=== PATIENT | female | born 1945 | race Caucasian/White ===

== ENCOUNTER 2017-12-27 15:08 | Outpatient (CLI) | payer MEDICARE, OTHER | END 2017-12-27 15:09 | disposition home or self-care (01) | LOC: BICRAD 15:08 | PROVIDERS: ATTEND Family Medicine | DX: M54.9 Dorsalgia, unspecified (principal) | CPT/HCPCS: 72072; 72100 ==

== ENCOUNTER 2018-03-01 09:09 | Outpatient (CLI) | payer MEDICARE ==
--- NOTE | 2018-03-01 10:46 | RAD ---
CHEST TWO VIEWS: HISTORY: Dyspnea. COMPARISON: Chest radiograph from 11/03/2016. FINDINGS: There is an asymmetric density of the left upper lobe, which appears relatively new from the comparis on examination. There are chronic peripheral interstitial markings. There are multiple wedge compression deformities of the lower thoracic spine, progressed from the cesar or examination. There are also mid thoracic spine compression deformities. IMPRESSION: 1. New nodular density in the left upper lobe, peripherally. Follow-up CT chest may be beneficial. 2. Progressive spondylosis with worsening and new compression fractures of the thoracic spine and th oracolumbar junction. POS: [facility]
== END 2018-03-01 09:10 | disposition home or self-care (01) ==
LOC: RAD 09:09
PROVIDERS: ATTEND Internal Medicine
DX: R91.8 Other nonspecific abnormal finding of lung field (principal); M47.895 Other spondylosis, thoracolumbar region; M48.55XA Collapsed vertebra, not elsewhere classified, thoracolumbar region, initial encounter for fracture
CPT/HCPCS: 71046

== ENCOUNTER 2018-03-07 08:16 | Outpatient (CLI) | payer MEDICARE | END 2018-03-07 08:17 | disposition home or self-care (01) | LOC: BICCT 08:16 | PROVIDERS: ATTEND Internal Medicine | DX: R91.1 Solitary pulmonary nodule (principal); S22.089A Unspecified fracture of T11-T12 vertebra, initial encounter for closed fracture | CPT/HCPCS: 71250 ==

== ENCOUNTER 2018-07-03 13:12 | Emergency (ER) | payer MEDICARE ==
[2018-07-03 14:56] LABS: #Eosinphils 0.1 thou/uL (0.0-0.7); #Lymphocytes 1.6 thou/uL (1.20-3.40); #Monocytes 0.8 thou/uL (0.11-0.59); #Neutrophils 5.9 thou/uL (1.40-6.50); %Basophils 0.5 % (0.0-1.0); %Eosinophils 0.9 % (0.0-10.0); %Lymphocytes 18.6 % (21.0-51.0); %Monocytes 9.1 % (0.0-10.0); %Neutrophils 70.9 % (42.0-75.0); Hemoglobin 10.9 g/dL (12.0-16.0); Mean Corpuscular HGB CONC 32.2 g/dL (32.0-36.0); Mean Corpuscular Hemoglobin 19.9 pg (27.0-31.0); Mean Corpuscular Volume 61.8 fL (78.0-98.0); Mean Platelet Volume 9.9 fL (7.4-10.4); Platelet Count 179 thou/uL (130-400); RBC Distribution Width 15.4 % (11.5-14.5); Red Blood Cell (RBC) Count 5.49 mill/uL (4.20-5.40); White Blood Cell (WBC) Count 8.3 thou/uL (4.8-10.8)
[2018-07-03 15:11] LABS: Anion Gap 14 mmol/L (10-20); BUN (Urea Nitrogen) 36 mg/dL (9.8-20.1); Calc. Creatinine Clearance 0 mL/min (70-130); Calcium 9.5 mg/dL (7.8-10.44); Carbon Dioxide 21 mmol/L (23-31); Chloride 107 mmol/L (98-107); Estimated GFR-MDRD 29; Glucose 123 mg/dL (83-110); Potassium 3.9 mmol/L (3.5-5.1); Sodium 138 mmol/L (136-145)
--- NOTE | 2018-07-03 15:31 | CT ---
PELVIC CT WITHOUT CONTRAST: Date: 07/03/18 INDICATION: Pelvic CT without contrast. INDICATION: Post-traumatic pelvic pain. FINDINGS: Reference is made to recent radiographs, same date. There is a comminuted, mildly displaced fracture at the left iliac ala, as was depicted on preceding radiographs. Mild surrounding soft tissue hematoma is present, indicating acuity, along with the frac ture appearance. There is a mild degree of high density fluid occupying the left retroperitoneum and asymmetric enlargement of the left iliacus muscle indicative of intramuscular hematoma. As was depict ed on preceding radiographs, there is a chronic fracture deformity of the inferior left pubic ramus. Subtle cortical irregularity also involves the lateral aspect of the left superior pubic ramus, also indicative of a chronic post-traumatic deformity. There is diffuse osseous demineralization. Incidental note of vascular disease and cholelithiasis. There is patient motion that degrades image q uality. IMPRESSION: Comminuted, mildly displaced fracture of the left iliac ala with adjacent hematoma, including intramu scular hematoma, as well as extension of mild hemorrhagic ascites into the left retroperitoneum. Foll ow-up imaging may be obtained as clinically necessary. POS: [facility]
== END 2018-07-03 16:15 | disposition home or self-care (01) ==
LOC: ERS 13:12
DX: S32.302A Unspecified fracture of left ilium, initial encounter for closed fracture (principal); M81.0 Age-related osteoporosis without current pathological fracture; E03.9 Hypothyroidism, unspecified; I10 Essential (primary) hypertension; J44.9 Chronic obstructive pulmonary disease, unspecified; F41.9 Anxiety disorder, unspecified; Z87.891 Personal history of nicotine dependence; Z79.899 Other long term (current) drug therapy; Z79.82 Long term (current) use of aspirin; W19.XXXA Unspecified fall, initial encounter
CPT/HCPCS: 36415; 72192; 80048; 85025

== ENCOUNTER 2018-08-30 14:03 | Outpatient (CLI) | payer MEDICARE ==
--- NOTE | 2018-08-30 16:48 | RAD ---
TWO VIEWS OF THE CHEST: 08/30/18 COMPARISON: 10/09/16 HISTORY: Walking pneumonia. FINDINGS: Two views of the chest shows a normal sized cardiomediastinal silhouette with atherosclerotic calcifi cations in the aorta. Increased interstitial markings are present. There is no evidence of consolidat ion, mass or pleural effusion. Degenerative changes are seen in the spine. There are multiple tierra jaden fractures in the lower thoracic spine. IMPRESSION: No evidence of acute cardiopulmonary disease. POS: [facility]
== END 2018-08-30 14:04 | disposition home or self-care (01) ==
LOC: RAD 14:03
PROVIDERS: ATTEND Family Medicine
DX: J18.9 Pneumonia, unspecified organism (principal)
CPT/HCPCS: 36415; 71046; 80053; 85025; 85060

== ENCOUNTER 2018-08-31 12:14 | Inpatient (IN) | payer MEDICARE ==
--- NOTE | 2018-08-31 12:51 | RAD ---
CHEST TWO VIEWS: History: Chest pain Comparison: Prior day. FINDINGS: Mild increased peripheral opacity in the right lung base. Chronic interstitial markings in both lung bases. No pneumothorax, no large effusion. IMPRESSION: Findings concerning for developing pneumonia, peripheral right lower lobe. POS: [facility]
[2018-08-31] MEDS ORDERED: Azithromycin 500 MG VIAL ONE (13:12)
[2018-08-31 13:24] LABS: ALT (SGPT) 8 U/L (8-55); AST (SGOT) 14 U/L (5-34); Alkaline Phosphatase 107 U/L (40-150); Anion Gap 18 mmol/L (10-20); BUN (Urea Nitrogen) 17 mg/dL (9.8-20.1); Bilirubin, Total 2.2 mg/dL (0.2-1.2); Calc. Creatinine Clearance 0 mL/min (70-130); Calcium 9.3 mg/dL (7.8-10.44); Carbon Dioxide 21 mmol/L (23-31); Chloride 105 mmol/L (98-107); Estimated GFR-MDRD 43; Globulin 3.8 g/dL (2.4-3.5); Glucose 136 mg/dL (83-110); Potassium 3.9 mmol/L (3.5-5.1); Protein, Total 7.8 g/dL (6.0-8.3); Sodium 140 mmol/L (136-145)
[2018-08-31 13:27] LABS: #Lymphocytes 0.4 thou/uL (1.20-3.40); #Monocytes 0.7 thou/uL (0.11-0.59); #Neutrophils 8.9 thou/uL (1.40-6.50); %Basophils 0.5 % (0.0-1.0); %Lymphocytes 4.3 % (21.0-51.0); %Monocytes 7.1 % (0.0-10.0); %Neutrophils 88.1 % (42.0-75.0); Anisocytosis SLIGHT = 6-15 cells (100X) (0-5/hpf); Elliptocytes SLIGHT = 2-5 cells (100X) (0-1/hpf); Hemoglobin 8.2 g/dL (12.0-16.0); Hypochromia SLIGHT = 6-15 cells (100X) (0-5/hpf); MDiff Complete? YES; Mean Corpuscular HGB CONC 30.2 g/dL (32.0-36.0); Mean Corpuscular Hemoglobin 18.7 pg (27.0-31.0); Mean Platelet Volume 7.6 fL (7.4-10.4); Microcytosis SLIGHT = 6-15 cells (100X) (0-5/hpf); PLT Morphology Comment Appears Adequate; Platelet Count 123 thou/uL (130-400); RBC Distribution Width 15.6 % (11.5-14.5); Target Cells SLIGHT = 2-5 cells (100X) (0-1/hpf); Tear Drops SLIGHT = 2-5 cells (100X) (0-1/hpf); White Blood Cell (WBC) Count 10.1 thou/uL (4.8-10.8)
[2018-08-31] MEDS ORDERED: Sodium Chloride 0.9% 100 ML ONE (14:23)
[2018-08-31] MEDS ORDERED: cefTRIAXone\\ROCEPHIN 2 GM VIAL ONE (14:23)
[2018-08-31 15:39] VITALS: BMI 25.0
[2018-08-31] MEDS ORDERED: Sodium Chloride 0.9% 1,000 ML IV SCH ×2 (15:50→17:23)
[2018-08-31 18:17] LABS: #Lymphocytes 0.7 thou/uL (1.20-3.40); #Monocytes 0.7 thou/uL (0.11-0.59); #Neutrophils 7.7 thou/uL (1.40-6.50); %Basophils 0.2 % (0.0-1.0); %Eosinophils 0.1 % (0.0-10.0); %Lymphocytes 8.1 % (21.0-51.0); %Monocytes 7.8 % (0.0-10.0); %Neutrophils 83.8 % (42.0-75.0); Hemoglobin 8.1 g/dL (12.0-16.0); Mean Corpuscular HGB CONC 30.9 g/dL (32.0-36.0); Mean Corpuscular Hemoglobin 19.3 pg (27.0-31.0); Mean Corpuscular Volume 62.4 fL (78.0-98.0); Mean Platelet Volume 10.4 fL (7.4-10.4); Platelet Count 179 thou/uL (130-400); RBC Distribution Width 17.6 % (11.5-14.5); Red Blood Cell (RBC) Count 4.21 mill/uL (4.20-5.40); White Blood Cell (WBC) Count 9.2 thou/uL (4.8-10.8)
[2018-08-31 18:46] LABS: Anisocytosis SLIGHT = 6-15 cells (100X) (0-5/hpf); Hypochromia SLIGHT = 6-15 cells (100X) (0-5/hpf); MDiff Complete? YES; Microcytosis SLIGHT = 6-15 cells (100X) (0-5/hpf); Ovalocytes SLIGHT = 2-5 cells (100X) (0-1/hpf); PLT Morphology Comment Appears Adequate; Poikilocytosis SLIGHT = 6-15 cells (100X) (0-5/hpf); Polychromasia SLIGHT = 2-3 cells (100X) (0-2/hpf); Schistocytes SLIGHT = 2-5 cells (100X) (0-1/hpf); Target Cells SLIGHT = 2-5 cells (100X) (0-1/hpf); Tear Drops SLIGHT = 2-5 cells (100X) (0-1/hpf)
--- NOTE | 2018-09-01 00:19 | HP ---
HISTORY OF PRESENT ILLNESS: This is a 73-year-old white female with history of COPD, hypothyroidism, and hypertension, who presents with cough and fever. The patient was seen in the office the day prior and was diagnosed with walking pneumonia and was given a prescription of Levaquin. However, the patient continued to have increasing cough, congestion, and shortness of breath. She had a fever of 100.6 at home. She presented to the emergency room, where her O2 saturations were noted to be in the upper 80s and was admitted for further treatment. Over the years, the patient has had several bouts of bronchitis/pneumonia with COPD exacerbations. She has been followed by Dr. Peña in the office. PAST MEDICAL HISTORY: COPD, hypothyroidism, hypertension, tobacco abuse; osteoporosis, severe. PAST SURGICAL HISTORY: Include PE tubes, colonoscopy in 2009. FAMILY HISTORY: Father , unknown reason. Mother with heart disease. Maternal aunt with diabetes. The patient does have one son and two daughters, who are healthy. SOCIAL HISTORY: She is a former smoker, she quit in 04/15/2015 and began smoking in her mid 20s. Therefore, she has about a 50-year tobacco history. She is single. She does have three children. MEDICATIONS: Include; 1. Aspirin 81 daily. 2. Folic acid 400 daily. 3. DuoNeb treatments p.r.n. 4. Nexium daily. 5. Trelegy Ellipta 1 puff daily. 6. Simvastatin 20 daily. 7. Zoloft 50 daily. 8. Losartan 25 daily. 9. Levothyroxine 75 daily. ALLERGIES: NONE. REVIEW OF SYSTEMS: As above. PHYSICAL EXAMINATION: VITAL SIGNS: Temperature 98.0, pulse 78, respirations 22, pulse ox 98% on 2 L O2, and blood pressure 126/59. GENERAL: The patient looks good at this time. She is on 2 L O2. HEENT: Clear. NECK: Supple. HEART: Regular rate and rhythm. LUNGS: With no wheezing present. Bilateral diffuse rales. ABDOMEN: Soft. No hepatosplenomegaly noted. EXTREMITIES: With no edema. LABORATORY DATA: White count 10.1, hemoglobin and hematocrit 8.2 and 27.3, anemia. Electrolytes normal. Creatinine 1.22, BUN 17, glucose 136. TIBC 160, iron was 30 recently with a ferritin level of 732, but prior ferritin was 2500 in September of 2016; in March of 2017, it was 932. 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 Urine showed 7 to 10 rbc's. Chest x-ray with right lower lobe pneumonia. ASSESSMENT: 1. Right lower lobe pneumonia with sepsis. Blood pressure noted to be low in the ER. 2. Dehydration. 3. Hyperbilirubinemia, mild. 4. Beta thalassemia minor. 5. History of recent pelvic fracture from a fall. PLAN: 1. Hydrate slowly. 2. Rocephin and Zithromax IV daily. 3. Steroid, Solu-Medrol 20 IV q.8. 4. DuoNeb q.6. 5. Abdominal ultrasound. 6. Check blood cultures. Job ID: [id number]
[2018-09-01 06:15] LABS: ALT (SGPT) 9 U/L (8-55); AST (SGOT) 14 U/L (5-34); Albumin 3.1 g/dL (3.4-4.8); Alkaline Phosphatase 94 U/L (40-150); Anion Gap 12 mmol/L (10-20); BUN (Urea Nitrogen) 14 mg/dL (9.8-20.1); Bilirubin, Total 0.7 mg/dL (0.2-1.2); Calc. Creatinine Clearance 46 mL/min (70-130); Calcium 7.9 mg/dL (7.8-10.44); Carbon Dioxide 20 mmol/L (23-31); Chloride 111 mmol/L (98-107); Estimated GFR-MDRD 57; Glucose 142 mg/dL (83-110); Iron 8 ug/dL (50-170); Potassium 3.7 mmol/L (3.5-5.1); Protein, Total 6.1 g/dL (6.0-8.3); Sodium 139 mmol/L (136-145)
--- NOTE | 2018-09-01 08:02 | ULT ---
SONOGRAM RIGHT UPPER QUADRANT: HISTORY: Right upper quadrant pain. Abnormal liver function tests. FINDINGS: Echogenic sludge and shadowing stones are present in the dependent portion of the gallbladder lumen. No gallbladder wall thickening or pericholecystic fluid. The common duct is 0.6 cm. Liver unremark able without focal mass or intrahepatic biliary dilatation. No free fluid. IMPRESSION: Cholelithiasis. No evidence of acute biliary obstruction. POS: [facility]
[2018-09-01] MEDS: Enoxaparin Sodium 40 MG/0.4 ML SYRINGE SC SCH (10:41)
--- NOTE | 2018-09-01 12:55 | PRG ---
DATE OF SERVICE: 09/01/2018 SUBJECTIVE: The patient is feeling better this morning. However, she still has a significant productive cough. She is on 2 L of O2. OBJECTIVE: VITAL SIGNS: Temperature is 98.2, heart rate 79, respirations 16, and pulse ox 97% on O2 of 2 L. HEART: Regular rate and rhythm. LUNGS: Occasional expiratory wheeze other than the diffuse rales. ABDOMEN: Soft. EXTREMITIES: No edema. LABORATORY DATA: White count 9.2, H and H of 8.1 and 26.3. Electrolytes normal. Creatinine 0.96 and BUN 14. Iron level 8. Ferritin 2145. Abdominal ultrasound done this morning. ASSESSMENT: 1. Right lower lobe pneumonia. 2. Dehydration. 3. Hypotension, resolved. 4. Mild hyperbilirubinemia. 5. Beta thalassemia minor. 6. History of recent pelvic fracture from a fall. PLAN: 1. Continue to slowly hydrate. 2. Continue Rocephin and Zithromax. 3. Continue steroids. 4. Continue DuoNeb. 5. Check abdominal ultrasound. 6. Low iron level and elevated ferritin consistent with acute phase reactant. May still require iron supplementation. We will discuss with Hem-Onc. Job ID: [id number]
[2018-09-01] MEDS ORDERED: Azithromycin 500 MG in Sodium Chloride 0.9% 250 ML 250 ML IVPB SCH (13:00)
[2018-09-01] MEDS ORDERED: cefTRIAXone\\ROCEPHIN 1 GM in Sodium Chloride 0.9% 100 ML IVPB SCH (14:00)
[2018-09-02 07:35] VITALS: BP 163/79; TEMP 97.4
[2018-09-02] MEDS: Enoxaparin Sodium 40 MG/0.4 ML SYRINGE SC SCH (08:29)
--- NOTE | 2018-09-03 01:23 | DIS ---
DATE OF ADMISSION: 08/31/2018 DATE OF DISCHARGE: 09/02/2018 DISCHARGE DIAGNOSES: 1. Right lower lobe pneumonia. 2. Dehydration. 3. Hypertension, resolved. 4. Mild hyperbilirubinemia. 5. Cholelithiasis. 6. Beta thalassemia minor. 7. History of recent pelvic fracture from a fall. FOLLOWUP: With Dr. Khoi Garvey in 3 days. DISCHARGE MEDICATIONS: 1. Cefdinir 300 p.o. b.i.d., #20. 2. Medrol Dosepak. 3. DuoNeb treatments at home q.6h p.r.n. 4. Folic acid daily. 5. Aspirin 81 daily. 6. Nexium 20 daily. 7. Levothyroxine 75 daily. 8. Loratadine 10 daily. 9. Losartan 25 daily. 10. Sertraline 50 daily. 11. Simvastatin 20 daily. BRIEF HISTORY: This is a 73-year-old female with a history of COPD, hypothyroidism and hypertension, presents with cough and fever. She was seen in the office 1 day prior and was diagnosed with pneumonia and given a prescription of Levaquin, however, she continued to have increasing cough and congestion with shortness of breath. She had a fever of 100.6 at home. She presented to the emergency room, where her O2 saturations were less than 90. HOSPITAL COURSE: This patient was admitted, started on Rocephin and Zithromax IV daily. Over two days, she improved dramatically. She is doing well this morning. She is desiring to go home. She will be sent home on cefdinir and a Medrol Dosepak. She is doing well this morning. A chest x-ray did reveal right lower lobe pneumonia. Job ID: [id number]
--- NOTE | 2018-09-05 13:25 | PQF ---
LEXI TALAMANTES DAVID R JR MD [id number] CLINICAL DOCUMENTATION CLARIFICATION FORM: POST DISCHARGE Addendum to original discharge summary date: ____ Late entry note date: __ DATE: 09/05/2018 ATTN: KOKO SARKAR Please exercise your independent, professional judgment in responding to the clarification form. Clinical indicators are provided on the bottom of this form for your review Please check appropriate box(s) to clarify if the following diagnosis has been ruled in or ruled out: SEPSIS [ ] Ruled in diagnosis [ ] Continue to treat [ ] Resolved [ ] Ruled out diagnosis [ ] Cannot rule out diagnosis [ ] Other diagnosis [ ] Unable to determine In addition, please specify: Present on Admission (POA): [ ] Yes [ ] No [ ] Unable to determine For continuity of documentation, please document condition throughout progress notes and discharge summary. Thank You. CLINICAL INDICATORS - SIGNS / SYMPTOMS / LABS: 08/31 H&P - Vitals: Temp: 98.0, Pulse: 78, Respirations: 22 Right lower lobe pneumonia with sepsis - Blood pressure low in the ER. 09/01 PN - Hypotension, resolved No further documentation of Sepsis documented. DS - Right lower lobe pneumonia RISK FACTORS: Right lower lobe pneumonia Dehydration Beta thalassemia minor TREATMENTS: 08/31 H&P - IV Antibiotics - Rocephin, Zithromax (This form is maintained as a part of the permanent medical record) 2014 [employer], [employer]. All Rights Reserved Jayne Batista, [facility], [facility] [email or web address] [phone] MTDD
== END 2018-09-02 10:09 | disposition home or self-care (01) | DRG 194 ==
LOC: SCSER 12:14 → T4-B 15:26
PROVIDERS: ADMIT Family Medicine; ATTEND Family Medicine
DX: J18.1 Lobar pneumonia, unspecified organism (principal); J44.0 Chronic obstructive pulmonary disease with (acute) lower respiratory infection; E86.0 Dehydration; D56.3 Thalassemia minor; E03.9 Hypothyroidism, unspecified; I10 Essential (primary) hypertension; M81.0 Age-related osteoporosis without current pathological fracture; Z87.891 Personal history of nicotine dependence; S32.9XXD Fracture of unspecified parts of lumbosacral spine and pelvis, subsequent encounter for fracture with routine healing; W19.XXXD Unspecified fall, subsequent encounter; K80.20 Calculus of gallbladder without cholecystitis without obstruction
CPT/HCPCS: 36415; 71046; 76705; 80053; 82728; 83540; 83605; 85025; 87040; 94640; 96365; 96367; G8978-GP-CK; G8979-GP-CK; G8980-GP-CK; J0456; J0696; J1650; J2920; J7050; J7620

== ENCOUNTER 2018-09-27 15:14 | Inpatient (IN) | payer MEDICARE ==
[2018-09-27 16:21] LABS: ALT (SGPT) 12 U/L (8-55); AST (SGOT) 14 U/L (5-34); Albumin 3.4 g/dL (3.4-4.8); Alkaline Phosphatase 113 U/L (40-150); Anion Gap 12 mmol/L (10-20); BUN (Urea Nitrogen) 19 mg/dL (9.8-20.1); Bilirubin, Total 1.4 mg/dL (0.2-1.2); Calc. Creatinine Clearance 0 mL/min (70-130); Calcium 8.3 mg/dL (7.8-10.44); Carbon Dioxide 20 mmol/L (23-31); Chloride 110 mmol/L (98-107); Estimated GFR-MDRD 38; Globulin 2.6 g/dL (2.4-3.5); Glucose 131 mg/dL (83-110); Potassium 3.8 mmol/L (3.5-5.1); Sodium 138 mmol/L (136-145)
[2018-09-27 16:35] LABS: #Eosinphils 0.1 thou/uL (0.0-0.7); #Lymphocytes 0.7 thou/uL (1.20-3.40); #Monocytes 0.6 thou/uL (0.11-0.59); #Neutrophils 9.6 thou/uL (1.40-6.50); %Eosinophils 0.5 % (0.0-10.0); %Lymphocytes 6.4 % (21.0-51.0); %Monocytes 5.5 % (0.0-10.0); %Neutrophils 87.6 % (42.0-75.0); Hemoglobin 8.8 g/dL (12.0-16.0); Mean Corpuscular HGB CONC 31.7 g/dL (32.0-36.0); Mean Corpuscular Hemoglobin 19.8 pg (27.0-31.0); Mean Corpuscular Volume 62.4 fL (78.0-98.0); Mean Platelet Volume 7.9 fL (7.4-10.4); Platelet Count 170 thou/uL (130-400); RBC Distribution Width 19.3 % (11.5-14.5); Red Blood Cell (RBC) Count 4.44 mill/uL (4.20-5.40)
[2018-09-27 17:11] LABS: Bilirubin Moderate (Negative); Blood, Urine Negative (Negative); Clarity CLOUDY (Clear); Glucose, Urine (Dipstick) Negative (Negative); Leukocyte Small (Negative); Nitrite Negative (Negative); Protein, Urine (Dipstick) 100 mg/dL (Neg-Trace); Specific Gravity, Urine 1.021 (1.002-1.036)
[2018-09-27 17:13] LABS: WBC/HPF 0-3 HPF (0-3)
[2018-09-27 17:15] LABS: Pathc Cast-AUWi Flag 11.48 (0-2.49)
--- NOTE | 2018-09-27 17:17 | RAD ---
SINGLE VIEW OF THE CHEST: COMPARISON: 10/08/2016. HISTORY: Fall this morning. Femur fracture. Preoperative radiograph. FINDINGS: A single view of the chest shows a normal-size cardiomediastinal silhouette with atherosclerotic calc ifications in the aorta. There is no evidence of consolidation, mass, or pleural effusion. IMPRESSION: No evidence of acute cardiopulmonary disease. POS: [facility]
--- NOTE | 2018-09-27 17:21 | HP ---
ATTENDING SURGEON: Dr. Jalloh. CONSULTATIONS: Orthopedics, Dr. Bryan. HISTORY OF PRESENT ILLNESS: The patient is a 73-year-old woman who was reportedly walking on her porch today when she slipped and fell, landing in a flower bed. She reports that she laid there for 30 to 60 minutes before being able to be helped back in her house. The patient denied loss of consciousness, striking her head or any syncopal symptoms before or after her fall. [facility] where she underwent evaluation and examination and was noted to have a proximal left femur fracture, at which time she was transferred to our facility for admission and orthopedic evaluation. ALLERGIES: NONE. CURRENT MEDICATIONS: Synthroid, aspirin, Zoloft, losartan, simvastatin, Breo Ellipta. PAST MEDICAL HISTORY: COPD, hypothyroidism, hypertension, osteoporosis, chronic anemia thought to be thalassemia, anxiety. PAST SURGICAL HISTORY: Hysterectomy. SOCIAL HISTORY: The patient lives independently at home. She is a former tobacco user. She quit smoking approximately 10 years ago. Denies drug or alcohol use. REVIEW OF SYSTEMS: A 10-point review of systems is negative as otherwise stated. PHYSICAL EXAMINATION: VITAL SIGNS: Blood pressure 112/63, heart rate 71, respirations 16, oxygen saturation is 93% on room air, and temperature is 97.9. GENERAL: The patient is resting comfortably in bed. She is awake, alert, and oriented x3. Isadora Coma Scale is 15. HEENT: Head is normocephalic and atraumatic. Eyes, extraocular motion intact. PERRLA bilaterally. Ears are atraumatic without discharge. Nose are atraumatic without discharge. Oropharynx is clear. NECK: Nontender. Trachea is midline. No JVD. CHEST: Clear to auscultation with good inspiratory and expiratory effort. HEART: Regular rate and rhythm. ABDOMEN: Soft, flat, nontender with active bowel sounds. PELVIS: Stable with tenderness to the left hip consistent with her proximal femur fracture. The patient is neurovascularly intact x4. BACK: By report is atraumatic and nontender. LABORATORY FINDINGS: White blood cell count 11.0, hemoglobin 8.8, hematocrit 27.7, platelets 170. Sodium 138, potassium 3.8, chloride 110, CO2 of 20, BUN 19, creatinine 1.35, glucose 131. LFTs are unremarkable. RADIOGRAPHS: Subtrochanteric left proximal femur fracture. AP chest x-ray is unremarkable for acute findings. ASSESSMENT AND PLAN: 1. Status post mechanical fall. 2. Left proximal femur fracture. 3. History of chronic obstructive pulmonary disease. 4. History of chronic anemia. 5. Acute kidney injury. PLAN: Plan will be to hydrate the patient. Pain control, pulmonary toilet, gastritis, mechanical VTE prophylaxis. The patient will be n.p.o. after midnight. The patient was evaluated in the emergency department by Dr. Jalloh and Dr. Bryan. Job ID: [id number]
[2018-09-27 17:34] LABS: Hyaline Casts/LPF 4-6 HYALINE CAST LPF (0-3 Hyaline); Manual Microscopic Reviewed? No Path Casts Seen
[2018-09-27 17:35] LABS: Bacteria/HPF 1+ HPF (None Seen); Renal Epithelial None Seen HPF (0-3); Transitional Epithelial NONE SEEN HPF (0-3)
[2018-09-27] MEDS ORDERED: Ondansetron ODT 4 MG TAB PO PRN (21:01)
[2018-09-27] MEDS ORDERED: traMADol HCl 50 MG TAB PO PRN ×2 (21:01)
[2018-09-27] MEDS ORDERED: Dextrose 5% in Water 1,000 ML IV PRN (21:01)
[2018-09-27] MEDS ORDERED: Ondansetron PF 4 MG/2 ML Vial IVP PRN (21:01)
[2018-09-27] MEDS ORDERED: Morphine 4 MG/ML VIAL SLOW IVP PRN ×2 (21:01)
[2018-09-27] MEDS ORDERED: hydrALAZINE 20 MG/ML VIAL SLOW IVP PRN (21:01)
[2018-09-27] MEDS ORDERED: Dextrose 50% Abboject 50 ML SYRINGE SLOW IVP PRN (21:01)
[2018-09-27] MEDS: Sodium Chloride 0.9% 1,000 ML IV SCH (22:02)
[2018-09-27] MEDS: Acetaminophen 1,000 MG in Premix Bag 1 BAG IVPB SCH (22:02)
[2018-09-27 22:24] VITALS: BMI 22.9
[2018-09-28] MEDS: Acetaminophen 1,000 MG in Premix Bag 1 BAG IVPB SCH ×4 (03:40→22:38)
[2018-09-28] MEDS ORDERED: Sodium Chloride 0.9% 500 ML IVPB SCH (06:15)
--- NOTE | 2018-09-28 07:30 | CON ---
DATE OF CONSULTATION: REQUESTING PHYSICIAN: Dr. Mazin Jalloh. BRIEF HISTORY OF PRESENT ILLNESS: The patient is a pleasant 73-year-old lady, who was examined in the emergency room at [facility] with her son and granddaughter at bedside. She reports that earlier on the day of admission, she was walking on her porch when she slipped, fell, and landed in a flower bed. She estimates that she was in the flower bed for somewhere less than 1 hour, although she does not know the exact time. She denies loss of consciousness. She was brought to the urgent care facility in [facility], where evaluation included x-ray of the left femur, which demonstrated a subtrochanteric femur fracture with displacement. As such, the patient subsequently transferred to [facility] for definitive care and orthopedic evaluation. MEDICATIONS: Include Zoloft, losartan, simvastatin, aspirin, and Synthroid as well as an inhaler. ALLERGIES: NONE KNOWN. PAST MEDICAL HISTORY: Includes COPD, hypertension, history of chronic anemia and currently has an appointment for further workup with Hematology, and hypothyroidism. PAST SURGICAL HISTORY: Hysterectomy. SOCIAL HISTORY: She lives by herself in an independent home. She is a community ambulator. She does have a past history of cigarette smoking, which she stopped 10 years ago. Denies drug or alcohol use. REVIEW OF SYSTEMS: Denies recent fevers, chills, or sweats. Denies chest pain or shortness of breath. Denies numbness or tingling in lower extremities. PHYSICAL EXAMINATION: VITAL SIGNS: On initial evaluation in the emergency room, she was found to have a temperature of 97.9, heart rate of 71, respiratory rate of 16, and blood pressure of 112/63. HEENT: Atraumatic, normocephalic. HEART: Shows a regular rate and rhythm without murmur. LUNGS: Clear to auscultation bilaterally with good breath sounds. Chest wall nontender. ABDOMEN: Benign. Pelvis is stable to compression. She does not have any posterior pelvic pain. EXTREMITIES: Remarkable for bilateral upper extremities that are atraumatic. Right lower extremity also atraumatic. Left lower extremity that is held with slight shortening and external rotation at the hip. She has pain to palpation of the proximal femur. The knee, ankle, and foot appear atraumatic. There are no external signs of trauma. She is wiggling her toes normally and reports normal sensation distally. LABORATORY DATA: White count of 11, hematocrit of 27.7, and 170,000 platelets. X-rays, two view x-ray of left femur remarkable for a high subtrochanteric femur fracture with displacement. ASSESSMENT: A 73-year-old lady status post ground level fall sustaining a high subtrochanteric femur fracture with displacement. PLAN: At this time, the patient will be admitted to the Trauma Service. She will be n.p.o. after midnight with plans to proceed to the operating room tomorrow for a trochanteric femoral nail. Today, I have discussed with the patient, risks and benefits of the surgery. Risks include, but are not limited to bleeding, infection, nerve injury, DVT, PE, malunion, nonunion, loss of limb or life. The patient appears to understand as does her son. Informed consent will be obtained prior to surgery. Job ID: [id number]
[2018-09-28 08:15] LABS: #Eosinphils 0.2 thou/uL (0.0-0.7); #Lymphocytes 1.4 thou/uL (1.20-3.40); #Monocytes 0.6 thou/uL (0.11-0.59); #Neutrophils 3.4 thou/uL (1.40-6.50); %Basophils 0.2 % (0.0-1.0); %Eosinophils 2.9 % (0.0-10.0); %Lymphocytes 24.8 % (21.0-51.0); %Monocytes 10.1 % (0.0-10.0); Hemoglobin 6.5 g/dL (12.0-16.0); Mean Corpuscular HGB CONC 31.4 g/dL (32.0-36.0); Mean Corpuscular Hemoglobin 19.7 pg (27.0-31.0); Mean Corpuscular Volume 62.7 fL (78.0-98.0); Mean Platelet Volume 7.2 fL (7.4-10.4); Platelet Count 141 thou/uL (130-400); RBC Distribution Width 19.5 % (11.5-14.5); Red Blood Cell (RBC) Count 3.32 mill/uL (4.20-5.40); White Blood Cell (WBC) Count 5.5 thou/uL (4.8-10.8)
[2018-09-28 08:21] LABS: Anion Gap 13 mmol/L (10-20); BUN (Urea Nitrogen) 25 mg/dL (9.8-20.1); Calc. Creatinine Clearance 29 mL/min (70-130); Calcium 7.6 mg/dL (7.8-10.44); Carbon Dioxide 19 mmol/L (23-31); Chloride 112 mmol/L (98-107); Estimated GFR-MDRD 36; Glucose 80 mg/dL (83-110); Potassium 3.8 mmol/L (3.5-5.1); Sodium 140 mmol/L (136-145)
[2018-09-28] MEDS: Famotidine 20 MG TAB PO SCH (08:45)
[2018-09-28 08:51] LABS: Hypochromia SLIGHT = 6-15 cells (100X) (0-5/hpf); MDiff Complete? YES; Microcytosis MODERATE=15-30 cells (100X) (0-5/hpf); Platelet Morphology Comment Appears Adequate; Polychromasia SLIGHT = 2-3 cells (100X) (0-2/hpf); Tear Drops MODERATE= 6-15 cells (100X) (0-1/hpf)
[2018-09-28] MEDS ORDERED: CEFAZOLIN/Water 2 GM/20 ML SYRINGE SLOW IVP SCH ×2 (09:15→16:13)
[2018-09-28] MEDS ORDERED: CEFAZOLIN 2 GM/50 ML-DEXTROSE 2 GM in Premix Bag 1 BAG IVPB SCH (10:15)
[2018-09-28] MEDS: Sodium Chloride 0.9% 1,000 ML IV SCH ×3 (10:26→22:43)
[2018-09-28] MEDS ORDERED: Fentanyl 100 MCG/2 ML VIAL ONE (13:30)
[2018-09-28] MEDS ORDERED: CEFAZOLIN 2 GM/50 ML BAG ONE (13:31)
[2018-09-28] MEDS ORDERED: Ondansetron HCl/PF 4 MG/2 ML Vial IVP PRN (15:15)
[2018-09-28] MEDS ORDERED: Promethazine HCl 25 MG/ML VIAL SLOW IVP PRN (15:15)
[2018-09-28] MEDS ORDERED: Promethazine HCl 25 MG/ML VIAL IM PRN (15:15)
[2018-09-28] MEDS ORDERED: Ondansetron PF 4 MG/2 ML Vial ONE (15:20)
[2018-09-28] MEDS ORDERED: Lidocaine 1% PF 5 ML VIAL ONE (15:20)
[2018-09-28] MEDS ORDERED: PROPOFOL 200 MG/20 ML VIAL ONE (15:20)
[2018-09-28] MEDS ORDERED: Rocuronium Bromide 10 MG/ML (10ML VIAL) ONE (15:20)
[2018-09-28] MEDS ORDERED: Glycopyrrolate 0.2 MG/ML 5 ML SYRINGE ONE (15:20)
[2018-09-28] MEDS ORDERED: PHENYLEPHRINE-NS 100 MCG/ML 10 ML SYRINGE ONE (15:20)
--- NOTE | 2018-09-28 15:33 | PRG ---
DATE OF SERVICE: 09/28/2018 SUBJECTIVE: The patient is currently on the surgical floor. She has been n.p.o. since midnight awaiting orthopedic surgery for her fracture. Overnight, she did well. Her pain was controlled, and she has no complaints this morning. PHYSICAL EXAMINATION: VITAL SIGNS: Temperature 98.1, heart rate 73, blood pressure 128/76, respirations 18, oxygen saturation 92% on room air. GENERAL: The patient is resting comfortably in bed. She is awake, alert, and oriented x3. HEENT: Unremarkable. LUNGS: Clear to auscultation with good inspiratory and expiratory effort. HEART: Regular rate and rhythm. ABDOMEN: Soft, flat, nontender with active bowel sounds. EXTREMITIES: Neurovascularly intact x4. LABORATORY FINDINGS: White blood cell count 5.5, hemoglobin 6.5, hematocrit 20.8, platelets 141. Sodium 140, potassium 3.8, chloride 112, CO2 of 19, BUN 25, creatinine 1.42, glucose 80. RADIOGRAPHIC DATA: There are no radiographs reviewed this morning. ASSESSMENT AND PLAN: 1. Status post fall. 2. Left proximal femur fracture, awaiting Orthopedic intervention. 3. History of chronic obstructive pulmonary disease. 4. History of chronic anemia. 5. Acute kidney injury. PLAN: Will be to continue hydrating the patient. The patient will be transfused 2 units of packed red blood cells, will be started here, and if needed continued while in the operating room. The patient will also have 2 units ready postoperatively. We will check her labs postoperative and when appropriate, we will start Physical and Occupational therapy mobilization and discuss discharge planning with the patient. The patient was evaluated this morning with Dr. Jalloh during rounds. Job ID: [id number]
--- NOTE | 2018-09-28 16:14 | RAD ---
TWO VIEWS LEFT HIP/FEMUR: Comparison: 09-27-18 History: Left femur fracture status post ORIF. FINDINGS/IMPRESSION: Multiple limited intraoperative fluoroscopic views of the left hip/femur were submitted for interpret ation. Patient is status post intramedullary dimitri fixation of the proximal left femur fracture. The fr acture is better aligned compared to the pre-operative radiograph. POS: [facility]
[2018-09-28 20:34] LABS: Platelet Count 151 thou/uL (130-400)
[2018-09-28] MEDS: Atorvastatin Calcium 10 MG TAB PO SCH (20:38)
[2018-09-28] MEDS: CEFAZOLIN 2 GM/50 ML-DEXTROSE 2 GM in Premix Bag 1 BAG IVPB SCH (22:38)
[2018-09-29] MEDS: Sodium Chloride 0.9% 1,000 ML IV SCH ×3 (03:26→23:40)
[2018-09-29] MEDS: Levothyroxine Sodium 75 MCG TAB PO SCH (06:01)
[2018-09-29] MEDS: CEFAZOLIN 2 GM/50 ML-DEXTROSE 2 GM in Premix Bag 1 BAG IVPB SCH ×2 (06:17→14:13)
[2018-09-29 06:55] LABS: Anion Gap 9 mmol/L (10-20); BUN (Urea Nitrogen) 15 mg/dL (9.8-20.1); Calc. Creatinine Clearance 37 mL/min (70-130); Calcium 7.1 mg/dL (7.8-10.44); Carbon Dioxide 23 mmol/L (23-31); Chloride 113 mmol/L (98-107); Estimated GFR-MDRD 47; Glucose 97 mg/dL (83-110); Magnesium 1.4 mg/dL (1.6-2.6); Phosphorus 3.3 mg/dL (2.3-4.7); Potassium 4.3 mmol/L (3.5-5.1); Sodium 141 mmol/L (136-145)
[2018-09-29] MEDS ORDERED: Magnesium Sulfate 4 GM in Sodium Chloride 0.9% 250 ML 250 ML IVPB SCH (08:00)
[2018-09-29 08:10] LABS: #Eosinphils 0.4 thou/uL (0.0-0.7); #Lymphocytes 0.9 thou/uL (1.20-3.40); #Monocytes 0.6 thou/uL (0.11-0.59); #Neutrophils 3.6 thou/uL (1.40-6.50); %Basophils 0.2 % (0.0-1.0); %Lymphocytes 16.7 % (21.0-51.0); %Monocytes 11.3 % (0.0-10.0); %Neutrophils 64.9 % (42.0-75.0); Hypochromia SLIGHT = 6-15 cells (100X) (0-5/hpf); MDiff Complete? YES; Mean Corpuscular HGB CONC 32.3 g/dL (32.0-36.0); Mean Corpuscular Hemoglobin 24.7 pg (27.0-31.0); Mean Corpuscular Volume 76.6 fL (78.0-98.0); Mean Platelet Volume 6.3 fL (7.4-10.4); Microcytosis SLIGHT = 6-15 cells (100X) (0-5/hpf); Ovalocytes SLIGHT = 2-5 cells (100X) (0-1/hpf); Platelet Count 154 thou/uL (130-400); Platelet Morphology Comment Appears Adequate; Polychromasia MODERATE = 3-4 cells (100X) (0-2/hpf); Red Blood Cell (RBC) Count 4.05 mill/uL (4.20-5.40); White Blood Cell (WBC) Count 5.6 thou/uL (4.8-10.8)
[2018-09-29] MEDS: Famotidine 20 MG TAB PO SCH (08:46)
[2018-09-29] MEDS: Aspirin 81 mg Enteric Coated Tablet PO SCH ×2 (08:46→20:15)
[2018-09-29] MEDS: Losartan 25 MG TAB PO SCH (08:46)
[2018-09-29] MEDS: Cyclobenzaprine 10 MG TAB PO PRN (08:49)
[2018-09-29] MEDS ORDERED: traMADol HCl 50 MG TAB PO SCH (10:15)
[2018-09-29] MEDS ORDERED: Ibuprofen 200 MG TAB PO SCH (10:15)
--- NOTE | 2018-09-29 12:33 | PRG ---
DATE OF SERVICE: 09/29/2018 SUBJECTIVE: The patient is currently on the surgical floor. She is hospital day 2, postoperative day 1 status post open reduction and internal fixation of a high subtrochanteric femur fracture. She tolerated her procedure well yesterday. Had no issues overnight. Her pain is controlled this morning. She tolerated her diet, and she is awaiting physical and occupational therapy. The patient will have her pain medications switched to p.o. this morning, and the case workers will work with placement. OBJECTIVE: VITAL SIGNS: Temperature is 98.0, heart rate 81, blood pressure 142/67, respirations 18, oxygen saturation is 100% on 2 L via nasal cannula. GENERAL: The patient is resting comfortably in bed. She is awake, alert, responsive, and appropriate. HEENT: Unremarkable. LUNGS: Clear to auscultation with good inspiratory and expiratory effort. HEART: Regular rate and rhythm. ABDOMEN: Soft, flat, and nontender with active bowel sounds. EXTREMITIES: Neurovascularly intact x4. Postoperative dressing is clean, dry, and intact. LABORATORY FINDINGS: White blood cell count 5.6, hemoglobin 10.0, hematocrit 31.0, platelets 154. Sodium 141, potassium 4.3, chloride 113, CO2 of 23, BUN 15, creatinine 1.12, glucose 97, magnesium 1.4, phosphorus 3.3. There are no radiographs reviewed this morning. ASSESSMENT: 1. Status post fall. 2. Status post open reduction and internal fixation of right hip fracture. PLAN: Plan will be to continue supportive care, physical and occupational therapy, and work on placement. The patient was evaluated with Dr. Jalloh this morning during rounds. Job ID: [id number]
[2018-09-29] MEDS: traMADol HCl 50 MG TAB PO SCH ×3 (12:35→23:37)
[2018-09-29] MEDS: Acetaminophen 500 MG TAB PO SCH ×3 (12:35→23:37)
[2018-09-29] MEDS ORDERED: Ibuprofen 200 MG TAB PO PRN (16:30)
[2018-09-29] MEDS: Atorvastatin Calcium 10 MG TAB PO SCH (20:15)
[2018-09-29] MEDS: Loratadine 10 MG TAB PO SCH (20:15)
--- NOTE | 2018-09-29 22:13 | OP ---
DATE OF PROCEDURE: 09/28/2018 PREOPERATIVE DIAGNOSIS: Left subtrochanteric femur fracture. POSTOPERATIVE DIAGNOSIS: Left subtrochanteric femur fracture. SURGICAL PROCEDURE: TFN nail, left femur. ANESTHESIA: General. MEDICAL CODING TECHNICIAN: None. ESTIMATED BLOOD LOSS: 300 mL. IMPLANTS: Synthes TFN system was used with a 14 x 380 mm 130-degree TFNA nail and a 95 mm hip screw. COMPLICATIONS: None. DRAINS: None. SPECIMENS: None. OUTCOME: Reduced fracture. INDICATIONS: The patient is a 73-year-old lady status post ground level fall sustaining a fracture that begins in the intertrochanteric region, but does drop below the lesser trochanter. After discussion with the patient and her family including risks and benefits, we decided to proceed with TFNA placement. Informed consent has been obtained. I believe all questions have been answered. Today, we discussed risks and benefits. Risks include, but are not limited to bleeding, infection, nerve injury, DVT, PE, hardware failure, malunion, loss of limb or life. They appear to understand and do wish to proceed. DESCRIPTION OF PROCEDURE: The patient was brought to the operating room and a time-out performed followed by induction of general anesthesia. Next, patient was positioned supine on the fracture table with the injured extremity held in longitudinal traction and slight internal rotation was resulted in good reduction of the fracture. The well leg was held in extension at the hip on a well-padded bolster to allow for AP lateral imaging of the left hip. Next, a sterile prep and drape was performed to the left lateral thigh. A small incision was made proximal to the greater trochanter. After the skin was incised, dissection was carried down bluntly such that the tip of the greater trochanter could be palpated. Next, a threaded guidewire was passed at the medial end of the greater trochanter down into the proximal femoral shaft. This was followed by drilling with the cannulated starting drill over this guidewire. Next, a ball-tipped guidewire was passed down the proximal femur across the fracture and into the distal femoral shaft, down to the level of the distal femoral metaphysis. Next, reaming was started at size 10 and continued up to a size 15, which did get good chatter at the cortex. This was then followed by insertion of 14 x 380 mm nail without difficulty. Once delivered to an appropriate depth, a second incision was made distal to the first. This was followed by insertion of the jig up to the lateral cortex of the femur and then drilling with threaded guidewire across lateral cortex of the femur up into the femoral head approaching a [id number] position. Next, measurement off this guidewire was performed followed by drilling with the step drill. The hip screw was then introduced over this guidewire and positioned appropriately. Next, the locking mechanism was engaged and backed off half turn to allow for sliding of the hip screw. The C-arm was then repositioned at the distal femur. Using freehand technique, two small stab wounds were created and distal cross locking was performed. At the completion of this, the jig was removed from the proximal femur and then final AP lateral C-arm images were obtained of the femur and its fracture. Four small incisions were then irrigated with normal saline with bulb syringe. The proximal incision was closed in layers with 0 Vicryl for fascial closure followed by 2-0 Vicryl and laine. The other incisions were closed with 2-0 Vicryl and laine. Xeroform gauze and tape dressing was applied to the thigh and then the patient was transferred to recovery room in stable condition. There were no complications. The patient tolerated the procedure well. Job ID: [id number]
[2018-09-30] MEDS: traMADol HCl 50 MG TAB PO SCH ×3 (05:17→17:42)
[2018-09-30] MEDS: Acetaminophen 500 MG TAB PO SCH ×3 (05:17→17:42)
[2018-09-30] MEDS: Levothyroxine Sodium 75 MCG TAB PO SCH (05:17)
[2018-09-30] MEDS: Famotidine 20 MG TAB PO SCH (08:46)
[2018-09-30] MEDS: Aspirin 81 mg Enteric Coated Tablet PO SCH ×2 (08:46→20:38)
[2018-09-30] MEDS: Folic Acid 1 MG TAB PO SCH (08:46)
[2018-09-30] MEDS: Losartan 25 MG TAB PO SCH (08:46)
[2018-09-30] MEDS: Sodium Chloride 0.9% 1,000 ML IV SCH (08:47)
--- NOTE | 2018-09-30 13:19 | PRG ---
DATE OF SERVICE: 09/30/2018 SUBJECTIVE: The patient is hospital day 3, postop day 2, status post ground level fall when she sustained a left subtrochanteric femur fracture. She has undergone open reduction and internal fixation of same. She tolerated this procedure well. She began working with Physical and Occupational therapy yesterday. Overnight, she had no issues. Her pain is controlled. She is tolerating a diet. PHYSICAL EXAMINATION: VITAL SIGNS: Temperature is 98.1, heart rate 85, blood pressure 124/61, respirations 20, and oxygen saturation is 93% on 2 L via nasal cannula. GENERAL: The patient is resting comfortably in bed. She is awake, alert, and oriented x3. HEENT: Unremarkable. LUNGS: Clear to auscultation with good inspiratory and expiratory effort. HEART: Regular rate and rhythm. ABDOMEN: Soft, flat, and nontender with active bowel sounds. EXTREMITIES: Neurovascularly intact x4. Postop dressing is clean, dry, and intact. DIAGNOSTIC STUDIES: There are no labs or radiographs reviewed this morning. ASSESSMENT AND PLAN: 1. Status post fall. 2. Status post open reduction and internal fixation of left hip fracture. PLAN: Plan will be to continue supportive care and await placement decision. The patient was seen this morning with Dr. Jalloh. Job ID: [id number]
[2018-09-30] MEDS: Atorvastatin Calcium 10 MG TAB PO SCH (20:38)
[2018-09-30] MEDS: Loratadine 10 MG TAB PO SCH (20:38)
[2018-09-30] MEDS: Cyclobenzaprine 10 MG TAB PO PRN (20:39)
[2018-09-30] MEDS: Calcium Carbonate 500 MG ChewTAB PO PRN (20:46)
[2018-10-01] MEDS: Acetaminophen 500 MG TAB PO SCH ×4 (00:54→18:31)
[2018-10-01] MEDS: traMADol HCl 50 MG TAB PO SCH ×4 (00:54→18:32)
[2018-10-01] MEDS: Levothyroxine Sodium 75 MCG TAB PO SCH (05:26)
[2018-10-01] MEDS: Folic Acid 1 MG TAB PO SCH (08:47)
[2018-10-01] MEDS: Losartan 25 MG TAB PO SCH (08:47)
[2018-10-01] MEDS: Famotidine 20 MG TAB PO SCH (08:47)
[2018-10-01] MEDS: Aspirin 81 mg Enteric Coated Tablet PO SCH ×2 (08:48→21:05)
[2018-10-01] MEDS: Polyethylene Glycol 3350 17 GM Packet PO SCH (10:05)
[2018-10-01 11:51] LABS: Anion Gap 11 mmol/L (10-20); BUN (Urea Nitrogen) 16 mg/dL (9.8-20.1); Calc. Creatinine Clearance 45 mL/min (70-130); Calcium 8.7 mg/dL (7.8-10.44); Carbon Dioxide 21 mmol/L (23-31); Chloride 110 mmol/L (98-107); Estimated GFR-MDRD 61; Glucose 103 mg/dL (83-110); Magnesium 1.5 mg/dL (1.6-2.6); Phosphorus 2.9 mg/dL (2.3-4.7); Potassium 4.1 mmol/L (3.5-5.1); Sodium 138 mmol/L (136-145)
[2018-10-01 12:00] LABS: #Eosinphils 0.4 thou/uL (0.0-0.7); #Lymphocytes 0.9 thou/uL (1.20-3.40); #Monocytes 0.5 thou/uL (0.11-0.59); #Neutrophils 5.3 thou/uL (1.40-6.50); %Basophils 0.3 % (0.0-1.0); %Eosinophils 5.1 % (0.0-10.0); %Lymphocytes 12.8 % (21.0-51.0); %Monocytes 6.7 % (0.0-10.0); Hemoglobin 9.5 g/dL (12.0-16.0); Hypochromia SLIGHT = 6-15 cells (100X) (0-5/hpf); MDiff Complete? YES; Mean Corpuscular HGB CONC 32.7 g/dL (32.0-36.0); Mean Corpuscular Hemoglobin 25.2 pg (27.0-31.0); Mean Platelet Volume 7.9 fL (7.4-10.4); Microcytosis SLIGHT = 6-15 cells (100X) (0-5/hpf); Platelet Count 191 thou/uL (130-400); Platelet Morphology Comment Appears Adequate; Polychromasia SLIGHT = 2-3 cells (100X) (0-2/hpf); RBC Distribution Width 24.4 % (11.5-14.5); Red Blood Cell (RBC) Count 3.77 mill/uL (4.20-5.40); Schistocytes SLIGHT = 2-5 cells (100X) (0-1/hpf); Small Platelets SLIGHT; Target Cells SLIGHT = 2-5 cells (100X) (0-1/hpf); Tear Drops SLIGHT = 2-5 cells (100X) (0-1/hpf); White Blood Cell (WBC) Count 7.1 thou/uL (4.8-10.8)
[2018-10-01] MEDS ORDERED: Magnesium Oxide 400 MG TAB PO SCH (12:15)
--- NOTE | 2018-10-01 13:16 | PRG ---
DATE OF SERVICE: 10/01/2018 SUBJECTIVE: The patient is hospital day #4, postoperative day #3, status post ground level fall, where she sustained a left proximal femur fracture. She has undergone ORIF of the same. She has tolerated the procedure well. She did require some blood products that day, but has since stabilized. She has worked with Physical and Occupational Therapy. She is currently awaiting placement. She had no issues overnight. She is tolerating a diet and her pain is controlled. OBJECTIVE: VITAL SIGNS: Temperature is 99, heart rate 77, blood pressure 116/59, respirations 16, and oxygen saturation is 92% on 1 L via nasal cannula. GENERAL: The patient is resting comfortably in a chair beside her bed. She is awake, alert, and oriented. HEENT: Unremarkable. LUNGS: Clear to auscultation with good inspiratory and expiratory effort. HEART: Regular rate and rhythm. ABDOMEN: Soft, flat, and nontender with active bowel sounds. EXTREMITIES: Neurovascularly intact x4. Postop dressing is clean, dry, and intact. LABORATORY FINDINGS: White blood cell count 7.1, hemoglobin 9.5, hematocrit 29.0, and platelets 191. Sodium 138, potassium 4.1, chloride 110, CO2 is 21, BUN 16, creatinine 0.90, glucose 103, phosphorus 2.9, magnesium 1.5. There are no radiographs reviewed this morning. ASSESSMENT AND PLAN: 1. Status post fall. 2. Status post open reduction and internal fixation of left hip fracture. 3. Hypomagnesemia. PLAN: Plan will be to continue supportive care, physical and occupational therapy. Await placement and we will replace her magnesium today. Job ID: [id number]
--- NOTE | 2018-10-01 14:15 | PQF ---
[employer] Television Director Crystal Reports Winform MicahSCHALEKLEXICELSO COLÓN PA-C [id number] SURG A- [id number] CLINICAL DOCUMENTATION IMPROVEMENT CLARIFICATION FORM: ICD-10 Updated PLEASE DO AN ADDENDUM TO THE PROGRESS NOTE WITH ANY DOCUMENTATION UPDATES OR ADDITIONS AND CARRY THROUGH TO DC SUMMARY. THANK YOU. DATE: 10/01/2018 ATTN: DR. AARON Please exercise your independent, professional judgment in responding to the clarification form. Clinical indicators are provided on the bottom of this form for your review Please check appropriate box(s): [ ] Acute respiratory failure related to surgical procedure (Post Operatively, not inherent) [ ] Acute on chronic respiratory failure related to surgical procedure [ X ] Respiratory failure not related to surgical procedure [ ] Acute [ ] Chronic [X ] Acute on chronic [ ] Other diagnosis [ ] Unable to determine For continuity of documentation, please document condition throughout progress notes and discharge summary. Thank You. CLINICAL INDICATORS - SIGNS / SYMPTOMS / LABS Sats 91-95% on 1-2 liters since ORIF on 09/28 PM. 09/27-2024 Nurse Note states: Does not wear O2 at home. 09/29 Progress Note shows pt on 2L NC on exam. 09/30 Progress Note shows 92% on 1L NC RISKS FACTORS Recent surgery-ORIF left hip Advanced age-73 y/o Chronic lung disease-Hx COPD TREATMENT: Oxygen / Monitoring oxygenation status Breathing treatments Physical Therapy Incentive Spirometry Thank you, Karla (This form is maintained as a part of the permanent medical record) 2014 [employer], [employer]. All Rights Reserved Karla Segura RN, CDIS [email or web address] [phone] [facility] CENTERMartínez
[2018-10-01] MEDS: Loratadine 10 MG TAB PO SCH (21:05)
[2018-10-01] MEDS: Magnesium Oxide 400 MG TAB PO SCH (21:05)
[2018-10-01] MEDS: Atorvastatin Calcium 10 MG TAB PO SCH (21:05)
[2018-10-01] MEDS: Senokot S 8.6-50 MG TAB PO SCH (21:05)
--- NOTE | 2018-10-01 21:26 | EKG ---
Test Reason : Blood Pressure : / mmHG Vent. Rate : 071 BPM Atrial Rate : 071 BPM P-R Int : 144 ms QRS Dur : 070 ms QT Int : 466 ms P-R-T Axes : 106 039 060 degrees QTc Int : 506 ms Normal sinus rhythm Nonspecific ST and T wave abnormality Prolonged QT Abnormal ECG Confirmed by ALICIA KOO ([id number]), visual effects editor SOCORRO HARDY ([id number]) on 10/01/2018 9:25:46 PM Referred By: Confirmed By:ALICIA KOO
[2018-10-02] MEDS: traMADol HCl 50 MG TAB PO SCH ×5 (00:20→23:22)
[2018-10-02] MEDS: Acetaminophen 500 MG TAB PO SCH ×5 (00:20→23:22)
[2018-10-02] MEDS: Levothyroxine Sodium 75 MCG TAB PO SCH (05:15)
[2018-10-02 06:08] LABS: #Eosinphils 0.3 thou/uL (0.0-0.7); #Lymphocytes 0.9 thou/uL (1.20-3.40); #Monocytes 0.4 thou/uL (0.11-0.59); #Neutrophils 4.4 thou/uL (1.40-6.50); %Basophils 0.3 % (0.0-1.0); %Eosinophils 4.2 % (0.0-10.0); %Lymphocytes 15.4 % (21.0-51.0); %Monocytes 7.3 % (0.0-10.0); %Neutrophils 72.7 % (42.0-75.0); Hemoglobin 8.7 g/dL (12.0-16.0); Mean Corpuscular Hemoglobin 24.9 pg (27.0-31.0); Mean Corpuscular Volume 75.5 fL (78.0-98.0); Mean Platelet Volume 5.8 fL (7.4-10.4); Platelet Count 198 thou/uL (130-400); RBC Distribution Width 24.5 % (11.5-14.5); White Blood Cell (WBC) Count 6.1 thou/uL (4.8-10.8)
[2018-10-02 06:30] LABS: Anion Gap 11 mmol/L (10-20); BUN (Urea Nitrogen) 15 mg/dL (9.8-20.1); Calc. Creatinine Clearance 50 mL/min (70-130); Calcium 8.5 mg/dL (7.8-10.44); Carbon Dioxide 23 mmol/L (23-31); Chloride 107 mmol/L (98-107); Estimated GFR-MDRD 69; Glucose 80 mg/dL (83-110); Magnesium 1.3 mg/dL (1.6-2.6); Phosphorus 2.8 mg/dL (2.3-4.7); Potassium 4.1 mmol/L (3.5-5.1); Sodium 137 mmol/L (136-145)
[2018-10-02] MEDS: Polyethylene Glycol 3350 17 GM Packet PO SCH (09:22)
[2018-10-02] MEDS: Senokot S 8.6-50 MG TAB PO SCH ×2 (09:23→19:53)
[2018-10-02] MEDS: Famotidine 20 MG TAB PO SCH (09:23)
[2018-10-02] MEDS: Magnesium Oxide 400 MG TAB PO SCH ×2 (09:25→19:52)
[2018-10-02] MEDS: Aspirin 81 mg Enteric Coated Tablet PO SCH ×2 (09:25→19:53)
[2018-10-02] MEDS: Folic Acid 1 MG TAB PO SCH (09:25)
[2018-10-02] MEDS: Losartan 25 MG TAB PO SCH (10:37)
--- NOTE | 2018-10-02 13:10 | PRG ---
DATE OF SERVICE: 10/02/2018 SUBJECTIVE: The patient remains on the surgical floor. She is hospital day five, postop day four, status post ground level fall when she sustained a left proximal femur fracture. She has undergone ORIF of the same and tolerated the procedure well. The patient has a known chronic anemia and has received blood products. Her hemoglobin is essentially stabilized to where she normally stays in the 8 to 10 range, looking back for the last years or so. Yesterday, she began working with Physical and Occupational Therapy. She was only able do a short amount of work with them for the first time being out of bed. PHYSICAL EXAMINATION: VITAL SIGNS: Temperature is 98.6, heart rate 89, blood pressure 121/71, respirations 16, oxygen saturation 92% on room air. GENERAL: The patient is resting comfortably in bed. She had some nausea yesterday that has completely resolved and she was able to consume her breakfast without difficulty this morning. HEENT: Unremarkable. LUNGS: Clear to auscultation with good inspiratory and expiratory effort. HEART: Regular rate and rhythm. ABDOMEN: Soft, flat, nontender with active bowel sounds. EXTREMITIES: Neurovascularly intact x4. Postop dressing remains clean, dry, and intact. LABORATORY FINDINGS: White blood cell count 6.1, hemoglobin 8.7, hematocrit 26.4, platelets 198. Sodium 137, potassium 4.1, chloride 107, CO2 of 23, BUN 15, creatinine 0.81, glucose 80, magnesium 1.3, phosphorus 2.8. ASSESSMENT: 1. Status post fall. 2. Status post open reduction and internal fixation of left hip fracture. 3. Hypomagnesemia. 4. Chronic anemia with acute blood loss anemia, stable. PLAN: Plan will be to continue supportive care, physical and occupational therapy. Replace her magnesium and await placement decision. Job ID: [id number]
[2018-10-02] MEDS: Calcium Carbonate 500 MG ChewTAB PO PRN (15:21)
[2018-10-02] MEDS: Atorvastatin Calcium 10 MG TAB PO SCH (19:52)
[2018-10-02] MEDS: Loratadine 10 MG TAB PO SCH (19:53)
[2018-10-03] MEDS: Levothyroxine Sodium 75 MCG TAB PO SCH (05:07)
[2018-10-03] MEDS: Acetaminophen 500 MG TAB PO SCH ×4 (05:07→23:39)
[2018-10-03] MEDS: traMADol HCl 50 MG TAB PO SCH ×4 (05:07→23:38)
[2018-10-03] MEDS: Losartan 25 MG TAB PO SCH (08:44)
[2018-10-03] MEDS: Senokot S 8.6-50 MG TAB PO SCH ×2 (08:45→20:14)
[2018-10-03] MEDS: Magnesium Oxide 400 MG TAB PO SCH ×2 (08:45→20:15)
[2018-10-03] MEDS: Aspirin 81 mg Enteric Coated Tablet PO SCH ×2 (08:45→20:15)
[2018-10-03] MEDS: Polyethylene Glycol 3350 17 GM Packet PO SCH (08:46)
[2018-10-03] MEDS: Folic Acid 1 MG TAB PO SCH (09:42)
--- NOTE | 2018-10-03 13:22 | PRG ---
DATE OF SERVICE: 10/03/2018 SUBJECTIVE: Ms. Root is a 73-year-old woman, who is postoperative day #5, status post TFN, left femur fracture. She is awake and alert. Reports adequate pain control. She is tolerating general diet. She is having normal urinary function. She has not had any bowel movement in the last 3 days. OBJECTIVE: VITAL SIGNS: Today include blood pressure 139/80, pulse 71, respiratory rate 22, temperature 98.7 degrees Fahrenheit, and oxygen saturation 93% on 1 L by nasal cannula oxygen. HEART: Reveals regular rate and rhythm. No murmurs or gallops auscultated. LUNGS: Clear to auscultation bilaterally. Her breathing is regular and nonlabored. ABDOMEN: Soft, nontender, and nondistended. EXTREMITIES: Reveals 2+ radial and pedal pulses bilaterally. She has no ankle edema present. NEUROLOGIC: Reveals no focal deficits present. LABORATORY FINDINGS: Includes a CBC with 6100 white blood cells, hemoglobin and hematocrit are stable at 8.7 and 26.4 respectively. Platelet count is 198,000. IMPRESSION: 1. Postop day #5, status post left TFN femur fracture. 2. Stable chronic anemia and history of thalassemia. PLAN: Continue with physical and occupational therapy. The patient has been evaluated by PM and R and will be transferred to inpatient rehabilitation once bed availability and insurance authorization had been secured. Above findings and plan discussed with the patient, who indicates understanding of information given. I have answered her questions. Job ID: [id number]
[2018-10-03] MEDS: Atorvastatin Calcium 10 MG TAB PO SCH (20:15)
[2018-10-03] MEDS: Loratadine 10 MG TAB PO SCH (20:15)
[2018-10-04] MEDS: traMADol HCl 50 MG TAB PO SCH ×2 (05:22→12:06)
[2018-10-04] MEDS: Levothyroxine Sodium 75 MCG TAB PO SCH (05:22)
[2018-10-04] MEDS: Acetaminophen 500 MG TAB PO SCH ×4 (05:22→23:59)
[2018-10-04] MEDS: Folic Acid 1 MG TAB PO SCH (08:58)
[2018-10-04] MEDS: Aspirin 81 mg Enteric Coated Tablet PO SCH ×2 (08:59→20:21)
[2018-10-04] MEDS: Losartan 25 MG TAB PO SCH (08:59)
[2018-10-04] MEDS: Magnesium Oxide 400 MG TAB PO SCH ×2 (09:00→20:21)
[2018-10-04] MEDS: Polyethylene Glycol 3350 17 GM Packet PO SCH (09:00)
[2018-10-04] MEDS: Senokot S 8.6-50 MG TAB PO SCH ×2 (09:00→20:21)
[2018-10-04] MEDS ORDERED: Magnesium Citrate 300 ML BOT PO SCH (13:00)
--- NOTE | 2018-10-04 14:25 | PRG ---
DATE OF SERVICE: 10/04/2018 SUBJECTIVE: This is a 73-year-old female, postop day 6, status post TFN to left femur fracture. The patient reports nausea with some vomiting this morning while having a bowel movement. Otherwise, she states her pain has been well controlled. She also reports that she has been working physical therapy. She is currently awaiting insurance approval for inpatient rehab. OBJECTIVE: VITAL SIGNS: Temperature 98.6, pulse 76, respirations 16, O2 saturation 94% on 1 L nasal cannula, . GENERAL: Elderly appearing female, in no acute distress, resting in bed. PULMONARY: Normal work of breathing, symmetric rise, IS 750. CARDIOVASCULAR: Regular rate and rhythm. No obvious murmurs, rubs, or gallops. GI: Abdomen is soft, nontender, nondistended. MUSCULOSKELETAL: Moves all extremities x4. NEUROLOGIC: No focal deficit is noted. LABORATORY FINDINGS: No new laboratory findings. ASSESSMENT: 1. Status post mechanical fall. 2. Left femur fracture, postop day 6. 3. Chronic obstructive pulmonary disease. 4. Chronic anemia, stable. 5. Acute kidney injury, improved. PLAN: Discussed with Case Management for eventual disposition and follow up insurance approval. I have discussed in detail the importance of incentive spirometry and pulmonary toileting with the patient. Continue PT and OT as ordered. Continue pain management as ordered. Suspect nausea secondary to constipation/ ileus. If does not resolve after bowel movement, we will investigate further. Plan of care was discussed with the patient and all questions were answered at the time of this dictation. The patient was discussed with Trauma attending. Job ID: [id number] MTDD
[2018-10-04] MEDS ORDERED: Polyethylene Glycol 3350 17 GM Packet PO PRN (15:27)
[2018-10-04] MEDS: Atorvastatin Calcium 10 MG TAB PO SCH (20:20)
[2018-10-04] MEDS: Loratadine 10 MG TAB PO SCH (20:20)
[2018-10-05] MEDS: traMADol HCl 50 MG TAB PO PRN ×2 (03:37→09:47)
[2018-10-05] MEDS: Levothyroxine Sodium 75 MCG TAB PO SCH (05:14)
[2018-10-05] MEDS: Acetaminophen 500 MG TAB PO SCH ×3 (05:14→17:24)
[2018-10-05] MEDS ORDERED: Scopolamine 1.5 mg/72 hour Patch TD SCH (09:00)
[2018-10-05 09:37] LABS: #Eosinphils 0.2 thou/uL (0.0-0.7); #Lymphocytes 0.9 thou/uL (1.20-3.40); #Monocytes 0.4 thou/uL (0.11-0.59); #Neutrophils 4.4 thou/uL (1.40-6.50); %Basophils 0.4 % (0.0-1.0); %Eosinophils 3.3 % (0.0-10.0); %Lymphocytes 15.6 % (21.0-51.0); %Monocytes 7.3 % (0.0-10.0); %Neutrophils 73.4 % (42.0-75.0); Hemoglobin 9.8 g/dL (12.0-16.0); Mean Corpuscular HGB CONC 32.4 g/dL (32.0-36.0); Mean Corpuscular Hemoglobin 24.3 pg (27.0-31.0); Mean Platelet Volume 5.9 fL (7.4-10.4); Platelet Count 301 thou/uL (130-400); RBC Distribution Width 25.3 % (11.5-14.5); Red Blood Cell (RBC) Count 4.02 mill/uL (4.20-5.40)
[2018-10-05] MEDS: Folic Acid 1 MG TAB PO SCH (09:39)
[2018-10-05 09:41] LABS: Anion Gap 14 mmol/L (10-20); BUN (Urea Nitrogen) 16 mg/dL (9.8-20.1); Calc. Creatinine Clearance 50 mL/min (70-130); Calcium 8.9 mg/dL (7.8-10.44); Carbon Dioxide 26 mmol/L (23-31); Chloride 102 mmol/L (98-107); Estimated GFR-MDRD 68; Glucose 118 mg/dL (83-110); Phosphorus 2.8 mg/dL (2.3-4.7); Potassium 3.8 mmol/L (3.5-5.1); Sodium 138 mmol/L (136-145)
[2018-10-05] MEDS: Senokot S 8.6-50 MG TAB PO SCH (09:41)
[2018-10-05] MEDS: Aspirin 81 mg Enteric Coated Tablet PO SCH (09:41)
[2018-10-05] MEDS: Magnesium Oxide 400 MG TAB PO SCH (09:42)
[2018-10-05] MEDS: Losartan 25 MG TAB PO SCH (09:42)
[2018-10-05 10:35] LABS: Anisocytosis MODERATE=16-30 cells (100X) (0-5/hpf); Hypochromia MODERATE=16-30 cells (100X) (0-5/hpf); MDiff Complete? YES; Ovalocytes SLIGHT = 2-5 cells (100X) (0-1/hpf); Polychromasia MODERATE = 3-4 cells (100X) (0-2/hpf); Tear Drops SLIGHT = 2-5 cells (100X) (0-1/hpf)
--- NOTE | 2018-10-05 14:28 | PRG ---
DATE OF SERVICE: 10/05/2018 SUBJECTIVE: The patient is a 73-year-old female, postop day 7, status post TFN to the left femur. Yesterday, the patient reported nausea and vomiting as well as multiple loose stools. This morning, the patient also complains of nausea, but no vomiting. The patient reports nausea is worse with meals, but otherwise, reports pain is well controlled and is voiding without issues. She has been working with physical therapy and is waiting to be placed at a SNF facility. OBJECTIVE: VITAL SIGNS: Most recent vital signs are temperature 97.3, pulse 76 , respirations 20, oxygen saturation 96% on 1 L nasal cannula, and blood pressure is 130/70. GENERAL: She is an elderly female, with no signs of acute distress. She is resting in bed. PULMONARY: Normal work of breathing. Equal chest rise and fall. Breathing about 18 times a minute. Clear breath sounds. CARDIOVASCULAR: Regular rate and rhythm. No obvious murmurs, gallops, or rubs. GI: Abdomen is soft, nontender, and nondistended. MUSCULOSKELETAL: Moves all extremities without limitation. Sensation intact. Pulses intact. NEUROLOGIC: GCS is 15. LABORATORY FINDINGS: There are no new laboratory findings. ASSESSMENT: 1. Status post mechanical fall from standing on aspirin. 2. Left femur fracture status post nail, postop day 7. 3. Chronic obstructive pulmonary disease. 4. Hypertension. 5. Hypothyroidism. 6. Osteoporosis. 7. Chronic anemia. 8. Anxiety. 9. Acute kidney injury, resolved. PLAN: We will complete labs studies. If the patient has another episode of C. diff. We will continue medications as prescribed for nausea as they are working well and we will re-evaluate the patient this evening for possibel discharge to SNF facility. Continue PT and OT. Continue incentive spirometry. Plan of care was discussed with the patient and all questions were answered at the time of the visit. The patient was discussed with the Trauma attending. Job ID: [id number] [facility]
[2018-10-05 16:33] VITALS: BP 158/74; TEMP 98.3
--- NOTE | 2018-10-06 05:16 | DIS ---
DATE OF ADMISSION: 09/27/2018 DATE OF DISCHARGE: 10/05/2018 ADMITTING DIAGNOSES: Left femur fracture and acute kidney injury. DISCHARGE DIAGNOSES: Left femur fracture, history of chronic obstructive pulmonary disease, hypothyroidism, hypertension, osteoporosis, chronic anemia, and anxiety. CONSULTING PHYSICIAN: Jasivr Bryan MD. PROCEDURES: She received a TFN nail of the left femur on September 28. HOSPITAL COURSE: Ms. Candace Root is a 73-year-old female patient who presented to the emergency department after a mechanical fall off a porch while on aspirin with no loss of consciousness. Her emergency department workup demonstrated that she had a left femur fracture as well as she did develop an acute kidney injury. Dr. Jasvir Bryan was consulted as he was the orthopedic surgeon on-call. He took the patient to the operating room on September 28 and performed a TFN nail to the left femur. The patient then had a fairly uncomplicated hospital course thereafter where she participated in physical therapy and tolerated a diet until she had 3 to 4 episodes of emesis and loose stools on October 04. This vomiting was attributed to constipation. The diarrhea was contributed to aggressive bowel movement regimen. Physical Therapy initially recommended sending the patient to an acute rehab. Acute rehab was contacted, but denied the patient. The patient then was accepted to a [facility]iary facility. She was discharged on October 05, 2018 to a penitentiary facility after her nausea, vomiting, and acute kidney injury had resolved on October 05. DISCHARGE DISPOSITION: longterm facility. DISCHARGE CONDITION: Satisfactory. PHYSICAL EXAMINATION: VITAL SIGNS: Temperature was 98.3, pulse 73, respirations 18, oxygen saturation 97 on 1 L nasal cannula with a blood pressure of 158/74. GENERAL: She is a well-appearing elderly female with no signs of distress. She is resting in bed. PULMONARY: Normal work of breathing. Equal chest rise and fall. Breathing about 18 times a minute. Clear breath sounds bilaterally. Cardiovascular: Regular rate and rhythm. No obvious murmurs, gallops, or rubs. GI: Abdomen is soft, nontender, and nondistended. MUSCULOSKELETAL: Moves all extremities without limitations. Sensation intact. Pulses intact. NEUROLOGIC: GCS is 15. Normal sensation throughout extremities. DISCHARGE INSTRUCTIONS: She was discharged to a skill nursing facility, weightbearing as tolerated in all 4 extremities. She was on a regular diet with no restrictions. She was also given Ensure 3 times a day. She is to receive occupational therapy and physical therapy. She does require oxygen via nasal cannula. DISCHARGE MEDICATIONS: Tylenol, aspirin, Tums, folic acid, ibuprofen, loratadine, magnesium oxide, Zofran, losartan, Zoloft, Simvastatin, Nexium, fluticasone, DuoNeb, Synthroid. FOLLOWUP APPOINTMENTS: She is to follow up with Dr. Khoi Garvey, who is her primary care physician as needed. She can follow up with Dr. Mazin Jalloh as needed and she is to follow up with Dr. Jasvir Bryan, who has orthopedic surgery in 14 days. Job ID: [id number]
== END 2018-10-05 18:18 | DRG 480 ==
LOC: ERS 15:14 → ERHOLD 17:20 → SURG A 20:56
PROVIDERS: ADMIT Surgery; ATTEND Surgery
PROC: 0QS734Z Reposition Left Upper Femur with Internal Fixation Device, Percutaneous Approach (ICD-10-PCS; principal; 2018-09-28)
DX: S72.22XA Displaced subtrochanteric fracture of left femur, initial encounter for closed fracture (principal); J96.20 Acute and chronic respiratory failure, unspecified whether with hypoxia or hypercapnia; N17.9 Acute kidney failure, unspecified; D62 Acute posthemorrhagic anemia; J44.9 Chronic obstructive pulmonary disease, unspecified; E03.9 Hypothyroidism, unspecified; I10 Essential (primary) hypertension; M81.0 Age-related osteoporosis without current pathological fracture; D56.9 Thalassemia, unspecified; F41.9 Anxiety disorder, unspecified; E83.42 Hypomagnesemia; Z87.891 Personal history of nicotine dependence; Z79.82 Long term (current) use of aspirin; Z79.899 Other long term (current) drug therapy; W17.89XA Other fall from one level to another, initial encounter; Y92.018 Other place in single-family (private) house as the place of occurrence of the external cause
CPT/HCPCS: 36415; 36430; 51702; 71045; 76000; 80048; 80053; 81003; 81015; 83735; 84100; 85025; 86850; 86900; 86901; 93005; 94640; 96360; 96361; 96372; 99213; C1713; C1769; G0390; G0463; J0131; J1885; J2001; J2270; J2405; J2704; J3010; J3475; J7050; J7620; P9016; P9035; Q0162

== ENCOUNTER 2018-11-12 11:11 | Emergency (ER) | payer MEDICARE ==
[~2018-11-12 11:11] MED LIST: Iopamidol 370 76% 75 ML VIAL FS ONE
[2018-11-12 11:47] LABS: Hemoglobin 10.5 g/dL (12.0-16.0); Mean Corpuscular HGB CONC 30.9 g/dL (32.0-36.0); Mean Corpuscular Hemoglobin 21.5 pg (27.0-31.0); Mean Corpuscular Volume 69.5 fL (78.0-98.0); Mean Platelet Volume 7.6 fL (7.4-10.4); Platelet Count 132 thou/uL (130-400); RBC Distribution Width 20.3 % (11.5-14.5); Red Blood Cell (RBC) Count 4.91 mill/uL (4.20-5.40); White Blood Cell (WBC) Count 9.5 thou/uL (4.8-10.8)
[2018-11-12 11:56] LABS: Anisocytosis SLIGHT = 6-15 cells (100X) (0-5/hpf); Band 3 % (5-11); Hypochromia SLIGHT = 6-15 cells (100X) (0-5/hpf); Lymphocytes 10 % (21-51); MDiff Complete? YES; Microcytosis SLIGHT = 6-15 cells (100X) (0-5/hpf); Monocytes 5 % (0-10); Neutrophil 81 % (42-75); Ovalocytes SLIGHT = 2-5 cells (100X) (0-1/hpf); Platelet Morphology Comment Appears Adequate; Polychromasia SLIGHT = 2-3 cells (100X) (0-2/hpf)
[2018-11-12 11:57] LABS: ALT (SGPT) 26 U/L (8-55); AST (SGOT) 36 U/L (5-34); Alkaline Phosphatase 180 U/L (40-150); Anion Gap 15 mmol/L (10-20); BUN (Urea Nitrogen) 19 mg/dL (9.8-20.1); CK (CPK) 65 U/L (29-168); Calc. Creatinine Clearance 0 mL/min (70-130); Calcium 9.1 mg/dL (7.8-10.44); Carbon Dioxide 19 mmol/L (23-31); Chloride 109 mmol/L (98-107); Estimated GFR-MDRD 50; Globulin 3.3 g/dL (2.4-3.5); Glucose 120 mg/dL (83-110); Magnesium 1.5 mg/dL (1.6-2.6); Potassium 3.9 mmol/L (3.5-5.1); Protein, Total 7.3 g/dL (6.0-8.3); Sodium 139 mmol/L (136-145)
[2018-11-12] MEDS ORDERED: Acetaminophen 500 MG TAB ONE (12:30)
--- NOTE | 2018-11-12 13:18 | RAD ---
PORTABLE UPRIGHT FRONTAL CHEST RADIOGRAPH: DATE: 11/12/2018. COMPARISON: 09/27/2018. HISTORY: Short of breath with cough and weakness. FINDINGS: There is increased linear interstitial density with pulmonary hyperinflation suggesting air trapping. Findings suggest COPD in the proper clinical setting. There is atherosclerotic calcification in th e aortic arch. Old stable left-sided rib fractures are seen. There is no pneumothorax, pleural flui d, lobar consolidation, or alveolar edema. IMPRESSION: Stable chronic findings as described above. No focal consolidation or evidence for alveolar edema. POS: ARI
[2018-11-12] MEDS ORDERED: predniSONE 20 MG TAB ONE (14:06)
[2018-11-12] MEDS ORDERED: Azithromycin 250 MG TAB ONE (14:06)
--- NOTE | 2018-11-12 15:42 | CT ---
CT ANGIOGRAM OF THE CHEST 11/12/18 HISTORY: Cough and weakness. COMPARISON: None. TECHNIQUE: CT angiogram of the chest is performed in the axial plane. Three dimensional reformatted images are s ubmitted for interpretation. FINDINGS: No mediastinal mass, lymphadenopathy or hematoma. There is a slightly prominent right suprahilar lymp h node measuring 0.6 x 1.2 cm and a slightly prominent right infrahilar lymph node measuring 1.3 x 1. 1 cm. Heart size is within normal limits. No pericardial effusion. The thoracic aorta and upper abdom inal aorta do demonstrate some atherosclerotic change. There is no aneurysm or dissection. No periaor tic fat stranding. The visualized upper solid organs are unremarkable. Mild atrophy of the left kidney. Extensive emphysematous changes throughout the lung parenchyma. Degree of emphysematous change is sim ilar to the previous study. There is an irregular opacity in the right lower lobe, measuring 3.6 x 1. 2 cm. A focal infiltrate is suspected. This opacity was not noted on a CT of March 07. There are no ly tic or blastic lesions in the osseous structures. Stable compression deformities of the distal thoracic spine. Adequate contrast opacification of the pulmonary arterial system to the level of the segmental arteri es. No filling defect to suggest a thromboembolism. IMPRESSION: 1. No evidence of pulmonary artery embolism to the level of the segmental arteries. 2. Slightly prominent right hilar lymph nodes. 3. Extensive and essentially stable emphysematous change. Interval development of a focal opacit y slightly irregular marginated in the superior segment of the right lower lobe. Opacity is not appre ciated on previous chest CT. Focal infiltrate is suspected. After medical management, followup imagin g can be performed. As a conservative measure, PET imaging can also be performed to exclude a possibl e neoplastic process after appropriate medical management. Code LN POS: JESSICA
== END 2018-11-12 14:20 | disposition home or self-care (01) ==
LOC: SCSER 11:11
DX: J44.1 Chronic obstructive pulmonary disease with (acute) exacerbation (principal); R53.1 Weakness; I10 Essential (primary) hypertension; E03.9 Hypothyroidism, unspecified; M81.0 Age-related osteoporosis without current pathological fracture; F41.9 Anxiety disorder, unspecified; Z87.891 Personal history of nicotine dependence; Z79.82 Long term (current) use of aspirin; Z79.899 Other long term (current) drug therapy
CPT/HCPCS: 71045; 71275; 80053; 82550; 83605; 83735; 83880; 84443; 84484; 85025; 93005; 94760; 96360; J7620

== ENCOUNTER 2018-12-27 15:46 | Outpatient (CLI) | payer MEDICARE ==
--- NOTE | 2018-12-27 16:19 | MMO ---
Bilateral MAMMO Bilat Screen [facility]. CLINICAL HISTORY: Patient is 73 years old and is seen for screening. The patient has the following family history of breast cancer: paternal aunt. The patient has no personal history of cancer. VIEWS: The views performed were: bilateral craniocaudal with tomosynthesis and bilateral mediolateral oblique with tomosynthesis. FILMS COMPARED: The present examination has been compared to prior imaging studies performed at [facility] on 07/08/2006 and 10/10/2010. MAMMOGRAM FINDINGS: There are scattered fibroglandular densities. There are no suspicious masses, suspicious calcifications, or new areas of architectural distortion. IMPRESSION: THERE IS NO MAMMOGRAPHIC EVIDENCE OF MALIGNANCY. A ROUTINE FOLLOW-UP MAMMOGRAM IN 1 YEAR IS RECOMMENDED. THE RESULTS OF THIS EXAM WERE SENT TO THE PATIENT. ACR BI-RADS Category 1 - Negative MAMMOGRAPHY NOTE: 1. A negative mammogram report should not delay a biopsy if a dominant of clinically suspicious mass is present. 2. Approximately 10% to 15% of breast cancers are not detected by mammography. 3. Adenosis and dense breasts may obscure an underlying neoplasm.
== END 2018-12-27 15:47 | disposition home or self-care (01) ==
LOC: BICMAMMO 15:46
PROVIDERS: ATTEND Family Medicine
DX: Z12.31 Encounter for screening mammogram for malignant neoplasm of breast (principal); Z80.3 Family history of malignant neoplasm of breast
CPT/HCPCS: 77063; 77067

== ENCOUNTER 2020-03-25 11:21 | Outpatient (CLI) | payer MEDICARE ==
--- NOTE | 2020-03-25 11:49 | RAD ---
Exam: One view pelvis COMPARISON: 11/19/2015 HISTORY: Pain, right hip FINDINGS: Previous left obturator ring and left hip fractures with internal fixation are noted. No acute bony pelvic fracture. Contour of the right femoral head is maintained in the hip joint space s preserved. IMPRESSION: No acute abnormality in the right hip.
--- NOTE | 2020-03-25 11:53 | RAD ---
Exam: XR Hip Rt 2-3 View HISTORY: Right hip pain. COMPARISON: None FINDINGS: There is incomplete visualization of a fracture involving the left inferior pubic ramus. However, thi s was seen prior views left hip on 12/28/2018. No acute fracture, dislocation, or other acute osseous abnormality is identified. IMPRESSION: No acute osseous abnormality right hip is identified.
== END 2020-03-25 11:22 | disposition home or self-care (01) ==
LOC: BICRAD 11:21
PROVIDERS: ATTEND Family Medicine
DX: M25.551 Pain in right hip (principal)
CPT/HCPCS: 72170

== ENCOUNTER 2020-05-23 02:39 | Inpatient (IN) | payer MEDICARE, OTHER ==
[2020-05-23] MEDS ORDERED: Ondansetron PF 4 MG/2 ML Vial ONE (03:42)
[2020-05-23 03:49] LABS: ALT (SGPT) 167 U/L (8-55); AST (SGOT) 372 U/L (5-34); Alkaline Phosphatase 147 U/L (40-110); Anion Gap 17 mmol/L (10-20); BUN (Urea Nitrogen) 14 mg/dL (9.8-20.1); Calc. Creatinine Clearance 0 mL/min (70-130); Calcium 8.6 mg/dL (7.8-10.44); Carbon Dioxide 18 mmol/L (23-31); Chloride 107 mmol/L (98-107); Estimated GFR-MDRD 49; Globulin 2.9 g/dL (2.4-3.5); Glucose 139 mg/dL (83-110); Lipase 25 U/L (8-78); Potassium 3.9 mmol/L (3.5-5.1); Protein, Total 6.9 g/dL (6.0-8.3); Sodium 138 mmol/L (136-145)
[2020-05-23] MEDS ORDERED: Piperacillin/Tazobactam 3.375 GM VIAL ONE (04:04)
[2020-05-23] MEDS ORDERED: Ondansetron PF 4 MG/2 ML Vial IVP PRN (04:32)
[2020-05-23 04:37] LABS: Hemoglobin 9.4 g/dL (12.0-16.0); Mean Corpuscular HGB CONC 31.6 g/dL (32.0-36.0); Mean Corpuscular Hemoglobin 19.5 pg (27.0-31.0); Mean Corpuscular Volume 61.7 fL (78.0-98.0); RBC Distribution Width 16.2 % (11.5-14.5); Red Blood Cell (RBC) Count 4.83 mill/uL (4.20-5.40)
[2020-05-23] MEDS ORDERED: Morphine 2 MG/ML VIAL SLOW IVP PRN (04:38)
[2020-05-23 04:54] LABS: #Eosinphils 0.1 thou/uL (0.0-0.7); #Lymphocytes 0.8 thou/uL (1.20-3.40); #Monocytes 0.6 thou/uL (0.11-0.59); #Neutrophils 7.6 thou/uL (1.40-6.50); %Basophils 0.1 % (0.0-1.0); %Eosinophils 0.8 % (0.0-10.0); %Lymphocytes 8.3 % (21.0-51.0); %Monocytes 7.1 % (0.0-10.0); %Neutrophils 83.7 % (42.0-75.0); Anisocytosis SLIGHT = 6-15 cells (100X) (0-5/hpf); Basophilic Stippling SLIGHT = 1-2 cells (100X) (None Seen); MDiff Complete? YES; Mean Platelet Volume 8.3 fL (7.4-10.4); Microcytosis MODERATE=15-30 cells (100X) (0-5/hpf); Platelet Count 180 thou/uL (130-400); Platelet Morphology Comment Appears Adequate; Reflex for Review?? YES; Tear Drops SLIGHT = 2-5 cells (100X) (0-1/hpf); White Blood Cell (WBC) Count 9.1 thou/uL (4.8-10.8)
--- NOTE | 2020-05-23 04:57 | PDOC.EVN ---
Event Note - Event Note Event Note: [id number] HP
--- NOTE | 2020-05-23 05:41 | HP ---
CHIEF COMPLAINT: Abdominal pain and vomiting. HISTORY OF PRESENT ILLNESS: Ms. Root is a 75-year-old female with past medical history of hypothyroidism, hypertension, COPD, hyperlipidemia, and among others, presents to the emergency room with right upper quadrant abdominal pain associated with vomiting since 5 p.m. yesterday. Denies fever, chills, or urinary symptoms. Denies chest pain. No aggravating or relieving factors. The workup in the emergency room including the ultrasound showed cholecystitis. Lab work, the patient was found to have elevated bilirubin of 4.0, elevated alkaline phosphatase, AST, and ALT. Surgeon was consulted, we were advised to admit the patient under Medical team and consult GI. PAST MEDICAL HISTORY: 1. Chronic obstructive pulmonary disease. 2. Hypothyroidism. 3. Hypertension. 4. Hyperlipidemia. PAST SURGICAL HISTORY: 1. Hysterectomy. 2. Left hip surgery. PAST PSYCHIATRIC HISTORY: Anxiety. SOCIAL HISTORY: The patient is a former smoker. She used to smoke for 50 years. Denies drug use. Denies alcohol use. FAMILY HISTORY: Reviewed and noncontributory. HOME MEDICATIONS: Please see home medication reconciliation form for updated medications. ALLERGIES: NO KNOWN ALLERGIES. REVIEW OF SYSTEMS: Review of 14 systems negative except what is mentioned in history of present illness. PHYSICAL EXAMINATION: GENERAL: The patient is awake, alert, in moderate distress. VITAL SIGNS: Blood pressure is 140/85, pulse is 78, respiratory rate is 20, temperature is 98.1, and oxygen saturation is 94% on room air. HEAD: Normocephalic and atraumatic. NECK: Supple. No JVD. CHEST: Fair bilateral air entry. HEART: S1 and S2. Regular. ABDOMEN: Soft with epigastric and right upper quadrant tenderness. Bowel sounds present. NEUROLOGIC: Awake, alert, and oriented x3. No focal deficits. PSYCH: Unable to assess. EXTREMITIES: No clubbing or cyanosis. LABORATORY DATA: As mentioned above in history of present illness. IMAGING STUDIES: As mentioned above in history present illness. ASSESSMENT: 1. Acute cholecystitis. 2. Choledocholithiasis ?? the patient's bilirubin is elevated. 3. Abdominal pain. 4. Vomiting. 5. Chronic obstructive pulmonary disease. 6. Hypertension. 7. Hyperlipidemia. 8. Hypothyroidism. PLAN: 1. Admit. 2. Keep n.p.o. 3. IV fluids. 4. IV antibiotic. 5. Pain management. 6. Surgeon consulted for evaluation and further management. 7. GI consulted for evaluation and further management. 8. Reconcile home medications. 9. DVT prophylaxis as appropriate. 10. Expected length of stay, 2 midnights or more. Job ID: [id number]
[2020-05-23] MEDS: Sodium Chloride 0.9% 1,000 ML IV SCH ×3 (05:50→18:31)
[2020-05-23 06:18] VITALS: BMI 23.2
--- NOTE | 2020-05-23 07:54 | ULT ---
PRELIMINARY REPORT/[facility]/EMERGENCY AFTER HOURS PROCEDURE Receipt of this report by the clinical staff was confirmed with ROLO WHEELER MD by Nida Valencia on May 23, 2020 03:53:00 CDT. Addendum electronically signed by Nida Valencia on May 23, 2020 3:54:01 AM CDT EXAM: US Abdomen Limited, Right Upper Quadrant. CLINICAL HISTORY: Epigastric pain that radiates to back, n/v TECHNIQUE: Real-time ultrasound of the right upper quadrant with image documentation. COMPARISON: None provided. FINDINGS: LIVER: Measures 16.8 cm and demonstrates fatty infiltration. GALLBLADDER: Cholelithiasis is noted. No wall thickening. Pericholecystic fluid is identified and the patient dem onstrated a positive sonographic Jimenez's sign. COMMON BILE DUCT: Mildly dilated at 7.2 mm PANCREAS: Mostly obscured by overlying bowel gas. RIGHT KIDNEY: Unremarkable. No hydronephrosis. Measures 9 cm IMPRESSION: The findings are consistent with acute cholecystitis ELECTRONICALLY SIGNED BY: Mookie Mancini MD May 23, 2020 3:51:30 AM CDT This report is intended for review by the ordering physician only, in accordance of law. If you recei ve this report in error, please call [facility] at [phone]. FINAL REPORT Final report by Dr. Guallpa Emergency after-hours study ULTRASOUND ABDOMEN LIMITED: (RIGHT UPPER QUADRANT) DATE: 05/23/2020 3:30 AM HISTORY: 70-year-old female with right upper quadrant abdominal pain and nausea with vomiting FINDINGS: Gallbladder:Mildly distended. Cluster of numerous tiny mobile calculi, a few millimeters in size each . Thin pericholecystic fluid or edema layer. Reportedly positive sonographic Jimenez's sign. Common duct: 7 mm. Liver:Size and echogenicity within normal limits. Pancreas:Nonspecific sonographic appearance. Right kidney:No hydronephrosis. Minor disagreements with preliminary report by [facility]. No major disagreement. IMPRESSION: 1) Positive for cholelithiasis. 2) Possibility of acute cholecystitis. 3) Common duct caliber 7 mm Transcribed Date/Time: 05/23/2020 8:34 AM
[2020-05-23] MEDS ORDERED: hydrALAZINE 20 MG/ML VIAL SLOW IVP PRN (08:06)
[2020-05-23] MEDS: Famotidine/PF 20 mg/2ml Vial SLOW IVP SCH (08:49)
[2020-05-23] MEDS: Piperacillin/Tazobactam 3.375 GM in Sodium Chloride 0.9% 100 ML IVPB SCH ×3 (10:24→22:00)
[2020-05-23 13:29] LABS: SARS-CoV-2 MS2 Positive; SARS-CoV-2 N Gene Negative; SARS-CoV-2 S Gene Negative; SARS-CoV-2 by NAA Not Detected (NotDetected); SARS-CoV-2 orf1ab Negative
--- NOTE | 2020-05-23 16:40 | PDOC.BPN ---
- Brief Progress Note Patient was seen examined. This is a 75 years female, who was admitted by my colleague this morning, for abdominal pain. Work-up showed acute cholecystitis, gallbladder ultrasound positive for stones. Her common bile ducts within normal limit. However her T bili is elevated. Post surgery and GI were consulted for possible ERCP, versus lap zeke with plus/minus IOC. Continue empiric antibiotic IV fluid hydration and supportive cares
[2020-05-23] MEDS ORDERED: Ketorolac Tromethamine 30 MG/ML VIAL IVP PRN (17:47)
[2020-05-23] MEDS ORDERED: Acetaminophen 500 MG TAB PO PRN (17:47)
[2020-05-23] MEDS ORDERED: Scopolamine 1.5 mg/72 hour Patch TD SCH (18:00)
--- NOTE | 2020-05-23 18:26 | RAD ---
Exam: Chest one view HISTORY:Preoperative exam. Comparison: 11/12/2018 FINDINGS: Cardiac silhouette: Normal Aorta: Unremarkable Pulmonary vessels: Normal Costophrenic angles: Clear LUNGS: Chronic changes. No consolidation or masses. Pneumothorax: None Osseous abnormalities: Old right rib fractures. Chronic changes involving the right humeral head. IMPRESSION: No acute cardiopulmonary process.
--- NOTE | 2020-05-23 23:56 | CON ---
DATE OF CONSULTATION: HISTORY OF PRESENT ILLNESS: Aniya Root is a 75-year-old female, who lives independently, uses a walker to get around the house, has been having upper abdominal pain for some time. It is noted in the records at this facility that she had an ultrasound of her gallbladder in 2018 demonstrating gallstones with bile duct caliber of 6 mm and on this admission, evaluation for abdominal pain revealed multiple gallstones with a bile duct caliber of 7 mm and a sonographic positive Jimenez sign. Her COVID serology is negative. Her bilirubin is 4.0 and has been slightly elevated in the years passed up to 2.7 in 2018. Her AST and ALT are slightly elevated. Lipase is normal. ALLERGIES: NONE. SOCIAL HISTORY: Tobacco cessation 2014. Alcohol, none. MEDICATIONS: At home; 1. Aspirin 81 mg a day. 2. Nexium daily. 3. Losartan b.i.d. 4. Claritin at bedtime. 5. Synthroid 75 mcg 0600 hours. 6. Simvastatin 20 mg at bedtime. 7. Zoloft daily. 8. Folic acid daily. 9. Zofran p.r.n. 10. Motrin p.r.n. 11. Trelegy Ellipta one puff daily INH. 12. Calcium carbonate. 13. Tums q.4 hours p.r.n. 14. Tylenol extra strength p.r.n. PAST SURGICAL HISTORY: Dr. Bryan on September 29, 2018, ORIF hip left subtrochanteric femur fracture. PAST MEDICAL HISTORY: Chest x-ray October 2018 changes consistent with possible COPD. Smoking cessation 2014 is noted. REVIEW OF SYSTEMS: [place], noncontributory. The patient did have an echocardiogram in 2014 with normal ejection fraction. She is asymptomatic from cardiac standpoint. FAMILY HISTORY: Noncontributory. PHYSICAL EXAMINATION: VITAL SIGNS: 5 feet 2 inches, 126 pounds, and 23 BMI. 98.6, 84, and 133/70. HEENT: Sclerae nonicteric. SKIN: Nonjaundiced. LUNGS: Clear to auscultation. CARDIAC: Regular rate and rhythm without murmur or gallop. ABDOMEN: Soft and tenderness in right upper quadrant with positive Jimenez sign. EXTREMITIES: Unremarkable. ASSESSMENT AND PLAN: Cholecystitis and cholelithiasis with normal bile duct caliber for age and her liver function tests elevated. This could be all entirely due to cholelithiasis and cholecystitis. We would recommend laparoscopic video cholecystectomy and cholangiogram. Dr. Christine has been consulted. He is prepared to do an endoscopic retrograde cholangiopancreatography. Depending on her liver function test tomorrow consideration for an endoscopic retrograde cholangiopancreatography prior to laparoscopic cholecystectomy could be considered. We will await findings tomorrow. She understands risks of operation, infection, bleeding, reoperation, and consents. Job ID: [id number]
--- NOTE | 2020-05-24 01:54 | CON ---
DATE OF CONSULTATION: 05/23/2020 REASON FOR CONSULTATION: Elevated LFTs, right upper quadrant abdominal pain. CONSULTING PROVIDER: Keiko Daley MD HISTORY OF PRESENT ILLNESS: The patient is a 75-year-old female with past medical history of hypothyroidism, hypertension, COPD, and hyperlipidemia, presenting with complaints of midepigastric/right upper quadrant abdominal pain. She states that she has had multiple recurrences of this pain over time, but the most recent episode was remote (greater than 10 years), lasted for 30 to 45 minutes in duration and resolve spontaneously. She described it as "gallbladder problems." However, she had not had any further problems until yesterday when the patient had a repeat of her increased midepigastric abdominal pain that she characterized as a burning/throbbing type sensation, radiated to the right upper quadrant, left upper quadrant, and mid back, was constant and reached a severity of 7/10 to 8/10. She could not recall any clear exacerbating or alleviating factors, but was possibly alleviated with lying down. This pain was associated with increased shortness of breath, especially with the occurrence of the pain, nausea, and vomiting with nonbloody emesis and subjective chills. However, she denied any hematemesis, melena, hematochezia, fever, dysphagia, odynophagia, diarrhea, constipation, or weight loss. With the increase in her abdominal pain, she was then prompted to seek healthcare assistance at the [facility] ER and while in the ER, she was noted to have significantly elevated LFTs and admitted to the hospital for further evaluation. At the current time, the patient states that she is doing better with a decrease in her abdominal pain, although it does continue to persist, although she has had resolution of her nausea, vomiting, and shortness of breath. REVIEW OF SYSTEMS: A 10-category review of systems was obtained with all responses negative except for the pertinent positives as listed in HPI. PAST MEDICAL HISTORY: As per HPI. PAST SURGICAL HISTORY: Hysterectomy and left hip surgery. FAMILY HISTORY: Denies any GI malignancies. SOCIAL HISTORY: Denies any current tobacco, alcohol, or illicit drug use; however, she has an approximate 50 pack-year smoking history. OUTPATIENT MEDICATIONS: Reviewed. ALLERGIES: NO KNOWN DRUG ALLERGIES. PHYSICAL EXAMINATION: VITAL SIGNS: Temperature 98.6, pulse 71, blood pressure 133/70, respiratory rate 20, and saturating 93% on 2 L nasal cannula. GENERAL: The patient was lying in bed, in no acute distress. Alert and oriented x4. HEENT: Normocephalic and atraumatic. NECK: Supple. No JVD noted. However, positive scleral icterus. CARDIOVASCULAR: Regular rate and rhythm with no discernible murmurs, gallops, or rubs. RESPIRATORY: Clear to auscultation bilaterally with no discernible wheezes or rales. ABDOMEN: Normoactive bowel sounds. Soft and nondistended. Tenderness to palpation in the epigastric and right upper quadrant. EXTREMITIES: No cyanosis, clubbing, or edema. LABORATORY DATA: CBC with a white blood cell count of 9.1, hemoglobin 9.4, hematocrit 29.8, and platelets 180. Chemistry with a sodium of 138, potassium 3.9 chloride 107, CO2 of 18, BUN 14, creatinine 1.08, glucose 139, AST 372, ALT 167, alkaline phosphatase 147, total bilirubin 4.0, albumin 4.0, and lipase 25. IMAGING DATA: Right upper quadrant ultrasound was obtained on May 23, 2020, which showed the presence of cholelithiasis along with pericholecystic fluid consistent with possible acute cholecystitis. The common bile duct measured approximately 7.2 mm in diameter. ASSESSMENT AND PLAN: The patient is a 75-year-old female with past medical history of hypothyroidism, hypertension, COPD, and hyperlipidemia, presenting with midepigastric/right upper quadrant abdominal pain concerning for cholelithiasis with choledocholithiasis. Cholecystitis/choledocholithiasis. The patient initially presented with increased midepigastric abdominal pain for the last day, characterized as a burning/throbbing type sensation, was constant and reached a severity of 7/10 to 8/10. On review of her initial labs, she was noted to have an elevated AST, ALT, and mildly elevated alkaline phosphatase, but a moderately elevated total bilirubin. Given the presence of cholelithiasis on imaging in addition to elevated LFTs and an elevated total bilirubin around 4, she is at high risk for the presence of choledocholithiasis and would benefit from endoscopic retrograde cholangiopancreatography. Recommendations; 1. Would place the patient on a clear liquid diet today with plans for n.p.o. at midnight in anticipation of endoscopic retrograde cholangiopancreatography tomorrow. 2. Would plan for endoscopic retrograde cholangiopancreatography tomorrow morning for extraction of probable biliary stone from the common bile duct. 3. Agree with placing the patient on Zosyn for antibiotic prophylaxis for cholangitis. 4. Would confer with General Surgery Service for timing related to endoscopic retrograde cholangiopancreatography and possible laparoscopic cholecystectomy immediately after the procedure. 5. Pain control per primary team. We will continue to follow. Please call with any questions. Job ID: [id number]
[2020-05-24] MEDS: Sodium Chloride 0.9% 1,000 ML IV SCH ×3 (03:02→19:34)
[2020-05-24] MEDS: Piperacillin/Tazobactam 3.375 GM in Sodium Chloride 0.9% 100 ML IVPB SCH ×2 (03:50→09:12)
[2020-05-24 05:58] LABS: #Eosinphils 0.3 thou/uL (0.0-0.7); #Lymphocytes 1.1 thou/uL (1.20-3.40); #Monocytes 0.5 thou/uL (0.11-0.59); #Neutrophils 4.1 thou/uL (1.40-6.50); %Basophils 0.2 % (0.0-1.0); %Eosinophils 5.8 % (0.0-10.0); %Lymphocytes 18.4 % (21.0-51.0); %Monocytes 7.8 % (0.0-10.0); %Neutrophils 67.8 % (42.0-75.0); Mean Corpuscular HGB CONC 32.2 g/dL (32.0-36.0); Mean Corpuscular Hemoglobin 20.1 pg (27.0-31.0); Mean Corpuscular Volume 62.5 fL (78.0-98.0); Platelet Count 129 thou/uL (130-400); RBC Distribution Width 16.1 % (11.5-14.5); Red Blood Cell (RBC) Count 3.97 mill/uL (4.20-5.40)
[2020-05-24 06:05] LABS: ALT (SGPT) 189 U/L (8-55); AST (SGOT) 169 U/L (5-34); Albumin 3.2 g/dL (3.4-4.8); Alkaline Phosphatase 123 U/L (40-110); Anion Gap 10 mmol/L (10-20); BUN (Urea Nitrogen) 11 mg/dL (9.8-20.1); Bilirubin, Total 3.2 mg/dL (0.2-1.2); Calc. Creatinine Clearance 31 mL/min (70-130); Calcium 7.4 mg/dL (7.8-10.44); Carbon Dioxide 22 mmol/L (23-31); Chloride 111 mmol/L (98-107); Estimated GFR-MDRD 37; Globulin 2.4 g/dL (2.4-3.5); Glucose 80 mg/dL (83-110); Potassium 4.2 mmol/L (3.5-5.1); Protein, Total 5.6 g/dL (6.0-8.3); Sodium 139 mmol/L (136-145)
[2020-05-24] MEDS: Famotidine/PF 20 mg/2ml Vial SLOW IVP SCH (09:12)
[2020-05-24] MEDS ORDERED: Rocuronium Bromide 10 MG/ML (10ML VIAL) ONE (09:43)
[2020-05-24] MEDS ORDERED: Ondansetron PF 4 MG/2 ML Vial ONE (09:43)
[2020-05-24] MEDS ORDERED: Lidocaine 1% PF 5 ML VIAL ONE (09:43)
[2020-05-24] MEDS ORDERED: PROPOFOL 200 MG/20 ML VIAL ONE (09:43)
[2020-05-24] MEDS ORDERED: Iothalamate Meglumine 60% 50 ML VIAL FS ONE (12:08)
[2020-05-24] MEDS ORDERED: Bupivacaine PF 0.5% 30 ML VIAL ONE (12:08)
[2020-05-24] MEDS ORDERED: Lidocaine 1% w/Epinephrine 1:100K 20 ML VIAL ONE (12:08)
[2020-05-24] MEDS ORDERED: Fentanyl 100 MCG/2 ML VIAL ONE (12:10)
[2020-05-24] MEDS ORDERED: traMADol HCl 50 MG TAB PO PRN (13:40)
[2020-05-24] MEDS ORDERED: Ondansetron ODT 4 MG TAB PO PRN (13:42)
[2020-05-24] MEDS ORDERED: Ibuprofen 200 MG TAB PO PRN (13:42)
[2020-05-24] MEDS ORDERED: Calcium Carbonate 500 MG ChewTAB PO PRN (13:42)
[2020-05-24] MEDS ORDERED: Promethazine HCl 25 MG/ML VIAL ONE (13:55)
[2020-05-24] MEDS ORDERED: Ondansetron HCl/PF 4 MG/2 ML Vial IVP PRN (13:57)
[2020-05-24] MEDS ORDERED: Promethazine HCl 25 MG/ML VIAL SLOW IVP PRN (13:57)
[2020-05-24] MEDS ORDERED: Promethazine HCl 25 MG/ML VIAL IM PRN (13:57)
--- NOTE | 2020-05-24 16:34 | RAD ---
EXAM: XR Cholangiogram in Surgery PROVIDED CLINICAL HISTORY: Intraoperative cholangiogram. Patient with right upper quadrant abdominal pain and cholelithiasis. COMPARISON: None FINDINGS/IMPRESSION: Single image from an intraoperative cholangiogram is submitted for interpretation. Surgical instrumen ts overlie the right upper quadrant. Common duct, proximal hepatic ducts, and more peripheral right hepatic ducts are opacified. The cystic duct is cannulated. The common duct does appear mildly promin ent. There is an irregular wedge-shaped area of contrast seen overlying the distal common duct which is likely related to extravasation of contrast in this region. The distal common duct is obscur ed due to the overlying contrast in this region. Free spill of contrast into the duodenum is visualized. No obvious filling defect is seen in the visualized intraextrahepatic ducts. Correlation with intraoperative findings is recommended. Fluoroscopy: Time-6 seconds Dose-0.722 mGy
--- NOTE | 2020-05-24 17:04 | PRG ---
DATE OF SERVICE: 05/24/2020 REASON FOR CONSULTATION: Elevated LFTs, right upper quadrant abdominal pain, possible choledocholithiasis. SUBJECTIVE: Overnight the patient had complete resolution of her abdominal pain with no further bouts of abdominal pain this morning. Otherwise, she did not have any acute events or problems overnight. Currently, she denies any nausea, vomiting, fevers, chills, hematemesis, melena, hematochezia, dysphagia, or odynophagia. OBJECTIVE: VITAL SIGNS: Temperature 98.4, pulse 93, blood pressure 155/82, respiratory rate 18, saturating 94% on 2 L nasal cannula. GENERAL: The patient was lying in bed, in no acute distress. Alert and oriented x4. CARDIOVASCULAR: Regular rate and rhythm. RESPIRATORY: Clear to auscultation bilaterally. ABDOMEN: Normoactive bowel sounds. Soft, nontender, nondistended. EXTREMITIES: No cyanosis, clubbing, or edema. LABORATORY DATA: CBC with a white blood cell count of 6.0, hemoglobin 8.0, hematocrit 24.9, platelets 129. Chemistry with a sodium 139, potassium 4.2, chloride 111, CO2 of 22, BUN 11, creatinine 1.38, glucose 80, AST 169, ALT 189, alkaline phosphatase 123, total bilirubin 3.2. IMAGING DATA: The patient underwent a laparoscopic cholecystectomy earlier today with intraoperative cholangiogram performed at the time of the surgery with no evidence of an obstructive process within the common bile duct. ASSESSMENT AND PLAN: 1. The patient is a 75-year-old female with past medical history of hypothyroidism, hypertension, chronic obstructive pulmonary disease, and hyperlipidemia, presenting with midepigastric/right upper quadrant abdominal pain concerning for cholelithiasis/cholecystitis with choledocholithiasis. 2. Cholecystitis/choledocholithiasis: The patient initially presented with increased midepigastric abdominal pain characterized as a burning/throbbing sensation that reached a severity of 7 to 8/10. On review of her initial labs she was noted to have an elevated AST, ALT, alkaline phosphatase, and total bilirubin concerning for the presence of an obstructive process and choledocholithiasis. However, over 24 hours, her all 4 of these labs decreased raising the possibility of possible passing the stone and/or possible Philippe syndrome contributing to the elevation of her total bilirubin. Subsequently, she underwent laparoscopic cholecystectomy on May 24, 2020, with an intraoperative cholangiogram performed at that time without any evidence of obstruction. RECOMMENDATIONS: 1. Given lack of obstructive features on IOC, ERCP is not indicated at this time. 2. We would defer to General Surgery Service for pain control and further management. We will sign off. Please call with any questions. Job ID: [id number]
--- NOTE | 2020-05-24 17:14 | OP ---
DATE OF PROCEDURE: 05/24/2020 PREOPERATIVE DIAGNOSES: Acute cholecystitis, chronic cholecystitis, cholelithiasis, disease, possible choledocholithiasis. POSTOPERATIVE DIAGNOSES: Acute on chronic cholecystitis, cholelithiasis, disease, normal cholangiograms, no evidence of choledocholithiasis, but noted dilated bile duct, biliary tree without filling defects. PROCEDURE PERFORMED: Laparoscopic video cholecystectomy, intraoperative cholangiograms using fluoroscopy. ANESTHESIA: General, local 0.5% Marcaine 30 mL mixed with 1% Xylocaine with epinephrine 20 mL. DESCRIPTION OF PROCEDURE: The patient was taken to the operating room, where under general anesthesia, abdomen was prepared with ChloraPrep and draped in routine fashion. Local anesthetic was infiltrated in the skin and subcutaneous tissue about operative sites. Infraumbilical incision made. Pneumoperitoneum to 15 mmHg was obtained with a Veress needle, replaced with a 5 port, and video laparoscope inserted. Right subxiphoid incision was made and 11 port placed. Right subcostal incision made. At midclavicular and anterior axillary line, the 5 ports placed. Liver appeared to be normal. Gallbladder was inflamed, edematous. Fundus grasped, retracted cephalad. Infundibulum grasped, retracted laterally. Cystic artery and duct dissected free, critical view obtained. Cystic artery doubly clipped proximally, cystic duct singly clipped on the gallbladder side. Opening was made in the cystic duct. Cholangiocatheter inserted and cholangiogram was obtained using fluoroscopy, revealing free flow of contrast into the duodenum without filling defects and the dilated common hepatic, common bile, and left and right hepatic ducts. Cholangiocatheter removed, cystic duct stump doubly clipped. Critical view obtained. Cystic artery and duct divided, gallbladder dissected free from liver bed, obtaining good hemostasis using the cautery. Gallbladder and multiple small stones removed and submitted to Pathology, good hemostasis ensured. Irrigant and pneumoperitoneum evacuated. All instruments removed and all skin incisions were approximated with interrupted subdermal 4-0 Monocryl and [place] glue applied. Job ID: [id number]
[2020-05-24] MEDS: Mometasone 100 MCG/PUFF (1 INHALER) INH SCH (17:20)
[2020-05-24] MEDS: Acetaminophen 500 MG TAB PO SCH (17:49)
--- NOTE | 2020-05-24 18:36 | PDOC.HOSPP ---
- Subjective Subjective: pt is s/p lap zeke with negative IOC. Her renal function went up slightly. She is currently is on IV fluid hydration. Discussed with Dr. Talbot. Recommend observe her overnight. Repeat lab in the a.m. if stable and tolerate diet patient can be discharged home. denies of abd pain - Objective Vital Signs & Weight: Vital Signs (12 hours) Temp Pulse Resp BP Pulse Ox 05/24/20 17:18 85 20 94 L 05/24/20 14:40 98.4 F 93 18 155/82 H 94 L 05/24/20 11:27 98.9 F 69 14 124/62 93 L 05/24/20 07:58 98.3 F 71 18 107/60 99 Weight Weight 126 lb 14.4 oz I&O: 05/23/20 05/24/20 05/25/20 06:59 06:59 06:59 Intake Total 112.5 2480 1140 Balance 112.5 2480 1140 Result Diagrams: 05/24/20 05:06 05/24/20 05:06 Hospitalist ROS - Medication Medications: Active Medications Generic Name Dose Route Start Last Admin Trade Name Freq PRN Reason Stop Dose Admin Acetaminophen 1,000 mg 05/24/20 18:00 05/24/20 17:49 Tylenol PO 1,000 mg Q6HR BARBARA Administration Albuterol/Ipratropium 3 ml 05/24/20 19:00 05/24/20 17:18 Duoneb NEB 3 ml [id number] BARBARA Administration Sodium Chloride 1,000 mls @ 115 mls/hr 05/23/20 17:46 05/24/20 10:34 Normal Saline 0.9% IV 1,000 mls .[id number] BARBARA Administration Ketorolac Tromethamine 15 mg 05/23/20 17:47 05/24/20 14:50 Toradol IVP 05/28/20 17:48 15 mg Q6H PRN Administration Pain Mometasone Furoate 100 mcg 05/24/20 18:30 05/24/20 17:20 Asmanex Hfa 100 Mcg INH 2 puff BID-RT BARBARA Administration Scopolamine 1.5 mg 05/23/20 18:00 05/23/20 18:31 Transderm Scop TD 1.5 mg Q3D BARBARA Administration - Exam General Appearance: NAD, awake alert Eye: PERRL, anicteric sclera ENT: normocephalic atraumatic Neck: supple, symmetric, no JVD Heart: RRR, no murmur Respiratory: CTAB, no wheezes, no rales Gastrointestinal: soft, non-tender, non-distended, no guarding, distended Extremities: no cyanosis, no clubbing, no edema Skin: normal turgor Neurological: cranial nerve grossly intact, normal sensation to touch, no weakness Musculoskeletal: normal tone, normal strength, no muscle wasting Psychiatric: normal affect, normal behavior, A&O x 3 Hosp A/P - Plan Assessment and plan: #Acute cholecystitis possible choledocholithiasis - s/p lap zeke with neg IOC #Elevated LFT #Abdominal pain secondary to above, resolved #COPD #Hypertension, blood pressure stable #Dyslipidemia #Hypothyroidism #GIOVANNI 05/24/20 Patient status post lap zeke with negative IOC. Patient tolerated procedure well. Her renal function went up slightly overnight. She is currently is on IV fluid hydration. We will try to avoid NSAIDnephrotoxic agents. Repeat her labs in a.m.. Discussed with surgery, if renal function stable. tolerating diet , patient possibly can be discharged home in a.m. Appreciate surgery and GI input.
[2020-05-24] MEDS: Losartan 25 MG TAB PO SCH (19:34)
[2020-05-24] MEDS ORDERED: Loratadine 10 MG TAB PO SCH (21:00)
[2020-05-24] MEDS ORDERED: Atorvastatin Calcium 10 MG TAB PO SCH (21:00)
[2020-05-25] MEDS: Acetaminophen 500 MG TAB PO SCH ×2 (00:22→05:35)
[2020-05-25] MEDS: Sodium Chloride 0.9% 1,000 ML IV SCH (01:13)
[2020-05-25 05:49] LABS: #Eosinphils 0.2 thou/uL (0.0-0.7); #Lymphocytes 1.1 thou/uL (1.20-3.40); #Monocytes 0.5 thou/uL (0.11-0.59); #Neutrophils 4.1 thou/uL (1.40-6.50); %Basophils 0.2 % (0.0-1.0); %Eosinophils 3.4 % (0.0-10.0); %Lymphocytes 18.2 % (21.0-51.0); %Monocytes 8.8 % (0.0-10.0); %Neutrophils 69.4 % (42.0-75.0); Hemoglobin 7.7 g/dL (12.0-16.0); Mean Corpuscular HGB CONC 31.9 g/dL (32.0-36.0); Mean Corpuscular Hemoglobin 19.9 pg (27.0-31.0); Mean Corpuscular Volume 62.5 fL (78.0-98.0); Mean Platelet Volume 10.1 fL (7.4-10.4); Platelet Count 134 thou/uL (130-400); RBC Distribution Width 16.2 % (11.5-14.5); Red Blood Cell (RBC) Count 3.86 mill/uL (4.20-5.40); White Blood Cell (WBC) Count 5.9 thou/uL (4.8-10.8)
[2020-05-25 06:00] LABS: ALT (SGPT) 139 U/L (8-55); AST (SGOT) 95 U/L (5-34); Albumin 3.2 g/dL (3.4-4.8); Alkaline Phosphatase 109 U/L (40-110); Anion Gap 11 mmol/L (10-20); BUN (Urea Nitrogen) 11 mg/dL (9.8-20.1); Bilirubin, Total 1.4 mg/dL (0.2-1.2); Calc. Creatinine Clearance 35 mL/min (70-130); Calcium 7.5 mg/dL (7.8-10.44); Carbon Dioxide 20 mmol/L (23-31); Chloride 112 mmol/L (98-107); Estimated GFR-MDRD 42; Globulin 2.4 g/dL (2.4-3.5); Glucose 84 mg/dL (83-110); Potassium 3.5 mmol/L (3.5-5.1); Protein, Total 5.6 g/dL (6.0-8.3); Sodium 139 mmol/L (136-145)
[2020-05-25] MEDS ORDERED: Levothyroxine Sodium 75 MCG TAB PO SCH (06:00)
[2020-05-25] MEDS: Mometasone 100 MCG/PUFF (1 INHALER) INH SCH (06:51)
[2020-05-25 07:41] VITALS: BP 128/64; TEMP 98.4
[2020-05-25] MEDS: Losartan 25 MG TAB PO SCH (08:22)
[2020-05-25] MEDS ORDERED: Polyethylene Glycol 3350 17 GM Packet PO SCH (09:00)
[2020-05-25] MEDS ORDERED: Folic Acid 1 MG TAB PO SCH (09:00)
[2020-05-25] MEDS ORDERED: Aspirin 81 mg Enteric Coated Tablet PO SCH (09:00)
--- NOTE | 2020-05-25 11:56 | DIS ---
DATE OF ADMISSION: 05/23/2020 DATE OF DISCHARGE: 05/25/2020 DISCHARGE DIAGNOSES: 1. Status post laparoscopic cholecystectomy for acute cholecystitis. 2. Transaminitis secondary to cholecystitis. 3. Chronic obstructive pulmonary disease. 4. Hypertension. 5. Hyperlipidemia. 6. Hypothyroidism. 7. Acute kidney injury. 8. COVID negative. DISCHARGE MEDICATIONS: 1. Aspirin 81 mg daily. 2. Nexium 20 mg daily. 3. Losartan 50 mg twice a day, the dose has to be verified. 4. Claritin 10 mg at bedtime. 5. Levothyroxine 75 mcg. 6. Simvastatin 20 mg. 7. Folic acid 0.4 mg daily. 8. Zoloft one tablet daily. 9. Several p.r.n. medications. PHYSICAL EXAMINATION: VITAL SIGNS: On the day of discharge, temperature is 98.4, pulse 67, blood pressure 128/64, saturating 97% on room air. GENERAL: The patient is alert, oriented. No abdominal pain. She is having a bowel movement this morning. Tolerating her p.o. intake. Discussed with the daughter discharge plan and they are agreeable to be discharged home today. CARDIOVASCULAR: Regular rate and rhythm without murmurs, rubs, or gallops. LUNGS: Clear to auscultation bilaterally without wheezing, rales, or rhonchi. ABDOMEN: Soft, nontender, nondistended. Good bowel sounds. EXTREMITIES: Without any pitting edema. HOSPITAL COURSE: This is a 75-year-old female, presented with acute cholecystitis, status post laparoscopic cholecystectomy by Dr. Talbot. She is observed overnight for hemodynamics stability as well as functional status rastafarian, which is back to baseline. She is stable to be discharged home today. Follow up with primary care physician in a week. Follow up with Dr. Talbot per the [facility] appointment. Resume regular diet. Discharge time took over 35 minutes. Job ID: [id number] [facility] [place]
== END 2020-05-25 10:30 | disposition home or self-care (01) | DRG 418 ==
LOC: ERS 02:39 → SURG B 05:35
PROVIDERS: ADMIT Internal Medicine; ATTEND Internal Medicine
PROC: 0FT44ZZ Resection of Gallbladder, Percutaneous Endoscopic Approach (ICD-10-PCS; principal; 2020-05-24)
PROC: BF10YZZ Fluoroscopy of Bile Ducts using Other Contrast (ICD-10-PCS; 2020-05-24)
DX: K80.12 Calculus of gallbladder with acute and chronic cholecystitis without obstruction (principal); N17.9 Acute kidney failure, unspecified; Z20.828 Contact with and (suspected) exposure to other viral communicable diseases; E03.9 Hypothyroidism, unspecified; I10 Essential (primary) hypertension; J44.9 Chronic obstructive pulmonary disease, unspecified; E78.5 Hyperlipidemia, unspecified; E78.00 Pure hypercholesterolemia, unspecified; F41.9 Anxiety disorder, unspecified; Z90.710 Acquired absence of both cervix and uterus; Z87.891 Personal history of nicotine dependence; Z79.51 Long term (current) use of inhaled steroids; Z79.82 Long term (current) use of aspirin; Z79.899 Other long term (current) drug therapy; Z79.890 Hormone replacement therapy
CPT/HCPCS: 36415; 47532; 71045; 76705; 80053; 83690; 84484; 85025; 85060; 86850; 86900; 86901; 87635; 88304; 90471; 90732; 93005; 94640; 96365; 96375; G0009; J1610; J1885; J2405; J2543; J2550; J2704; J3010; J3490; J7620; S0020; S0028; U0003

== ENCOUNTER 2020-10-16 10:16 | Outpatient (CLI) | payer MEDICARE ==
--- NOTE | 2020-10-16 11:26 | RAD ---
CHEST 2 VIEWS: Date: 10/16/2020 HISTORY: Dyspnea. COMPARISON: 05/23/2020. FINDINGS: There are new patchy interstitial, alveolar, and ground-glass opacity changes in the mid and lower antwan ng zones primarily, somewhat more peripherally oriented, with less inspiration. No cardiomegaly or pl eural effusion. IMPRESSION: Evidence for bilateral new patchy pneumonia, including COVID pneumonia. Continue short-term follow-up . POS: OFF
== END 2020-10-16 10:17 | disposition home or self-care (01) ==
LOC: BICRAD 10:16
PROVIDERS: ATTEND Internal Medicine Critical Care Medicine
DX: R06.00 Dyspnea, unspecified (principal); U07.1 COVID-19; J12.82 Pneumonia due to coronavirus disease 2019
CPT/HCPCS: 71046

== ENCOUNTER 2020-11-01 09:11 | Outpatient (CLI) | payer MEDICARE ==
--- NOTE | 2020-11-01 10:45 | MRI ---
MRI BRAIN WITH AND WITHOUT CONTRAST: INDICATION: TIA. COMPARISON: No comparison study. FINDINGS: Motion artifact degrades many of the sequences. Moderate cortical volume loss. There is ventriculom egaly which appears mildly disproportionate to the degree of atrophy. Mild chronic ischemic white ma tter change. No mass or edema. No evidence of restricted diffusion. No abnormal enhancement identified on post contrast images. The intracranial internal carotid arteries, cerebral arteries, and basilar arteries show flow voids. IMPRESSION: 1. Mild to moderate cortical atrophy. There is associated ventriculomegaly which appears slightly m ore prominent than expected for the degree of atrophy. Recommend clinical correlation regarding NPH. 2. Otherwise, no acute process. POS: AGW
== END 2020-11-01 09:12 | disposition home or self-care (01) ==
LOC: MRI 09:11
PROVIDERS: ATTEND Family Medicine
DX: G45.9 Transient cerebral ischemic attack, unspecified (principal); G31.9 Degenerative disease of nervous system, unspecified; G93.89 Other specified disorders of brain
CPT/HCPCS: 70553

== ENCOUNTER 2020-12-02 13:36 | Outpatient (CLI) | payer MEDICARE | END 2020-12-02 13:37 | disposition home or self-care (01) | LOC: TBSIIMAG 13:36 | PROVIDERS: ATTEND Neurological Surgery | DX: M48.02 Spinal stenosis, cervical region (principal); R27.0 Ataxia, unspecified; M47.812 Spondylosis without myelopathy or radiculopathy, cervical region; M50.30 Other cervical disc degeneration, unspecified cervical region; M25.80 Other specified joint disorders, unspecified joint | CPT/HCPCS: 72040; 72141 ==

== ENCOUNTER 2021-01-15 07:43 | Day surgery (SDC) | payer MEDICARE ==
[2021-01-13 11:50] VITALS: BMI 28.5
[2021-01-15 08:09] VITALS: BP 166/68; TEMP 97.4
== END 2021-01-15 10:40 | disposition home or self-care (01) ==
LOC: RAD 07:43
PROVIDERS: ATTEND Neurological Surgery
PROC: 009U3ZX Drainage of Spinal Canal, Percutaneous Approach, Diagnostic (ICD-10-PCS; principal; 2021-01-15)
DX: G91.2 (Idiopathic) normal pressure hydrocephalus (principal); M48.02 Spinal stenosis, cervical region; J44.9 Chronic obstructive pulmonary disease, unspecified; I10 Essential (primary) hypertension; Z87.891 Personal history of nicotine dependence; Z79.82 Long term (current) use of aspirin; Z79.899 Other long term (current) drug therapy; Z99.81 Dependence on supplemental oxygen
CPT/HCPCS: 62270

== ENCOUNTER 2021-02-12 10:58 | Outpatient (CLI) | payer MEDICARE | END 2021-02-12 10:59 | disposition home or self-care (01) | LOC: BICRAD 10:58 | PROVIDERS: ATTEND Internal Medicine Critical Care Medicine | DX: R06.00 Dyspnea, unspecified (principal); R91.8 Other nonspecific abnormal finding of lung field; J98.4 Other disorders of lung | CPT/HCPCS: 71046 ==

== ENCOUNTER 2021-04-03 09:30 | Inpatient (IN) | payer MEDICARE ==
[2021-04-07 14:32] VITALS: BMI 23.4
[2021-04-09 12:05] VITALS: TEMP 98.1
[2021-04-09 16:16] VITALS: BP 145/72
== END 2021-04-09 17:15 | disposition home or self-care (01) | DRG 33 ==
LOC: SURG A 04-08 05:46 → EDSTATUS 04-08 09:30 → SURG A 04-08 10:45
PROVIDERS: ADMIT Neurological Surgery; ATTEND Neurological Surgery
PROC: 00160J6 Bypass Cerebral Ventricle to Peritoneal Cavity with Synthetic Substitute, Open Approach (ICD-10-PCS; principal; 2021-04-08)
DX: G91.2 (Idiopathic) normal pressure hydrocephalus (principal); E78.5 Hyperlipidemia, unspecified; D56.3 Thalassemia minor; J44.9 Chronic obstructive pulmonary disease, unspecified; I10 Essential (primary) hypertension; E03.9 Hypothyroidism, unspecified; M81.0 Age-related osteoporosis without current pathological fracture; Z87.891 Personal history of nicotine dependence; Z90.49 Acquired absence of other specified parts of digestive tract; Z79.899 Other long term (current) drug therapy; Z79.890 Hormone replacement therapy; Z79.01 Long term (current) use of anticoagulants
CPT/HCPCS: 36415; 82565; 94640; J1100; J2001; J2270; J2370; J2405; J2704; J3010; J3370; J7620

== ENCOUNTER 2021-05-30 12:25 | Outpatient (CLI) | payer MEDICARE | END 2021-05-30 12:26 | disposition home or self-care (01) | LOC: BICCT 12:25 | PROVIDERS: ATTEND Neurological Surgery | DX: G91.9 Hydrocephalus, unspecified (principal); G93.89 Other specified disorders of brain | CPT/HCPCS: 70450 ==

== ENCOUNTER 2021-07-04 12:47 | Outpatient (CLI) | payer MEDICARE | END 2021-07-04 12:48 | disposition home or self-care (01) | LOC: BICCT 12:47 | PROVIDERS: ATTEND Neurological Surgery | DX: G91.2 (Idiopathic) normal pressure hydrocephalus (principal); G93.89 Other specified disorders of brain; Z98.2 Presence of cerebrospinal fluid drainage device | CPT/HCPCS: 70450 ==

== ENCOUNTER 2021-08-20 10:28 | Outpatient (CLI) | payer MEDICARE | END 2021-08-20 10:29 | disposition home or self-care (01) | LOC: RAD 10:28 | PROVIDERS: ATTEND Internal Medicine Critical Care Medicine | DX: R06.00 Dyspnea, unspecified (principal) | CPT/HCPCS: 71046 ==

== ENCOUNTER 2022-05-07 11:10 | Outpatient (CLI) | payer MEDICARE | END 2022-05-07 11:11 | disposition home or self-care (01) | LOC: RAD 11:10 | PROVIDERS: ATTEND Internal Medicine Critical Care Medicine | DX: R06.09 Other forms of dyspnea (principal); J98.4 Other disorders of lung; J92.9 Pleural plaque without asbestos | CPT/HCPCS: 71046 ==

== ENCOUNTER 2022-07-01 10:29 | Outpatient (CLI) | payer MEDICARE | END 2022-07-01 10:30 | disposition home or self-care (01) | LOC: RAD 10:29 | PROVIDERS: ATTEND Internal Medicine Critical Care Medicine | DX: R06.09 Other forms of dyspnea (principal); J18.1 Lobar pneumonia, unspecified organism | CPT/HCPCS: 71046 ==

== ENCOUNTER 2022-07-05 20:53 | Inpatient (IN) | payer MEDICARE ==
[2022-07-05] MEDS ORDERED: Ondansetron PF 4 MG/2 ML Vial IVP PRN (22:04)
[2022-07-05] MEDS: cefTRIAXone\\ROCEPHIN 2 GM in Sodium Chloride 0.9% 100 ML IVPB SCH (23:19)
[2022-07-05] MEDS: Sodium Chloride 0.9% 1,000 ML IV SCH (23:19)
[2022-07-05] MEDS: methylPREDNISolone Sod Succ 40 MG VIAL IVP SCH (23:21)
[2022-07-06] MEDS: methylPREDNISolone Sod Succ 40 MG VIAL IVP SCH ×4 (05:06→23:47)
[2022-07-06] MEDS: Levothyroxine Sodium 88 MCG TAB PO SCH (05:06)
[2022-07-06 06:33] LABS: Legionella Urinary Ag Negative (Negative); Strep pneumo Urine Ag NEGATIVE (NEGATIVE)
[2022-07-06 06:40] LABS: Bilirubin Negative (Negative); Blood, Urine Negative (Negative); Clarity Clear (Clear); Glucose, Urine (Dipstick) Normal (Negative); Ketone, Urine Negative (Negative); Leukocyte Negative Leu/uL (Negative); Nitrite Negative (Negative); Protein, Urine (Dipstick) 20 mg/dL (Neg-Trace); RBC/HPF None Seen HPF (0-3); Specific Gravity, Urine 1.023 (1.002-1.036); WBC/HPF 0-3 HPF (0-3)
[2022-07-06] MEDS: Mometasone 100 MCG/PUFF (1 INHALER) INH SCH ×2 (06:50→19:10)
[2022-07-06 06:51] LABS: ALT (SGPT) 9 U/L (8-55); AST (SGOT) 13 U/L (5-34); Albumin 2.8 g/dL (3.4-4.8); Alkaline Phosphatase 103 U/L (40-110); Bilirubin, Direct 0.5 mg/dL (0.1-0.3); Bilirubin, Total 0.8 mg/dL (0.2-1.2); Hemoglobin 7.3 g/dL (12.0-16.0); Mean Corpuscular HGB CONC 31.3 g/dL (32.0-36.0); Platelet Count 180 thou/uL (130-400); Protein, Total 6.4 g/dL (5.8-8.1); RBC Distribution Width 17.6 % (11.5-14.5); Red Blood Cell (RBC) Count 3.66 mill/uL (4.20-5.40); White Blood Cell (WBC) Count 17.1 thou/uL (4.8-10.8)
[2022-07-06 06:53] LABS: Anion Gap 14 mmol/L (10-20); BUN (Urea Nitrogen) 41 mg/dL (9.8-20.1); Calc. Creatinine Clearance 20 mL/min (70-130); Calcium 8.1 mg/dL (7.8-10.44); Carbon Dioxide 18 mmol/L (23-31); Chloride 108 mmol/L (98-107); Estimated GFR 24; Glucose 188 mg/dL (83-110); Potassium 3.8 mmol/L (3.5-5.1); Sodium 136 mmol/L (136-145)
[2022-07-06 07:13] LABS: Bacteria/HPF Rare-Few HPF (None Seen)
[2022-07-06 07:14] LABS: Urine Culture Reflex No No
[2022-07-06] MEDS: Cholecalciferol 1,000 UNITS (25 MCG) TAB PO SCH (10:00)
[2022-07-06] MEDS: Heparin 5,000 UNITS/ML VIAL SC SCH ×2 (10:00→20:44)
[2022-07-06] MEDS: Azithromycin 500 MG in Sodium Chloride 0.9% 250 ML 250 ML IVPB SCH (10:00)
[2022-07-06] MEDS: Aspirin 81 mg Enteric Coated Tablet PO SCH (10:00)
[2022-07-06 11:51] LABS: Anisocytosis SLIGHT = 6-15 cells (100X) (0-5/hpf); Band 18 % (5-11); Hypochromia SLIGHT = 6-15 cells (100X) (0-5/hpf); Lymphocytes 3 % (21-51); MDiff Complete? YES; Mean Platelet Volume 6.8 fL (7.4-10.4); Microcytosis MODERATE=15-30 cells (100X) (0-5/hpf); Monocytes 2 % (0-10); Neutrophil 77 % (42-75); Platelet Morphology Comment Appears Adequate; Polychromasia SLIGHT = 2-3 cells (100X) (0-2/hpf); Reflex for Review?? YES; Target Cells SLIGHT = 2-5 cells (100X) (0-1/hpf); Tear Drops SLIGHT = 2-5 cells (100X) (0-1/hpf)
[2022-07-06] MEDS: Acetaminophen 325 MG TAB PO PRN (17:27)
[2022-07-06] MEDS: Sodium Chloride 0.9% 1,000 ML IV SCH ×2 (17:29→23:44)
[2022-07-06] MEDS: Atorvastatin Calcium 10 MG TAB PO SCH (20:42)
[2022-07-06] MEDS: Losartan 25 MG TAB PO SCH (20:43)
[2022-07-06] MEDS: Loratadine 10 MG TAB PO SCH (20:43)
[2022-07-06] MEDS: Folic Acid 1 MG TAB PO SCH (20:43)
[2022-07-06] MEDS: Cepastat Lozenges 1 LOZ PO PRN (20:44)
[2022-07-06] MEDS: cefTRIAXone\\ROCEPHIN 2 GM in Sodium Chloride 0.9% 100 ML IVPB SCH (23:43)
[2022-07-07] MEDS: Levothyroxine Sodium 88 MCG TAB PO SCH (05:07)
[2022-07-07] MEDS: methylPREDNISolone Sod Succ 40 MG VIAL IVP SCH ×3 (05:07→17:16)
[2022-07-07] MEDS: Cepastat Lozenges 1 LOZ PO PRN ×2 (05:09→20:07)
[2022-07-07 05:50] LABS: #Lymphocytes 0.5 thou/uL (1.20-3.40); #Monocytes 0.3 thou/uL (0.11-0.59); #Neutrophils 14.6 thou/uL (1.40-6.50); %Basophils 0.1 % (0.0-1.0); %Eosinophils 0.2 % (0.0-10.0); %Lymphocytes 3.2 % (21.0-51.0); %Monocytes 2.1 % (0.0-10.0); %Neutrophils 94.4 % (42.0-75.0); Hemoglobin 7.4 g/dL (12.0-16.0); Mean Corpuscular HGB CONC 31.3 g/dL (32.0-36.0); Mean Corpuscular Hemoglobin 20.2 pg (27.0-31.0); Mean Corpuscular Volume 64.3 fL (78.0-98.0); Mean Platelet Volume 10.4 fL (7.4-10.4); Platelet Count 217 thou/uL (130-400); RBC Distribution Width 17.9 % (11.5-14.5); Red Blood Cell (RBC) Count 3.67 mill/uL (4.20-5.40); White Blood Cell (WBC) Count 15.5 thou/uL (4.8-10.8)
[2022-07-07 05:59] LABS: Anion Gap 15 mmol/L (10-20); BUN (Urea Nitrogen) 37 mg/dL (9.8-20.1); Calc. Creatinine Clearance 26 mL/min (70-130); Calcium 7.9 mg/dL (7.8-10.44); Carbon Dioxide 16 mmol/L (23-31); Chloride 109 mmol/L (98-107); Estimated GFR 32; Glucose 207 mg/dL (83-110); Iron 61 ug/dL (50-170); Potassium 3.6 mmol/L (3.5-5.1); Sodium 136 mmol/L (136-145)
[2022-07-07 06:02] LABS: Reticulocyte Count 1.5 % (0.5-1.5)
[2022-07-07] MEDS: Mometasone 100 MCG/PUFF (1 INHALER) INH SCH ×2 (07:45→18:58)
[2022-07-07] MEDS: Azithromycin 500 MG in Sodium Chloride 0.9% 250 ML 250 ML IVPB SCH (08:29)
[2022-07-07] MEDS: Aspirin 81 mg Enteric Coated Tablet PO SCH (08:30)
[2022-07-07] MEDS: Losartan 25 MG TAB PO SCH ×2 (08:30→20:06)
[2022-07-07] MEDS: Cholecalciferol 1,000 UNITS (25 MCG) TAB PO SCH (08:30)
[2022-07-07] MEDS: Heparin 5,000 UNITS/ML VIAL SC SCH ×2 (08:30→20:08)
[2022-07-07] MEDS: Sodium Chloride 0.9% 1,000 ML IV SCH (15:46)
[2022-07-07] MEDS: Folic Acid 1 MG TAB PO SCH (20:06)
[2022-07-07] MEDS: Loratadine 10 MG TAB PO SCH (20:06)
[2022-07-07] MEDS: Cefdinir 300 MG CAP PO SCH (20:07)
[2022-07-07] MEDS: Acetaminophen 325 MG TAB PO PRN (20:07)
[2022-07-07] MEDS: Atorvastatin Calcium 10 MG TAB PO SCH (20:07)
[2022-07-08] MEDS: Levothyroxine Sodium 88 MCG TAB PO SCH (05:42)
[2022-07-08] MEDS: Cepastat Lozenges 1 LOZ PO PRN ×2 (05:56→18:04)
[2022-07-08 06:18] LABS: #Eosinphils 0.1 thou/uL (0.0-0.7); #Lymphocytes 0.8 thou/uL (1.20-3.40); #Monocytes 0.7 thou/uL (0.11-0.59); #Neutrophils 13.1 thou/uL (1.40-6.50); %Eosinophils 0.4 % (0.0-10.0); %Lymphocytes 5.4 % (21.0-51.0); %Monocytes 4.9 % (0.0-10.0); %Neutrophils 89.2 % (42.0-75.0); Hemoglobin 7.7 g/dL (12.0-16.0); Mean Corpuscular HGB CONC 31.6 g/dL (32.0-36.0); Mean Corpuscular Hemoglobin 20.1 pg (27.0-31.0); Mean Corpuscular Volume 63.8 fL (78.0-98.0); Platelet Count 248 thou/uL (130-400); RBC Distribution Width 17.9 % (11.5-14.5); Red Blood Cell (RBC) Count 3.82 mill/uL (4.20-5.40); White Blood Cell (WBC) Count 14.7 thou/uL (4.8-10.8)
[2022-07-08 06:53] LABS: Anion Gap 15 mmol/L (10-20); BUN (Urea Nitrogen) 33 mg/dL (9.8-20.1); Calc. Creatinine Clearance 33 mL/min (70-130); Carbon Dioxide 17 mmol/L (23-31); Chloride 112 mmol/L (98-107); Estimated GFR 42; Potassium 4.1 mmol/L (3.5-5.1); Sodium 140 mmol/L (136-145)
[2022-07-08 06:54] LABS: Calcium 8.1 mg/dL (7.8-10.44); Glucose 126 mg/dL (83-110)
[2022-07-08] MEDS: Mometasone 100 MCG/PUFF (1 INHALER) INH SCH ×2 (07:15→18:26)
[2022-07-08] MEDS: predniSONE 20 MG TAB PO SCH (08:46)
[2022-07-08] MEDS: Cholecalciferol 1,000 UNITS (25 MCG) TAB PO SCH (08:46)
[2022-07-08] MEDS: Losartan 25 MG TAB PO SCH ×2 (08:46→20:22)
[2022-07-08] MEDS: Aspirin 81 mg Enteric Coated Tablet PO SCH (08:46)
[2022-07-08] MEDS: Heparin 5,000 UNITS/ML VIAL SC SCH ×2 (08:47→20:23)
[2022-07-08] MEDS: Cefdinir 300 MG CAP PO SCH ×2 (08:47→20:21)
[2022-07-08] MEDS ORDERED: Chloraseptic Spray 180 ml Bottle PO PRN (11:34)
[2022-07-08] MEDS: Folic Acid 1 MG TAB PO SCH (20:22)
[2022-07-08] MEDS: Loratadine 10 MG TAB PO SCH (20:22)
[2022-07-08] MEDS: Acetaminophen 325 MG TAB PO PRN (20:22)
[2022-07-08] MEDS: Atorvastatin Calcium 10 MG TAB PO SCH (20:22)
[2022-07-09] MEDS: Levothyroxine Sodium 88 MCG TAB PO SCH (05:39)
[2022-07-09] MEDS: Losartan 25 MG TAB PO SCH ×2 (07:48→20:10)
[2022-07-09] MEDS: Cefdinir 300 MG CAP PO SCH ×2 (07:48→20:10)
[2022-07-09] MEDS: Aspirin 81 mg Enteric Coated Tablet PO SCH (07:49)
[2022-07-09] MEDS: Heparin 5,000 UNITS/ML VIAL SC SCH ×2 (07:49→20:11)
[2022-07-09] MEDS: Cholecalciferol 1,000 UNITS (25 MCG) TAB PO SCH (07:49)
[2022-07-09] MEDS: predniSONE 20 MG TAB PO SCH (07:49)
[2022-07-09] MEDS: Mometasone 100 MCG/PUFF (1 INHALER) INH SCH ×2 (07:55→18:46)
[2022-07-09] MEDS ORDERED: FLU VACC QS2022-23(65YR UP)/PF 240 MCG/0.7 ML SYRINGE IM ONE (09:00)
[2022-07-09] MEDS: Cepastat Lozenges 1 LOZ PO PRN (10:26)
[2022-07-09] MEDS ORDERED: Magnesium 2 GM/50 ML(in water) 2 GM in Premix Bag 1 BAG IVPB SCH (11:00)
[2022-07-09] MEDS: methylPREDNISolone Sod Succ/PF 125 MG/2 ML VIAL IVP SCH ×2 (11:27→17:40)
[2022-07-09] MEDS: Loratadine 10 MG TAB PO SCH (20:10)
[2022-07-09] MEDS: Atorvastatin Calcium 10 MG TAB PO SCH (20:10)
[2022-07-09] MEDS: Folic Acid 1 MG TAB PO SCH (20:10)
[2022-07-09] MEDS: methylPREDNISolone Sod Succ 40 MG VIAL IVP SCH (23:41)
[2022-07-10] MEDS: methylPREDNISolone Sod Succ 40 MG VIAL IVP SCH ×2 (06:08→20:01)
[2022-07-10] MEDS: Levothyroxine Sodium 88 MCG TAB PO SCH (06:08)
[2022-07-10] MEDS: Mometasone 100 MCG/PUFF (1 INHALER) INH SCH ×2 (06:42→18:44)
[2022-07-10 06:50] LABS: Hemoglobin 8.1 g/dL (12.0-16.0); Mean Corpuscular HGB CONC 31.2 g/dL (32.0-36.0); Mean Corpuscular Hemoglobin 19.7 pg (27.0-31.0); Mean Corpuscular Volume 63.4 fL (78.0-98.0); Mean Platelet Volume 8.8 fL (7.4-10.4); Platelet Count 298 thou/uL (130-400); RBC Distribution Width 17.9 % (11.5-14.5); Red Blood Cell (RBC) Count 4.12 mill/uL (4.20-5.40); White Blood Cell (WBC) Count 16.7 thou/uL (4.8-10.8)
[2022-07-10 07:11] LABS: Anion Gap 12 mmol/L (10-20); BUN (Urea Nitrogen) 32 mg/dL (9.8-20.1); Calc. Creatinine Clearance 34 mL/min (70-130); Carbon Dioxide 21 mmol/L (23-31); Chloride 108 mmol/L (98-107); Potassium 4.4 mmol/L (3.5-5.1); Sodium 137 mmol/L (136-145)
[2022-07-10 07:12] LABS: Calcium 8.8 mg/dL (7.8-10.44); Estimated GFR 45; Glucose 160 mg/dL (83-110)
[2022-07-10] MEDS: Cefdinir 300 MG CAP PO SCH ×2 (08:43→20:01)
[2022-07-10] MEDS: Losartan 25 MG TAB PO SCH ×2 (08:43→20:01)
[2022-07-10] MEDS: Heparin 5,000 UNITS/ML VIAL SC SCH ×2 (08:44→20:01)
[2022-07-10] MEDS: Cholecalciferol 1,000 UNITS (25 MCG) TAB PO SCH (08:44)
[2022-07-10] MEDS: Aspirin 81 mg Enteric Coated Tablet PO SCH (08:44)
[2022-07-10] MEDS: Cepastat Lozenges 1 LOZ PO PRN ×2 (08:45→20:13)
[2022-07-10 09:29] LABS: Band 14 % (5-11); Hypochromia MODERATE=16-30 cells (100X) (0-5/hpf); Lymphocytes 6 % (21-51); MDiff Complete? YES; Metamyelocyte 1 % (0-0); Microcytosis MODERATE=15-30 cells (100X) (0-5/hpf); Monocytes 6 % (0-10); Myelocyte 10 % (0-0); Neutrophil 63 % (42-75); Ovalocytes SLIGHT = 2-5 cells (100X) (0-1/hpf); Platelet Morphology Comment Appears Adequate; Polychromasia SLIGHT = 2-3 cells (100X) (0-2/hpf); Schistocytes SLIGHT = 2-5 cells (100X) (0-1/hpf); Tear Drops SLIGHT = 2-5 cells (100X) (0-1/hpf)
[2022-07-10] MEDS: Atorvastatin Calcium 10 MG TAB PO SCH (20:01)
[2022-07-10] MEDS: Loratadine 10 MG TAB PO SCH (20:01)
[2022-07-10] MEDS: Folic Acid 1 MG TAB PO SCH (20:02)
[2022-07-10] MEDS ORDERED: Sodium Chloride 0.65% Nasal 44 ML BOT EA NARE PRN ×2 (21:27→21:28)
[2022-07-10] MEDS: Guaifenesin DM 100-10/5 ML UDCUP PO PRN (23:52)
[2022-07-11] MEDS: Guaifenesin DM 100-10/5 ML UDCUP PO PRN (04:58)
[2022-07-11] MEDS: Levothyroxine Sodium 88 MCG TAB PO SCH (04:58)
[2022-07-11] MEDS: Cepastat Lozenges 1 LOZ PO PRN (05:03)
[2022-07-11] MEDS: Mometasone 100 MCG/PUFF (1 INHALER) INH SCH ×2 (06:39→19:33)
[2022-07-11 07:10] LABS: Anion Gap 15 mmol/L (10-20); BUN (Urea Nitrogen) 34 mg/dL (9.8-20.1); Calc. Creatinine Clearance 34 mL/min (70-130); Calcium 8.8 mg/dL (7.8-10.44); Carbon Dioxide 20 mmol/L (23-31); Chloride 107 mmol/L (98-107); Estimated GFR 44; Glucose 111 mg/dL (83-110); Potassium 4.6 mmol/L (3.5-5.1); Sodium 137 mmol/L (136-145)
[2022-07-11] MEDS: Aspirin 81 mg Enteric Coated Tablet PO SCH (08:37)
[2022-07-11] MEDS: Cefdinir 300 MG CAP PO SCH ×2 (08:37→20:59)
[2022-07-11] MEDS: Heparin 5,000 UNITS/ML VIAL SC SCH ×2 (08:37→21:04)
[2022-07-11] MEDS: Cholecalciferol 1,000 UNITS (25 MCG) TAB PO SCH (08:37)
[2022-07-11] MEDS: Losartan 25 MG TAB PO SCH ×2 (08:37→20:59)
[2022-07-11] MEDS: methylPREDNISolone Sod Succ 40 MG VIAL IVP SCH ×2 (08:37→21:04)
[2022-07-11] MEDS: Atorvastatin Calcium 10 MG TAB PO SCH (20:59)
[2022-07-11] MEDS: Loratadine 10 MG TAB PO SCH (20:59)
[2022-07-11] MEDS: Folic Acid 1 MG TAB PO SCH (21:03)
[2022-07-12] MEDS: Mometasone 100 MCG/PUFF (1 INHALER) INH SCH ×2 (06:47→19:45)
[2022-07-12] MEDS: Levothyroxine Sodium 88 MCG TAB PO SCH (06:48)
[2022-07-12 07:59] LABS: Anion Gap 15 mmol/L (10-20); BUN (Urea Nitrogen) 36 mg/dL (9.8-20.1); Calc. Creatinine Clearance 35 mL/min (70-130); Calcium 9.2 mg/dL (7.8-10.44); Carbon Dioxide 21 mmol/L (23-31); Chloride 104 mmol/L (98-107); Estimated GFR 46; Glucose 96 mg/dL (83-110); Potassium 4.9 mmol/L (3.5-5.1); Sodium 135 mmol/L (136-145)
[2022-07-12 08:33] LABS: Anisocytosis SLIGHT = 6-15 cells (100X) (0-5/hpf); Band 5 % (5-11); Hemoglobin 9.2 g/dL (12.0-16.0); Hypochromia SLIGHT = 6-15 cells (100X) (0-5/hpf); Lymphocytes 5 % (21-51); MDiff Complete? YES; Mean Corpuscular HGB CONC 31.3 g/dL (32.0-36.0); Mean Corpuscular Hemoglobin 19.9 pg (27.0-31.0); Mean Corpuscular Volume 63.5 fL (78.0-98.0); Mean Platelet Volume 6.4 fL (7.4-10.4); Metamyelocyte 2 % (0-0); Microcytosis MODERATE=15-30 cells (100X) (0-5/hpf); Monocytes 1 % (0-10); Myelocyte 6 % (0-0); Neutrophil 78 % (42-75); Platelet Count 341 thou/uL (130-400); Platelet Morphology Comment Appears Adequate; Polychromasia MODERATE = 3-4 cells (100X) (0-2/hpf); RBC Distribution Width 19.9 % (11.5-14.5); Reactive Lymphocytes 3 % (0-10); Red Blood Cell (RBC) Count 4.64 mill/uL (4.20-5.40); Target Cells SLIGHT = 2-5 cells (100X) (0-1/hpf); Tear Drops SLIGHT = 2-5 cells (100X) (0-1/hpf); White Blood Cell (WBC) Count 20.8 thou/uL (4.8-10.8)
[2022-07-12] MEDS: Heparin 5,000 UNITS/ML VIAL SC SCH ×2 (08:52→21:41)
[2022-07-12] MEDS: methylPREDNISolone Sod Succ 40 MG VIAL IVP SCH (08:52)
[2022-07-12] MEDS: Cefdinir 300 MG CAP PO SCH ×2 (08:53→21:41)
[2022-07-12] MEDS: Losartan 25 MG TAB PO SCH ×2 (08:53→21:40)
[2022-07-12] MEDS: Aspirin 81 mg Enteric Coated Tablet PO SCH (08:53)
[2022-07-12] MEDS: Cholecalciferol 1,000 UNITS (25 MCG) TAB PO SCH (08:53)
[2022-07-12] MEDS ORDERED: methylPREDNISolone Sod Succ 40 MG VIAL IVP SCH (21:00)
[2022-07-12] MEDS: Atorvastatin Calcium 10 MG TAB PO SCH (21:40)
[2022-07-12] MEDS: Loratadine 10 MG TAB PO SCH (21:41)
[2022-07-12] MEDS: Folic Acid 1 MG TAB PO SCH (21:41)
[2022-07-12] MEDS: Cepastat Lozenges 1 LOZ PO PRN (21:50)
[2022-07-13] MEDS: Levothyroxine Sodium 88 MCG TAB PO SCH (05:27)
[2022-07-13 06:58] LABS: Hemoglobin 9.5 g/dL (12.0-16.0); Mean Corpuscular HGB CONC 31.3 g/dL (32.0-36.0); Mean Corpuscular Volume 63.7 fL (78.0-98.0); Mean Platelet Volume 6.6 fL (7.4-10.4); Platelet Count 323 thou/uL (130-400); RBC Distribution Width 19.4 % (11.5-14.5); Red Blood Cell (RBC) Count 4.73 mill/uL (4.20-5.40); White Blood Cell (WBC) Count 21.8 thou/uL (4.8-10.8)
[2022-07-13 07:26] LABS: Anion Gap 14 mmol/L (10-20); BUN (Urea Nitrogen) 41 mg/dL (9.8-20.1); Calc. Creatinine Clearance 30 mL/min (70-130); Calcium 9.1 mg/dL (7.8-10.44); Carbon Dioxide 22 mmol/L (23-31); Chloride 103 mmol/L (98-107); Estimated GFR 38; Glucose 117 mg/dL (83-110); Sodium 134 mmol/L (136-145)
[2022-07-13] MEDS: Mometasone 100 MCG/PUFF (1 INHALER) INH SCH ×2 (07:47→18:18)
[2022-07-13] MEDS ORDERED: predniSONE 20 MG TAB PO SCH (08:00)
[2022-07-13] MEDS: Losartan 25 MG TAB PO SCH ×2 (08:24→21:29)
[2022-07-13] MEDS: Heparin 5,000 UNITS/ML VIAL SC SCH ×2 (08:24→21:30)
[2022-07-13] MEDS: Cholecalciferol 1,000 UNITS (25 MCG) TAB PO SCH (08:24)
[2022-07-13] MEDS: Aspirin 81 mg Enteric Coated Tablet PO SCH (08:25)
[2022-07-13] MEDS: Cefdinir 300 MG CAP PO SCH ×2 (08:25→21:28)
[2022-07-13 08:51] LABS: Band 8 % (5-11); Hypochromia MODERATE=16-30 cells (100X) (0-5/hpf); Lymphocytes 9 % (21-51); MDiff Complete? YES; Metamyelocyte 5 % (0-0); Microcytosis MODERATE=15-30 cells (100X) (0-5/hpf); Monocytes 3 % (0-10); Myelocyte 5 % (0-0); Neutrophil 70 % (42-75); Nucleated RBC 1 % (0); Ovalocytes SLIGHT = 2-5 cells (100X) (0-1/hpf); Platelet Morphology Comment Appears Adequate; Polychromasia SLIGHT = 2-3 cells (100X) (0-2/hpf); Tear Drops SLIGHT = 2-5 cells (100X) (0-1/hpf)
[2022-07-13] MEDS: Sodium Chloride 0.9% 500 ML IV SCH ×2 (10:30→21:30)
[2022-07-13] MEDS: Loratadine 10 MG TAB PO SCH (21:29)
[2022-07-13] MEDS: Folic Acid 1 MG TAB PO SCH (21:29)
[2022-07-13] MEDS: Mirtazapine 15 MG TAB PO SCH (21:29)
[2022-07-13] MEDS: Atorvastatin Calcium 10 MG TAB PO SCH (21:29)
[2022-07-14] MEDS: Levothyroxine Sodium 88 MCG TAB PO SCH (06:38)
[2022-07-14 06:43] LABS: Anion Gap 14 mmol/L (10-20); BUN (Urea Nitrogen) 40 mg/dL (9.8-20.1); Calc. Creatinine Clearance 31 mL/min (70-130); Calcium 9.4 mg/dL (7.8-10.44); Carbon Dioxide 20 mmol/L (23-31); Chloride 107 mmol/L (98-107); Estimated GFR 40; Glucose 72 mg/dL (83-110); Potassium 4.4 mmol/L (3.5-5.1); Sodium 137 mmol/L (136-145)
[2022-07-14] MEDS: Mometasone 100 MCG/PUFF (1 INHALER) INH SCH ×2 (07:04→18:56)
[2022-07-14 07:19] LABS: Hemoglobin 10.6 g/dL (12.0-16.0); Mean Corpuscular HGB CONC 30.5 g/dL (32.0-36.0); Mean Corpuscular Hemoglobin 19.8 pg (27.0-31.0); Mean Corpuscular Volume 64.8 fl (78.0-98.0); Mean Platelet Volume 6.2 fL (7.4-10.4); Platelet Count 308 thou/uL (130-400); Red Blood Cell (RBC) Count 5.35 mill/uL (4.20-5.40); White Blood Cell (WBC) Count 24.4 thou/uL (4.8-10.8)
[2022-07-14 07:54] LABS: Band 9 % (5-11); Hypochromia SLIGHT = 6-15 cells (100X) (0-5/hpf); Lymphocytes 7 % (21-51); MDiff Complete? YES; Metamyelocyte 2 % (0-0); Microcytosis MODERATE=15-30 cells (100X) (0-5/hpf); Monocytes 6 % (0-10); Myelocyte 2 % (0-0); Neutrophil 74 % (42-75); Nucleated RBC 2 % (0); Platelet Morphology Comment Appears Adequate; Polychromasia MODERATE = 3-4 cells (100X) (0-2/hpf); Schistocytes SLIGHT = 2-5 cells (100X) (0-1/hpf); Tear Drops SLIGHT = 2-5 cells (100X) (0-1/hpf)
[2022-07-14] MEDS ORDERED: predniSONE 20 MG TAB PO SCH (08:00)
[2022-07-14] MEDS: Sodium Chloride 0.9% 500 ML IV SCH (09:00)
[2022-07-14] MEDS: Cholecalciferol 1,000 UNITS (25 MCG) TAB PO SCH (09:01)
[2022-07-14] MEDS: Losartan 25 MG TAB PO SCH ×2 (09:02→20:47)
[2022-07-14] MEDS: Cefdinir 300 MG CAP PO SCH ×2 (09:03→20:46)
[2022-07-14] MEDS: Aspirin 81 mg Enteric Coated Tablet PO SCH (09:04)
[2022-07-14] MEDS: Heparin 5,000 UNITS/ML VIAL SC SCH ×2 (09:04→20:47)
[2022-07-14] MEDS ORDERED: guaiFENesin ER 600 MG TAB PO SCH ×2 (09:17→09:30)
[2022-07-14] MEDS ORDERED: Acetylcysteine 20% 200 MG/ML 30 ML VIAL INH SCH (09:30)
[2022-07-14] MEDS ORDERED: Furosemide 40 MG/4 ML VIAL SLOW IVP SCH (09:30)
[2022-07-14 16:23] VITALS: BMI 25.2
[2022-07-14] MEDS: Atorvastatin Calcium 10 MG TAB PO SCH (20:47)
[2022-07-14] MEDS: Folic Acid 1 MG TAB PO SCH (20:47)
[2022-07-14] MEDS: Mirtazapine 15 MG TAB PO SCH (20:47)
[2022-07-14] MEDS: Loratadine 10 MG TAB PO SCH (20:47)
[2022-07-14] MEDS: guaiFENesin ER 600 MG TAB PO SCH (20:47)
[2022-07-15] MEDS: Levothyroxine Sodium 88 MCG TAB PO SCH (05:26)
[2022-07-15] MEDS: Mometasone 100 MCG/PUFF (1 INHALER) INH SCH ×2 (06:56→18:26)
[2022-07-15 07:01] LABS: Hemoglobin 9.4 g/dL (12.0-16.0); Mean Corpuscular HGB CONC 30.7 g/dL (32.0-36.0); Mean Corpuscular Hemoglobin 19.8 pg (27.0-31.0); Mean Corpuscular Volume 64.6 fl (78.0-98.0); Mean Platelet Volume 6.7 fL (7.4-10.4); Platelet Count 272 thou/uL (130-400); RBC Distribution Width 21.8 % (11.5-14.5); Red Blood Cell (RBC) Count 4.75 mill/uL (4.20-5.40); White Blood Cell (WBC) Count 27.5 thou/uL (4.8-10.8)
[2022-07-15 07:53] LABS: Anisocytosis MODERATE=16-30 cells (100X) (0-5/hpf); Band 4 % (5-11); Hypochromia SLIGHT = 6-15 cells (100X) (0-5/hpf); Lymphocytes 11 % (21-51); MDiff Complete? YES; Metamyelocyte 2 % (0-0); Monocytes 4 % (0-10); Myelocyte 1 % (0-0); Neutrophil 78 % (42-75); Nucleated RBC 1 % (0); Platelet Morphology Comment Appears Adequate; Polychromasia SLIGHT = 2-3 cells (100X) (0-2/hpf); Target Cells SLIGHT = 2-5 cells (100X) (0-1/hpf); Tear Drops MODERATE= 6-15 cells (100X) (0-1/hpf)
[2022-07-15] MEDS: Heparin 5,000 UNITS/ML VIAL SC SCH ×2 (08:48→20:24)
[2022-07-15] MEDS: Cefdinir 300 MG CAP PO SCH ×2 (08:48→20:23)
[2022-07-15] MEDS: predniSONE 20 MG TAB PO SCH (08:49)
[2022-07-15] MEDS: Cholecalciferol 1,000 UNITS (25 MCG) TAB PO SCH (08:49)
[2022-07-15] MEDS: Aspirin 81 mg Enteric Coated Tablet PO SCH (08:49)
[2022-07-15] MEDS: guaiFENesin ER 600 MG TAB PO SCH ×2 (08:49→20:23)
[2022-07-15] MEDS: Losartan 25 MG TAB PO SCH ×2 (08:51→20:23)
[2022-07-15 09:47] LABS: Anion Gap 18 mmol/L (10-20); BUN (Urea Nitrogen) 55 mg/dL (9.8-20.1); Calc. Creatinine Clearance 19 mL/min (70-130); Calcium 9.2 mg/dL (7.8-10.44); Carbon Dioxide 17 mmol/L (23-31); Chloride 106 mmol/L (98-107); Estimated GFR 22; Glucose 100 mg/dL (83-110); Potassium 4.5 mmol/L (3.5-5.1); Sodium 136 mmol/L (136-145)
[2022-07-15] MEDS: Albumin 25% 25 GM/100 ML BOT IVPB SCH ×2 (12:52→17:18)
[2022-07-15] MEDS: Loratadine 10 MG TAB PO SCH (20:23)
[2022-07-15] MEDS: Mirtazapine 15 MG TAB PO SCH (20:23)
[2022-07-15] MEDS: Atorvastatin Calcium 10 MG TAB PO SCH (20:23)
[2022-07-15] MEDS: Folic Acid 1 MG TAB PO SCH (20:23)
[2022-07-16] MEDS: Albumin 25% 25 GM/100 ML BOT IVPB SCH ×2 (00:35→06:00)
[2022-07-16] MEDS: Levothyroxine Sodium 88 MCG TAB PO SCH (06:00)
[2022-07-16] MEDS: Mometasone 100 MCG/PUFF (1 INHALER) INH SCH (06:44)
[2022-07-16 06:47] LABS: #Eosinphils 0.1 thou/uL (0.0-0.7); #Lymphocytes 1.5 thou/uL (1.20-3.40); #Monocytes 0.8 thou/uL (0.11-0.59); #Neutrophils 11.8 thou/uL (1.40-6.50); %Basophils 0.1 % (0.0-1.0); %Eosinophils 0.8 % (0.0-10.0); %Lymphocytes 10.3 % (21.0-51.0); %Monocytes 5.7 % (0.0-10.0); Hemoglobin 7.4 g/dL (12.0-16.0); Mean Corpuscular Hemoglobin 20.7 pg (27.0-31.0); Mean Corpuscular Volume 64.5 fl (78.0-98.0); Mean Platelet Volume 6.6 fL (7.4-10.4); Platelet Count 202 thou/uL (130-400); RBC Distribution Width 20.1 % (11.5-14.5); Red Blood Cell (RBC) Count 3.56 mill/uL (4.20-5.40); White Blood Cell (WBC) Count 14.2 thou/uL (4.8-10.8)
[2022-07-16 06:59] LABS: Anion Gap 14 mmol/L (10-20); BUN (Urea Nitrogen) 58 mg/dL (9.8-20.1); Calc. Creatinine Clearance 22 mL/min (70-130); Calcium 10.1 mg/dL (7.8-10.44); Carbon Dioxide 21 mmol/L (23-31); Chloride 105 mmol/L (98-107); Estimated GFR 27; Glucose 92 mg/dL (83-110); Potassium 4.3 mmol/L (3.5-5.1); Sodium 136 mmol/L (136-145)
[2022-07-16] MEDS: Aspirin 81 mg Enteric Coated Tablet PO SCH (08:27)
[2022-07-16] MEDS: Losartan 25 MG TAB PO SCH (08:28)
[2022-07-16] MEDS: Heparin 5,000 UNITS/ML VIAL SC SCH ×2 (08:28→20:05)
[2022-07-16] MEDS: predniSONE 20 MG TAB PO SCH (08:28)
[2022-07-16] MEDS: Cholecalciferol 1,000 UNITS (25 MCG) TAB PO SCH (08:28)
[2022-07-16] MEDS: guaiFENesin ER 600 MG TAB PO SCH ×2 (08:28→20:03)
[2022-07-16] MEDS: Cefdinir 300 MG CAP PO SCH ×2 (08:28→20:04)
[2022-07-16 13:25] LABS: Hemoglobin 8.6 g/dL (12.0-16.0); Mean Corpuscular HGB CONC 31.2 g/dL (32.0-36.0); Mean Corpuscular Hemoglobin 20.1 pg (27.0-31.0); Mean Corpuscular Volume 64.5 fl (78.0-98.0); Mean Platelet Volume 6.1 fL (7.4-10.4); Platelet Count 219 thou/uL (130-400); RBC Distribution Width 20.6 % (11.5-14.5); Red Blood Cell (RBC) Count 4.27 mill/uL (4.20-5.40); White Blood Cell (WBC) Count 24.5 thou/uL (4.8-10.8)
[2022-07-16 13:48] LABS: Anisocytosis SLIGHT = 6-15 cells (100X) (0-5/hpf); Band 2 % (5-11); Hypochromia SLIGHT = 6-15 cells (100X) (0-5/hpf); Lymphocytes 5 % (21-51); MDiff Complete? YES; Microcytosis SLIGHT = 6-15 cells (100X) (0-5/hpf); Monocytes 4 % (0-10); Neutrophil 89 % (42-75); Ovalocytes SLIGHT = 2-5 cells (100X) (0-1/hpf); Platelet Morphology Comment Appears Adequate; Poikilocytosis SLIGHT = 6-15 cells (100X) (0-5/hpf); Schistocytes SLIGHT = 2-5 cells (100X) (0-1/hpf); Tear Drops SLIGHT = 2-5 cells (100X) (0-1/hpf)
[2022-07-16] MEDS: Mometasone 200 MCG/Formoterol 5 MCG 120 PUFF INHALER INH SCH (18:48)
[2022-07-16] MEDS: Folic Acid 1 MG TAB PO SCH (20:03)
[2022-07-16] MEDS: Mirtazapine 15 MG TAB PO SCH (20:03)
[2022-07-16] MEDS: Atorvastatin Calcium 10 MG TAB PO SCH (20:05)
[2022-07-16] MEDS: Loratadine 10 MG TAB PO SCH (20:05)
[2022-07-17] MEDS: Levothyroxine Sodium 88 MCG TAB PO SCH (05:20)
[2022-07-17] MEDS: Mometasone 200 MCG/Formoterol 5 MCG 120 PUFF INHALER INH SCH ×2 (06:44→18:32)
[2022-07-17 07:08] LABS: Anion Gap 14 mmol/L (10-20); BUN (Urea Nitrogen) 58 mg/dL (9.8-20.1); Calc. Creatinine Clearance 22 mL/min (70-130); Calcium 10.4 mg/dL (7.8-10.44); Carbon Dioxide 18 mmol/L (23-31); Chloride 109 mmol/L (98-107); Estimated GFR 26; Glucose 94 mg/dL (83-110); Potassium 4.3 mmol/L (3.5-5.1); Sodium 137 mmol/L (136-145)
[2022-07-17 07:43] LABS: Hemoglobin 8.9 g/dL (12.0-16.0); Mean Corpuscular HGB CONC 31.2 g/dL (32.0-36.0); Mean Corpuscular Hemoglobin 20.4 pg (27.0-31.0); Mean Corpuscular Volume 65.6 fl (78.0-98.0); Platelet Count 238 thou/uL (130-400); RBC Distribution Width 20.4 % (11.5-14.5); Red Blood Cell (RBC) Count 4.33 mill/uL (4.20-5.40); White Blood Cell (WBC) Count 24.5 thou/uL (4.8-10.8)
[2022-07-17 07:48] LABS: #Eosinphils 0.1 thou/uL (0.0-0.7); #Lymphocytes 1.7 thou/uL (1.20-3.40); #Monocytes 1.7 thou/uL (0.11-0.59); #Neutrophils 20.9 thou/uL (1.40-6.50); %Basophils 0.1 % (0.0-1.0); %Eosinophils 0.3 % (0.0-10.0); %Neutrophils 85.7 % (42.0-75.0); Band 3 % (5-11); Hypochromia MODERATE=16-30 cells (100X) (0-5/hpf); Lymphocytes 10 % (21-51); MDiff Complete? YES; Microcytosis MODERATE=15-30 cells (100X) (0-5/hpf); Monocytes 5 % (0-10); Neutrophil 82 % (42-75); Ovalocytes SLIGHT = 2-5 cells (100X) (0-1/hpf); Platelet Morphology Comment Appears Adequate; Polychromasia SLIGHT = 2-3 cells (100X) (0-2/hpf); Tear Drops SLIGHT = 2-5 cells (100X) (0-1/hpf)
[2022-07-17] MEDS: Cefdinir 300 MG CAP PO SCH ×2 (07:57→19:53)
[2022-07-17] MEDS: Aspirin 81 mg Enteric Coated Tablet PO SCH (07:57)
[2022-07-17] MEDS: predniSONE 20 MG TAB PO SCH (07:58)
[2022-07-17] MEDS: Cholecalciferol 1,000 UNITS (25 MCG) TAB PO SCH (07:58)
[2022-07-17] MEDS: Heparin 5,000 UNITS/ML VIAL SC SCH ×2 (07:58→19:53)
[2022-07-17] MEDS: guaiFENesin ER 600 MG TAB PO SCH ×2 (07:58→19:54)
[2022-07-17] MEDS: Atorvastatin Calcium 10 MG TAB PO SCH (19:54)
[2022-07-17] MEDS: Loratadine 10 MG TAB PO SCH (19:54)
[2022-07-17] MEDS: Mirtazapine 15 MG TAB PO SCH (19:54)
[2022-07-17] MEDS: Folic Acid 1 MG TAB PO SCH (19:54)
[2022-07-18] MEDS ORDERED: Sodium Chloride 0.9% 1,000 ML IV SCH (00:15)
[2022-07-18] MEDS: Levothyroxine Sodium 88 MCG TAB PO SCH (05:31)
[2022-07-18 06:22] LABS: #Eosinphils 0.1 thou/uL (0.0-0.7); #Lymphocytes 1.8 thou/uL (1.20-3.40); #Monocytes 1.3 thou/uL (0.11-0.59); #Neutrophils 13.7 thou/uL (1.40-6.50); %Basophils 0.1 % (0.0-1.0); %Eosinophils 0.6 % (0.0-10.0); %Lymphocytes 10.5 % (21.0-51.0); %Monocytes 7.9 % (0.0-10.0); Hemoglobin 8.1 g/dL (12.0-16.0); Mean Corpuscular HGB CONC 30.2 g/dL (32.0-36.0); Mean Corpuscular Hemoglobin 19.7 pg (27.0-31.0); Mean Corpuscular Volume 65.2 fl (78.0-98.0); Mean Platelet Volume 7.8 fL (7.4-10.4); Platelet Count 214 thou/uL (130-400); RBC Distribution Width 20.3 % (11.5-14.5); Red Blood Cell (RBC) Count 4.09 mill/uL (4.20-5.40); White Blood Cell (WBC) Count 16.9 thou/uL (4.8-10.8)
[2022-07-18 06:26] LABS: Anion Gap 13 mmol/L (10-20); BUN (Urea Nitrogen) 61 mg/dL (9.8-20.1); Calc. Creatinine Clearance 22 mL/min (70-130); Calcium 10.2 mg/dL (7.8-10.44); Carbon Dioxide 19 mmol/L (23-31); Chloride 109 mmol/L (98-107); Estimated GFR 26; Glucose 99 mg/dL (83-110); Potassium 4.3 mmol/L (3.5-5.1); Sodium 137 mmol/L (136-145)
[2022-07-18] MEDS: Mometasone 200 MCG/Formoterol 5 MCG 120 PUFF INHALER INH SCH ×2 (07:06→18:26)
[2022-07-18] MEDS: predniSONE 20 MG TAB PO SCH (07:56)
[2022-07-18] MEDS: Heparin 5,000 UNITS/ML VIAL SC SCH ×2 (07:56→20:11)
[2022-07-18] MEDS: Aspirin 81 mg Enteric Coated Tablet PO SCH (07:56)
[2022-07-18] MEDS: Cholecalciferol 1,000 UNITS (25 MCG) TAB PO SCH (07:57)
[2022-07-18] MEDS: guaiFENesin ER 600 MG TAB PO SCH ×2 (07:57→20:11)
[2022-07-18] MEDS: Guaifenesin DM 100-10/5 ML UDCUP PO PRN (14:30)
[2022-07-18] MEDS: Sodium Chloride 0.9% 1,000 ML IV SCH (15:14)
[2022-07-18] MEDS: Folic Acid 1 MG TAB PO SCH (20:11)
[2022-07-18] MEDS: Atorvastatin Calcium 10 MG TAB PO SCH (20:11)
[2022-07-18] MEDS: Mirtazapine 15 MG TAB PO SCH (20:11)
[2022-07-18] MEDS: Loratadine 10 MG TAB PO SCH (20:11)
[2022-07-18] MEDS ORDERED: Famotidine 20 MG TAB PO SCH (21:00)
[2022-07-19] MEDS ORDERED: Calcium Carbonate 500 MG ChewTAB PO PRN (01:29)
[2022-07-19] MEDS: Sodium Chloride 0.9% 1,000 ML IV SCH ×3 (01:41→20:16)
[2022-07-19] MEDS: Levothyroxine Sodium 88 MCG TAB PO SCH (05:32)
[2022-07-19 06:41] LABS: #Eosinphils 0.2 thou/uL (0.0-0.7); #Lymphocytes 1.5 thou/uL (1.20-3.40); #Monocytes 1.4 thou/uL (0.11-0.59); #Neutrophils 15.1 thou/uL (1.40-6.50); %Basophils 0.1 % (0.0-1.0); %Lymphocytes 8.4 % (21.0-51.0); %Monocytes 7.4 % (0.0-10.0); %Neutrophils 83.2 % (42.0-75.0); Anion Gap 18 mmol/L (10-20); BUN (Urea Nitrogen) 59 mg/dL (9.8-20.1); Calc. Creatinine Clearance 24 mL/min (70-130); Calcium 11.2 mg/dL (7.8-10.44); Carbon Dioxide 18 mmol/L (23-31); Chloride 106 mmol/L (98-107); Estimated GFR 29; Glucose 84 mg/dL (83-110); Hemoglobin 9.2 g/dL (12.0-16.0); Mean Corpuscular HGB CONC 31.8 g/dL (32.0-36.0); Mean Corpuscular Hemoglobin 20.8 pg (27.0-31.0); Mean Corpuscular Volume 65.4 fl (78.0-98.0); Mean Platelet Volume 7.5 fL (7.4-10.4); Platelet Count 245 thou/uL (130-400); Potassium 4.2 mmol/L (3.5-5.1); RBC Distribution Width 19.8 % (11.5-14.5); Red Blood Cell (RBC) Count 4.39 mill/uL (4.20-5.40); Sodium 138 mmol/L (136-145); White Blood Cell (WBC) Count 18.2 thou/uL (4.8-10.8)
[2022-07-19] MEDS: Mometasone 200 MCG/Formoterol 5 MCG 120 PUFF INHALER INH SCH ×2 (07:26→18:52)
[2022-07-19] MEDS: Aspirin 81 mg Enteric Coated Tablet PO SCH (07:55)
[2022-07-19] MEDS: Heparin 5,000 UNITS/ML VIAL SC SCH ×2 (07:55→20:05)
[2022-07-19] MEDS: Cholecalciferol 1,000 UNITS (25 MCG) TAB PO SCH (07:56)
[2022-07-19] MEDS: predniSONE 20 MG TAB PO SCH (07:56)
[2022-07-19] MEDS: guaiFENesin ER 600 MG TAB PO SCH ×2 (07:56→20:05)
[2022-07-19] MEDS ORDERED: Mag-Al 1200 mg/1200 mg/30 ML UDCUP PO PRN (08:09)
[2022-07-19] MEDS: Guaifenesin DM 100-10/5 ML UDCUP PO PRN ×2 (16:07→20:09)
[2022-07-19] MEDS: Atorvastatin Calcium 10 MG TAB PO SCH (20:05)
[2022-07-19] MEDS: Loratadine 10 MG TAB PO SCH (20:05)
[2022-07-19] MEDS: Mirtazapine 15 MG TAB PO SCH (20:05)
[2022-07-19] MEDS: Folic Acid 1 MG TAB PO SCH (20:05)
[2022-07-20] MEDS: Guaifenesin DM 100-10/5 ML UDCUP PO PRN ×2 (05:29→08:14)
[2022-07-20] MEDS: Levothyroxine Sodium 88 MCG TAB PO SCH (05:29)
[2022-07-20] MEDS: Mometasone 200 MCG/Formoterol 5 MCG 120 PUFF INHALER INH SCH ×2 (07:32→18:59)
[2022-07-20] MEDS: Heparin 5,000 UNITS/ML VIAL SC SCH ×2 (08:12→21:01)
[2022-07-20] MEDS: Aspirin 81 mg Enteric Coated Tablet PO SCH (08:14)
[2022-07-20] MEDS: predniSONE 20 MG TAB PO SCH (08:14)
[2022-07-20] MEDS: guaiFENesin ER 600 MG TAB PO SCH ×2 (08:14→21:01)
[2022-07-20] MEDS: Sodium Chloride 0.9% 1,000 ML IV SCH (17:37)
[2022-07-20] MEDS: Mirtazapine 15 MG TAB PO SCH (21:01)
[2022-07-20] MEDS: Atorvastatin Calcium 10 MG TAB PO SCH (21:01)
[2022-07-20] MEDS: Folic Acid 1 MG TAB PO SCH (21:01)
[2022-07-20] MEDS: Loratadine 10 MG TAB PO SCH (21:01)
[2022-07-21] MEDS: Levothyroxine Sodium 88 MCG TAB PO SCH (06:19)
[2022-07-21 06:45] LABS: Anion Gap 15 mmol/L (10-20); BUN (Urea Nitrogen) 71 mg/dL (9.8-20.1); Calc. Creatinine Clearance 21 mL/min (70-130); Calcium 10.4 mg/dL (7.8-10.44); Carbon Dioxide 17 mmol/L (23-31); Chloride 108 mmol/L (98-107); Estimated GFR 25; Glucose 81 mg/dL (83-110); Potassium 4.7 mmol/L (3.5-5.1); Sodium 135 mmol/L (136-145)
[2022-07-21] MEDS: Mometasone 200 MCG/Formoterol 5 MCG 120 PUFF INHALER INH SCH (07:13)
[2022-07-21] MEDS: Heparin 5,000 UNITS/ML VIAL SC SCH (09:04)
[2022-07-21] MEDS: Aspirin 81 mg Enteric Coated Tablet PO SCH (09:04)
[2022-07-21] MEDS: guaiFENesin ER 600 MG TAB PO SCH (09:04)
[2022-07-21] MEDS: predniSONE 20 MG TAB PO SCH (09:04)
[2022-07-21] MEDS: Sodium Chloride 0.9% 1,000 ML IV SCH (09:06)
[2022-07-21] MEDS ORDERED: Bisacodyl 5 MG TAB PO PRN (10:42)
[2022-07-21 16:56] VITALS: BP 103/68; TEMP 97.9
== END 2022-07-21 17:09 | DRG 177 ==
LOC: T4-A 20:53
PROVIDERS: ADMIT Internal Medicine; ATTEND Internal Medicine
DX: J69.0 Pneumonitis due to inhalation of food and vomit (principal); J96.21 Acute and chronic respiratory failure with hypoxia; N18.4 Chronic kidney disease, stage 4 (severe); N17.9 Acute kidney failure, unspecified; G91.2 (Idiopathic) normal pressure hydrocephalus; J43.9 Emphysema, unspecified; I12.9 Hypertensive chronic kidney disease with stage 1 through stage 4 chronic kidney disease, or unspecified chronic kidney disease; E78.5 Hyperlipidemia, unspecified; E03.9 Hypothyroidism, unspecified; M81.0 Age-related osteoporosis without current pathological fracture; R13.12 Dysphagia, oropharyngeal phase; D56.3 Thalassemia minor; E86.9 Volume depletion, unspecified; K21.9 Gastro-esophageal reflux disease without esophagitis; D63.1 Anemia in chronic kidney disease; E83.52 Hypercalcemia; Z87.01 Personal history of pneumonia (recurrent); Z79.899 Other long term (current) drug therapy; Z79.82 Long term (current) use of aspirin; Z90.710 Acquired absence of both cervix and uterus; Z98.890 Other specified postprocedural states; Z83.6 Family history of other diseases of the respiratory system; Z82.49 Family history of ischemic heart disease and other diseases of the circulatory system; Z87.891 Personal history of nicotine dependence; Z90.49 Acquired absence of other specified parts of digestive tract; Z98.2 Presence of cerebrospinal fluid drainage device; Z99.81 Dependence on supplemental oxygen; Z79.51 Long term (current) use of inhaled steroids; Z79.890 Hormone replacement therapy
CPT/HCPCS: 36415; 71045; 71250; 74230; 80048; 80076; 81001; 82728; 83540; 84443; 85025; 85046; 87449; 87899; 94640; 94664; J0132; J0456; J0696; J1644; J1940; J2920; J2930; J3475; J3490; J7030; J7050; J7512; J7620; P9047

== ENCOUNTER 2022-09-02 08:51 | Outpatient (CLI) | payer MEDICARE | END 2022-09-02 08:52 | disposition home or self-care (01) | LOC: RAD 08:51 | PROVIDERS: ATTEND Internal Medicine Critical Care Medicine | DX: R06.00 Dyspnea, unspecified (principal) | CPT/HCPCS: 71046 ==

== ENCOUNTER → 2023-05-30 | Outpatient (CLI) | payer MEDICARE | LOC: RAD 14:10 → HS RAD 15:39 → EDSTATUS 06-23 14:09 | PROVIDERS: ATTEND Physician Assistant | DX: R06.02 Shortness of breath (principal) | CPT/HCPCS: 71046 ==

== ENCOUNTER 2023-06-04 09:36 | Outpatient (CLI) | payer MEDICARE | END 2023-06-04 09:37 | disposition home or self-care (01) | LOC: RAD 09:36 | PROVIDERS: ATTEND Nurse Practitioner Family | DX: R06.02 Shortness of breath (principal); J18.1 Lobar pneumonia, unspecified organism | CPT/HCPCS: 71046 ==

== ENCOUNTER 2023-06-06 16:39 | Inpatient (IN) | payer MEDICARE ==
[2023-06-06] MEDS ORDERED: Albuterol 2.5 MG/0.5 ML NEB ONE (17:12)
[2023-06-06] MEDS ORDERED: Ipratropium/Albuterol 3 ML NEB ONE (17:12)
[2023-06-06 17:19] LABS: Actual Bicarbonate (HCO3a) 18.4 mEq/L (22-28); Analyzer IN Cardio ER; Base Excess (BEa) -4.4 mEq/L (-2.0 to +3.0); CO2 Tension 26.5 mmHg (35.0-45.0); Calcium, Ionized (arterial) 1.19 mmol/L (1.12-1.30); Carboxyhemoglobin (COHb) 0.3 gm% (0.0-3.0); Hematocrit-ABG 28 % (36.0-47.0); Hemoglobin (Hb) 9.4 g/dL (12.0-16.0); O2 Tension (PaO2), arterial 95.4 mmHg (> 60.0); Potassium - ABG Lab 4.06 mmol/L (3.70-5.30)
[2023-06-06 17:20] LABS: Puncture Site RRA
[2023-06-06] MEDS ORDERED: Dexamethasone 10 MG/ML VIAL ONE (17:20)
[2023-06-06] MEDS ORDERED: LevoFLOXacin 750 mg/D5W 150 ml Premix Bag ONE (17:20)
[2023-06-06] MEDS ORDERED: Magnesium 2 GM/50 ML BAG (IN WATER) ONE (17:20)
[2023-06-06 17:21] LABS: ALV-art Gradient 128.155 mmHg (0-20)
[2023-06-06 17:32] LABS: #Basophils 0.1 thou/uL (0.0-0.2); #Eosinphils 0.2 thou/uL (0.0-0.7); #Monocytes 0.6 thou/uL (0.11-0.59); #Neutrophils 6.3 thou/uL (1.40-6.50); %Basophils 0.7 % (0.0-1.0); %Eosinophils 2.4 % (0.0-10.0); %Lymphocytes 17.7 % (21.0-51.0); %Monocytes 6.8 % (0.0-10.0); %Neutrophils 68.2 % (42.0-75.0); Hemoglobin 9.3 g/dL (12.0-16.0); Mean Corpuscular HGB CONC 32.1 g/dL (32.0-36.0); Mean Corpuscular Hemoglobin 20.1 pg (27.0-31.0); Mean Corpuscular Volume 62.6 fl (78.0-98.0); Mean Platelet Volume 9.9 fL (7.4-10.4); Platelet Count 295 10x3/uL (130-400); RBC Distribution Width 15.6 % (11.5-14.5); Red Blood Cell (RBC) Count 4.63 mill/uL (4.20-5.40); White Blood Cell (WBC) Count 9.2 10x3/uL (4.8-10.8)
[2023-06-06 17:37] LABS: Delete Auto Diff?? NO
[2023-06-06 17:58] LABS: Troponin I Less than 0.010 ng/mL (< 0.028)
[2023-06-06 17:59] LABS: Microcytosis SLIGHT = 6-15 cells HPF (0-5); Platelet Adequacy Comment Platelets Normal; Polychromasia SLIGHT = 2-3 cells HPF (0-2); Smudge Cells 30.7 %
[2023-06-06 18:01] LABS: ALT (SGPT) 31 U/L (8-55); AST (SGOT) 25 U/L (5-34); Albumin 3.7 g/dL (3.4-4.8); Alkaline Phosphatase 129 U/L (40-110); Anion Gap 17 mmol/L (10-20); BUN (Urea Nitrogen) 28 mg/dL (9.8-20.1); Calc. Creatinine Clearance 0 mL/min (70-130); Calcium 9.6 mg/dL (7.8-10.44); Carbon Dioxide 18 mmol/L (23-31); Chloride 108 mmol/L (98-107); Estimated GFR 26; Globulin 3.8 g/dL (2.4-3.5); Glucose 101 mg/dL (83-110); Lipase 34 U/L (8-78); Protein, Total 7.5 g/dL (5.8-8.1); Sodium 139 mmol/L (136-145)
[2023-06-06] MEDS ORDERED: Ondansetron ODT 4 MG TAB PO PRN (18:27)
[2023-06-06] MEDS ORDERED: Ondansetron PF 4 MG/2 ML Vial IVP PRN (18:27)
[2023-06-06] MEDS ORDERED: Acetaminophen 325 MG TAB PO PRN (18:27)
[2023-06-06] MEDS ORDERED: LevoFLOXacin 750 mg/D5W 750 MG in Premix Bag 1 BAG IVPB SCH (18:30)
[2023-06-06 19:03] LABS: SARS-CoV-2 NAA Rapid Test Not Detected (NotDetected)
[2023-06-06] MEDS ORDERED: Sodium Chloride 0.9% 1,000 ML IV SCH (19:45)
[2023-06-06] MEDS: guaiFENesin ER 600 MG TAB PO SCH (21:25)
[2023-06-06] MEDS: Famotidine 20 MG TAB PO SCH (21:25)
[2023-06-06] MEDS: Benzonatate 100 MG CAP PO PRN (22:50)
[2023-06-06] MEDS: Ipratropium/Albuterol 3 ML NEB NEB PRN (23:30)
[2023-06-07 00:02] VITALS: BMI 22.6
[2023-06-07] MEDS: Levothyroxine Sodium 88 MCG TAB PO SCH (05:07)
[2023-06-07] MEDS: Benzonatate 100 MG CAP PO PRN ×3 (05:09→14:40)
[2023-06-07 07:04] LABS: Hematocrit 25.5 % (36.0-47.0); Hemoglobin 7.7 g/dL (12.0-16.0); Mean Corpuscular HGB CONC 30.2 g/dL (32.0-36.0); Mean Corpuscular Hemoglobin 19.8 pg (27.0-31.0); Mean Platelet Volume 10.6 fL (7.4-10.4); Platelet Count 281 10x3/uL (130-400); RBC Distribution Width 15.9 % (11.5-14.5); Red Blood Cell (RBC) Count 3.89 mill/uL (4.20-5.40); White Blood Cell (WBC) Count 6.3 10x3/uL (4.8-10.8)
[2023-06-07 07:27] LABS: Anion Gap 13 mmol/L (10-20); BUN (Urea Nitrogen) 27 mg/dL (9.8-20.1); Calc. Creatinine Clearance 22 mL/min (70-130); Calcium 8.7 mg/dL (7.8-10.44); Carbon Dioxide 18 mmol/L (23-31); Chloride 111 mmol/L (98-107); Estimated GFR 31; Glucose 170 mg/dL (83-110); Potassium 4.6 mmol/L (3.5-5.1); Sodium 137 mmol/L (136-145)
[2023-06-07 07:28] LABS: Delete Auto Diff?? YES; Mean Corpuscular Volume 65.6 fl (78.0-98.0)
[2023-06-07 07:29] LABS: Manual Diff?? YES
[2023-06-07] MEDS: Ipratropium/Albuterol 3 ML NEB NEB PRN (07:41)
[2023-06-07] MEDS: Mometasone 200 MCG/Formoterol 5 MCG 120 PUFF INHALER INH SCH ×2 (07:43→18:42)
[2023-06-07 08:03] LABS: Band 8 % (5-11); CellaVision Operator ID LAB.GE; Elliptocytes SLIGHT = 2-5 cells HPF (0-1); Eosinophils 1 % (0-10); Hypochromia SLIGHT = 6-15 cells HPF (0-5); Lymphocytes 2 % (21-51); Metamyelocyte 2 % (0-0); Microcytosis MODERATE=15-30 cells HPF (0-5); Myelocyte 1 % (0-0); Neutrophil 85 % (42-75); Platelet Adequacy Comment Platelets Normal; Polychromasia SLIGHT = 2-3 cells HPF (0-2); Tear Drops SLIGHT = 2-5 cells HPF (0-1); Total Cell Count 100
[2023-06-07] MEDS: guaiFENesin ER 600 MG TAB PO SCH ×2 (08:22→20:08)
[2023-06-07] MEDS: Heparin 5,000 UNITS/ML VIAL SC SCH ×3 (08:22→20:08)
[2023-06-07] MEDS: Dexamethasone 10 MG/ML VIAL SLOW IVP SCH (08:22)
[2023-06-07] MEDS: Famotidine 20 MG TAB PO SCH (20:08)
[2023-06-08] MEDS: Levothyroxine Sodium 88 MCG TAB PO SCH (05:20)
[2023-06-08] MEDS: Mometasone 200 MCG/Formoterol 5 MCG 120 PUFF INHALER INH SCH ×2 (07:22→18:54)
[2023-06-08] MEDS: Dexamethasone 10 MG/ML VIAL SLOW IVP SCH (09:21)
[2023-06-08] MEDS: Heparin 5,000 UNITS/ML VIAL SC SCH ×3 (09:21→20:07)
[2023-06-08] MEDS: guaiFENesin ER 600 MG TAB PO SCH ×2 (09:21→20:07)
[2023-06-08] MEDS: Benzonatate 100 MG CAP PO PRN (10:48)
[2023-06-08] MEDS: Ipratropium/Albuterol 3 ML NEB NEB PRN (14:12)
[2023-06-08] MEDS ORDERED: LevoFLOXacin 500 mg/D5W 500 MG in Premix Bag 1 BAG IVPB SCH (18:00)
[2023-06-08] MEDS: Famotidine 20 MG TAB PO SCH (20:07)
[2023-06-09 00:29] VITALS: TEMP 98.3
[2023-06-09] MEDS: Levothyroxine Sodium 88 MCG TAB PO SCH (05:18)
[2023-06-09 07:04] LABS: Hemoglobin 8.8 g/dL (12.0-16.0); Mean Corpuscular HGB CONC 31.4 g/dL (32.0-36.0); Mean Corpuscular Hemoglobin 20.3 pg (27.0-31.0); Mean Corpuscular Volume 64.5 fl (78.0-98.0); Platelet Count 380 10x3/uL (130-400); RBC Distribution Width 16.3 % (11.5-14.5); Red Blood Cell (RBC) Count 4.34 mill/uL (4.20-5.40); White Blood Cell (WBC) Count 11.4 10x3/uL (4.8-10.8)
[2023-06-09] MEDS: Mometasone 200 MCG/Formoterol 5 MCG 120 PUFF INHALER INH SCH (07:09)
[2023-06-09] MEDS: Ipratropium/Albuterol 3 ML NEB NEB SCH ×2 (07:10→13:23)
[2023-06-09 07:37] LABS: Delete Auto Diff?? YES; Manual Diff?? YES
[2023-06-09 07:50] LABS: Anion Gap 13 mmol/L (10-20); BUN (Urea Nitrogen) 35 mg/dL (9.8-20.1); Calc. Creatinine Clearance 25 mL/min (70-130); Calcium 9.4 mg/dL (7.8-10.44); Carbon Dioxide 16 mmol/L (23-31); Chloride 110 mmol/L (98-107); Estimated GFR 36; Glucose 98 mg/dL (83-110); Sodium 135 mmol/L (136-145)
[2023-06-09 08:22] LABS: Band 5 % (5-11); Burr Cells SLIGHT = 2-5 cells HPF (0-1); CellaVision Operator ID LAB.GE; Hypochromia SLIGHT = 6-15 cells HPF (0-5); Lymphocytes 15 % (21-51); Microcytosis MODERATE=15-30 cells HPF (0-5); Monocytes 5 % (0-10); Myelocyte 2 % (0-0); Neutrophil 71 % (42-75); Nucleated RBC (Manual Ct) 1 % (0); Ovalocytes SLIGHT = 2-5 cells HPF (0-1); Platelet Adequacy Comment Platelets Normal; Polychromasia SLIGHT = 2-3 cells HPF (0-2); Reactive Lymphocytes 1 % (0-10); Schistocytes SLIGHT = 2-5 cells HPF (0-1); Tear Drops SLIGHT = 2-5 cells HPF (0-1); Total Cell Count 101
[2023-06-09 09:21] VITALS: BP 121/71
[2023-06-09] MEDS ORDERED: Dexamethasone 10 MG/ML VIAL SLOW IVP SCH (09:45)
[2023-06-09] MEDS: guaiFENesin ER 600 MG TAB PO SCH (09:47)
[2023-06-09] MEDS: Heparin 5,000 UNITS/ML VIAL SC SCH ×2 (09:47→14:37)
[2023-06-09] MEDS: Benzonatate 100 MG CAP PO PRN (09:47)
[2023-06-09] MEDS ORDERED: LevoFLOXacin 500 MG TAB PO SCH (18:00)
[2023-06-10] MEDS ORDERED: predniSONE 20 MG TAB PO SCH (08:00)
== END 2023-06-09 17:51 | disposition home or self-care (01) | DRG 193 ==
LOC: ERS 16:39 → T4-B 18:23
PROVIDERS: ADMIT Family Medicine; ATTEND Internal Medicine
PROC: 4A033R1 Measurement of Arterial Saturation, Peripheral, Percutaneous Approach (ICD-10-PCS; principal; 2023-06-06)
DX: J18.9 Pneumonia, unspecified organism (principal); J96.21 Acute and chronic respiratory failure with hypoxia; J44.1 Chronic obstructive pulmonary disease with (acute) exacerbation; N17.9 Acute kidney failure, unspecified; N18.30 Chronic kidney disease, stage 3 unspecified; I12.9 Hypertensive chronic kidney disease with stage 1 through stage 4 chronic kidney disease, or unspecified chronic kidney disease; E78.5 Hyperlipidemia, unspecified; E03.9 Hypothyroidism, unspecified; Z82.49 Family history of ischemic heart disease and other diseases of the circulatory system; Z79.82 Long term (current) use of aspirin; Z79.899 Other long term (current) drug therapy; Z90.710 Acquired absence of both cervix and uterus; F41.9 Anxiety disorder, unspecified; Z87.891 Personal history of nicotine dependence; D56.3 Thalassemia minor; D63.1 Anemia in chronic kidney disease; Z20.822 Contact with and (suspected) exposure to COVID-19
CPT/HCPCS: 36415; 36600; 71045; 80048; 80053; 82805; 83605; 83690; 83880; 84484; 85025; 87040; 93005; 94640; 96365; 96367; 96375; J1100; J1644; J1956; J3475; J7050; J7611; J7620; U0002

== ENCOUNTER 2023-08-05 09:45 | Outpatient (CLI) | payer MEDICARE | END 2023-08-05 09:46 | disposition home or self-care (01) | LOC: RAD 09:45 | PROVIDERS: ATTEND Internal Medicine Critical Care Medicine | DX: R06.00 Dyspnea, unspecified (principal); R91.8 Other nonspecific abnormal finding of lung field | CPT/HCPCS: 71046 ==

== ENCOUNTER 2023-08-13 15:10 | Inpatient (IN) | payer MEDICARE ==
[2023-08-13] MEDS ORDERED: LevoFLOXacin 750 mg/D5W 150 ml Premix Bag ONE (15:37)
[2023-08-13] MEDS ORDERED: Cefepime 2 GM VIAL ONE (15:37)
[2023-08-13] MEDS ORDERED: Sodium Chloride 0.9% 100 ML ONE (15:38)
[2023-08-13 15:40] LABS: #Monocytes 1.1 thou/uL (0.11-0.59); #Neutrophils 15.6 thou/uL (1.40-6.50); %Basophils 0.2 % (0.0-1.0); %Eosinophils 0.1 % (0.0-10.0); %Lymphocytes 2.9 % (21.0-51.0); %Monocytes 6.4 % (0.0-10.0); %Neutrophils 89.2 % (42.0-75.0); Hemoglobin 9.1 g/dL (12.0-16.0); Mean Corpuscular HGB CONC 31.4 g/dL (32.0-36.0); Mean Corpuscular Hemoglobin 20.6 pg (27.0-31.0); Mean Corpuscular Volume 65.8 fl (78.0-98.0); Platelet Count 219 10x3/uL (130-400); RBC Distribution Width 15.9 % (11.5-14.5); Red Blood Cell (RBC) Count 4.41 mill/uL (4.20-5.40); White Blood Cell (WBC) Count 17.5 10x3/uL (4.8-10.8)
[2023-08-13 15:41] LABS: Actual Bicarbonate (HCO3v) 17.2 mEq/L (22-28); Base Excess -4.7 mEq/L (-2.0 to +3.0); Chloride (VBG) 106 mmol/L (98-106); Hematocrit-VBG 31 % (36.0-47.0); Hemoglobin (Hb) 10.6 g/dL (11.7-16.1); Potassium (VBG) 3.65 mmol/L (3.70-5.30); Sodium 138 mmol/L (133-146); pH (venous) 7.491 (7.32-7.43)
[2023-08-13 16:01] LABS: ALT (SGPT) 30 U/L (8-55); AST (SGOT) 36 U/L (5-34); Albumin 3.9 g/dL (3.4-4.8); Alkaline Phosphatase 88 U/L (40-110); Anion Gap 16 mmol/L (10-20); BUN (Urea Nitrogen) 19 mg/dL (9.8-20.1); Bilirubin, Total 1.8 mg/dL (0.2-1.2); Calc. Creatinine Clearance 0 mL/min (70-130); Carbon Dioxide 18 mmol/L (23-31); Chloride 108 mmol/L (98-107); Estimated GFR 42; Globulin 3.1 g/dL (2.4-3.5); Glucose 172 mg/dL (83-110); Potassium 3.8 mmol/L (3.5-5.1); Sodium 138 mmol/L (136-145)
[2023-08-13 16:06] LABS: Troponin I Less than 0.010 ng/mL (< 0.028)
[2023-08-13 16:10] LABS: Anisocytosis SLIGHT = 6-15 cells HPF (0-5); CellaVision Operator ID LAB.MJL; Hypochromia SLIGHT = 6-15 cells HPF (0-5); Microcytosis SLIGHT = 6-15 cells HPF (0-5); Ovalocytes SLIGHT = 2-5 cells HPF (0-1); Platelet Adequacy Comment Platelets Normal; Poikilocytosis SLIGHT = 6-15 cells HPF (0-5); Polychromasia MODERATE = 3-4 cells HPF (0-2); Schistocytes SLIGHT = 2-5 cells HPF (0-1); Target Cells SLIGHT = 2-5 cells HPF (0-1); Tear Drops SLIGHT = 2-5 cells HPF (0-1)
[2023-08-13] MEDS ORDERED: Vancomycin 1 GM/200 ML (FROZEN) BAG ONE (16:14)
[2023-08-13] MEDS ORDERED: Acetaminophen 325 MG TAB PO PRN (17:20)
[2023-08-13] MEDS ORDERED: Insulin Regular 300 UNITS/3 ML VIAL SC PRN (17:20)
[2023-08-13] MEDS ORDERED: Dextrose 5% in Water 1,000 ML IV PRN (17:20)
[2023-08-13] MEDS ORDERED: Glucagon 1 MG/ML KIT IM PRN (17:20)
[2023-08-13] MEDS ORDERED: Dextrose 50% Abboject 50 ML SYRINGE SLOW IVP PRN (17:20)
[2023-08-13] MEDS ORDERED: Ipratropium Bromide 2.5 ml Neb NEB PRN (17:20)
[2023-08-13 17:22] LABS: Bacteria/HPF None Seen HPF (None Seen); Bilirubin Negative (Negative); Blood, Urine Negative (Negative); CAUTI Indications for Culture Fever or rigors; Clarity Clear (Clear); Glucose, Urine (Dipstick) Normal (Negative); Ketone, Urine Negative (Negative); Leukocyte Negative Leu/uL (Negative); Nitrite Negative (Negative); Protein, Urine (Dipstick) Negative (Neg-Trace); RBC/HPF 0-3 HPF (0-3); Squamous Epithelial 0-3 HPF (0-3); Urobilinogen Normal mg/dL (Less than 2); WBC/HPF 0-3 HPF (0-3); pH, Urine 6.5 (5.0-9.0)
[2023-08-13 17:23] LABS: Urine Culture Reflex No No
[2023-08-13 17:41] LABS: SARS-CoV-2 NAA Rapid Test Not Detected (NotDetected)
[2023-08-13 18:58] LABS: Lactic Acid 1.2 mmol/L (0.5-2.2)
[2023-08-13 19:08] LABS: Troponin I Less than 0.010 ng/mL (< 0.028)
[2023-08-13] MEDS ORDERED: cefTRIAXone\\ROCEPHIN 1 GM in Sodium Chloride 0.9% 100 ML IVPB SCH (20:00)
[2023-08-13] MEDS ORDERED: Vancomycin Dose by Levels Sliding Scale (Wt <71) FS SCH (20:15)
[2023-08-13] MEDS ORDERED: Vancomycin 1 GM in Sodium Chloride 0.9% 250 ML 250 ML IVPB SCH (21:00)
[2023-08-13 23:10] LABS: Troponin I Less than 0.010 ng/mL (< 0.028)
[2023-08-14 05:09] LABS: #Monocytes 0.9 thou/uL (0.11-0.59); #Neutrophils 10.8 thou/uL (1.40-6.50); %Basophils 0.2 % (0.0-1.0); %Eosinophils 0.1 % (0.0-10.0); %Lymphocytes 9.9 % (21.0-51.0); %Monocytes 6.9 % (0.0-10.0); Hematocrit 26.5 % (36.0-47.0); Hemoglobin 8.2 g/dL (12.0-16.0); Mean Corpuscular HGB CONC 30.9 g/dL (32.0-36.0); Mean Corpuscular Hemoglobin 20.5 pg (27.0-31.0); Mean Corpuscular Volume 66.3 fl (78.0-98.0); Platelet Count 204 10x3/uL (130-400); White Blood Cell (WBC) Count 13.4 10x3/uL (4.8-10.8)
[2023-08-14 05:38] LABS: Anion Gap 12 mmol/L (10-20); BUN (Urea Nitrogen) 18 mg/dL (9.8-20.1); Calc. Creatinine Clearance 27 mL/min (70-130); Calcium 8.8 mg/dL (7.8-10.44); Carbon Dioxide 21 mmol/L (23-31); Chloride 111 mmol/L (98-107); Estimated GFR 44; Glucose 87 mg/dL (83-110); Potassium 3.5 mmol/L (3.5-5.1); Sodium 140 mmol/L (136-145)
[2023-08-14] MEDS ORDERED: Non-Formulary Item 1 EACH (Fluticasone/Umeclidin/Vilanter [Trelegy Ellipta 100-62.5-25] 1 IH SCH (09:00)
[2023-08-14] MEDS ORDERED: Non-Formulary Item 1 EACH (Omeprazole [Omeprazole] 20 MG Tab.Rap.Dr) PO SCH (09:00)
[2023-08-14] MEDS: Aspirin 81 mg Enteric Coated Tablet PO SCH (10:06)
[2023-08-14] MEDS: Loratadine 10 MG TAB PO SCH (10:06)
[2023-08-14] MEDS: predniSONE 20 MG TAB PO SCH (10:06)
[2023-08-14] MEDS: Ipratropium/Albuterol 3 ML NEB NEB SCH ×2 (14:03→19:48)
[2023-08-14] MEDS: Cefepime 1 GM in Sodium Chloride 0.9% 100 ML IVPB SCH (14:46)
[2023-08-14 15:17] LABS: Vancomycin, Random 7.4 ug/mL (See Comment)
[2023-08-14] MEDS ORDERED: Vancomycin HCl 750 MG in Sodium Chloride 0.9% 250 ML 250 ML IVPB SCH ×2 (16:15→17:30)
[2023-08-14] MEDS: Folic Acid 1 MG TAB PO SCH (19:48)
[2023-08-14] MEDS: Mometasone 100 MCG/PUFF (1 INHALER) INH SCH (19:49)
[2023-08-14] MEDS: Amlodipine 5 MG TAB PO SCH (19:49)
[2023-08-14] MEDS: Sertraline 25 MG TAB PO SCH (19:49)
[2023-08-14] MEDS ORDERED: Non-Formulary Item 1 EACH (Sertraline Hcl [Zoloft] 50 MG Tablet) PO SCH (21:00)
[2023-08-14] MEDS ORDERED: Non-Formulary Item 1 EACH (Folic Acid [Folic Acid] 0.4 MG Tablet) PO SCH (21:00)
[2023-08-15] MEDS ORDERED: Ipratropium/Albuterol 3 ML NEB ONE (01:19)
[2023-08-15] MEDS: Ipratropium/Albuterol 3 ML NEB NEB SCH ×4 (01:34→18:25)
[2023-08-15] MEDS: Levothyroxine Sodium 88 MCG TAB PO SCH (05:33)
[2023-08-15] MEDS: Mometasone 100 MCG/PUFF (1 INHALER) INH SCH ×2 (06:56→18:26)
[2023-08-15] MEDS: predniSONE 20 MG TAB PO SCH (08:55)
[2023-08-15] MEDS: Loratadine 10 MG TAB PO SCH (08:55)
[2023-08-15] MEDS: Aspirin 81 mg Enteric Coated Tablet PO SCH (08:55)
[2023-08-15] MEDS ORDERED: Phenol 177 ML BOT PO PRN (11:37)
[2023-08-15] MEDS: Cefepime 1 GM in Sodium Chloride 0.9% 100 ML IVPB SCH (15:48)
[2023-08-15] MEDS ORDERED: Fluticasone Propionate Nasal Spray 16 gm Bottle NASAL SCH (16:00)
[2023-08-15 16:29] LABS: Vancomycin, Random 8.7 ug/mL (See Comment)
[2023-08-15] MEDS ORDERED: Vancomycin 1 GM in Premix 1 BAG IVPB SCH (17:00)
[2023-08-15] MEDS: Sertraline 25 MG TAB PO SCH (20:52)
[2023-08-15] MEDS: Amlodipine 5 MG TAB PO SCH (20:52)
[2023-08-15] MEDS: Folic Acid 1 MG TAB PO SCH (20:53)
[2023-08-16] MEDS: Ipratropium/Albuterol 3 ML NEB NEB SCH ×4 (00:51→19:34)
[2023-08-16] MEDS: Levothyroxine Sodium 88 MCG TAB PO SCH (06:03)
[2023-08-16 06:32] LABS: Hematocrit 27.2 % (36.0-47.0); Hemoglobin 8.6 g/dL (12.0-16.0); Mean Corpuscular HGB CONC 31.6 g/dL (32.0-36.0); Mean Corpuscular Hemoglobin 20.6 pg (27.0-31.0); Mean Corpuscular Volume 65.1 fl (78.0-98.0); Mean Platelet Volume 10.2 fL (7.4-10.4); Platelet Count 296 10x3/uL (130-400); RBC Distribution Width 15.9 % (11.5-14.5); Red Blood Cell (RBC) Count 4.18 mill/uL (4.20-5.40)
[2023-08-16 06:33] LABS: Delete Auto Diff?? YES; Manual Diff?? YES
[2023-08-16] MEDS: Mometasone 100 MCG/PUFF (1 INHALER) INH SCH ×2 (06:39→19:36)
[2023-08-16 06:59] LABS: Anion Gap 13 mmol/L (10-20); BUN (Urea Nitrogen) 27 mg/dL (9.8-20.1); Calc. Creatinine Clearance 30 mL/min (70-130); Calcium 9.1 mg/dL (7.8-10.44); Carbon Dioxide 22 mmol/L (23-31); Chloride 110 mmol/L (98-107); Estimated GFR 49; Glucose 114 mg/dL (83-110); Potassium 3.8 mmol/L (3.5-5.1); Sodium 141 mmol/L (136-145)
[2023-08-16 08:12] LABS: Band 1 % (5-11); CellaVision Operator ID LAB.GE; Hypochromia SLIGHT = 6-15 cells HPF (0-5); Large Platelets 3.1 % (0-5); Lymphocytes 6 % (21-51); Metamyelocyte 1 % (0-0); Microcytosis MODERATE=15-30 cells HPF (0-5); Monocytes 4 % (0-10); Myelocyte 2 % (0-0); Neutrophil 85 % (42-75); Nucleated RBC (Manual Ct) 1 % (0); Platelet Adequacy Comment Platelets Normal; Polychromasia SLIGHT = 2-3 cells HPF (0-2); Reactive Lymphocytes 1 % (0-10); Tear Drops SLIGHT = 2-5 cells HPF (0-1); Total Cell Count 98
[2023-08-16] MEDS: Aspirin 81 mg Enteric Coated Tablet PO SCH (09:28)
[2023-08-16] MEDS: Loratadine 10 MG TAB PO SCH (09:28)
[2023-08-16] MEDS: Fluticasone Propionate Nasal Spray 16 gm Bottle NASAL SCH (09:29)
[2023-08-16] MEDS: predniSONE 20 MG TAB PO SCH (12:19)
[2023-08-16] MEDS: Cefepime 1 GM in Sodium Chloride 0.9% 100 ML IVPB SCH (16:01)
[2023-08-16 16:59] LABS: Vancomycin, Random 12.7 ug/mL (See Comment)
[2023-08-16] MEDS ORDERED: Ipratropium/Albuterol 3 ML NEB ONE (19:18)
[2023-08-16] MEDS: Amoxicillin/Potassium Clav 875 MG TAB PO SCH (20:28)
[2023-08-16] MEDS: Amlodipine 5 MG TAB PO SCH (20:28)
[2023-08-16] MEDS: Sertraline 25 MG TAB PO SCH (20:29)
[2023-08-16] MEDS: Folic Acid 1 MG TAB PO SCH (20:29)
[2023-08-17] MEDS: Ipratropium/Albuterol 3 ML NEB NEB SCH ×3 (01:40→12:43)
[2023-08-17] MEDS: Levothyroxine Sodium 88 MCG TAB PO SCH (06:00)
[2023-08-17] MEDS: Mometasone 100 MCG/PUFF (1 INHALER) INH SCH (06:39)
[2023-08-17] MEDS: predniSONE 20 MG TAB PO SCH (08:35)
[2023-08-17] MEDS: Loratadine 10 MG TAB PO SCH (08:35)
[2023-08-17] MEDS: Fluticasone Propionate Nasal Spray 16 gm Bottle NASAL SCH (08:35)
[2023-08-17] MEDS: Aspirin 81 mg Enteric Coated Tablet PO SCH (08:35)
[2023-08-17] MEDS: Amoxicillin/Potassium Clav 875 MG TAB PO SCH (08:35)
[2023-08-17 12:07] VITALS: BP 157/69; TEMP 98
== END 2023-08-17 18:20 | disposition home or self-care (01) | DRG 193 ==
LOC: ERS 15:10 → ERHOLD 16:54 → 2NO 23:05 → T4-B 08-14 12:41
PROVIDERS: ADMIT Internal Medicine; ATTEND Internal Medicine
DX: J18.9 Pneumonia, unspecified organism (principal); J96.21 Acute and chronic respiratory failure with hypoxia; J44.0 Chronic obstructive pulmonary disease with (acute) lower respiratory infection; N17.9 Acute kidney failure, unspecified; J44.1 Chronic obstructive pulmonary disease with (acute) exacerbation; M81.0 Age-related osteoporosis without current pathological fracture; E78.5 Hyperlipidemia, unspecified; E03.9 Hypothyroidism, unspecified; F41.9 Anxiety disorder, unspecified; N18.30 Chronic kidney disease, stage 3 unspecified; I12.9 Hypertensive chronic kidney disease with stage 1 through stage 4 chronic kidney disease, or unspecified chronic kidney disease; R73.9 Hyperglycemia, unspecified; D56.9 Thalassemia, unspecified; D63.8 Anemia in other chronic diseases classified elsewhere; D56.3 Thalassemia minor; Z11.52 Encounter for screening for COVID-19; Z90.710 Acquired absence of both cervix and uterus; Z98.890 Other specified postprocedural states; Z87.891 Personal history of nicotine dependence; Z86.711 Personal history of pulmonary embolism; Z79.82 Long term (current) use of aspirin; Z79.899 Other long term (current) drug therapy
CPT/HCPCS: 36415; 36416; 71045; 80048; 80053; 80202; 81001; 82805; 83605; 83880; 84484; 85025; 87040; 87077; 87081; 87086; 87186; 93005; 94640; J0692; J1956; J3370; J3370-JW; J3490; J7050; J7512; J7620; U0002

== ENCOUNTER 2023-09-08 10:53 | Outpatient (CLI) | payer MEDICARE ==
[2023-09-08] MEDS ORDERED: Heparin 1,000 UNITS/ML VIAL ONE (13:48)
[2023-09-08] MEDS ORDERED: Sodium Bicarbonate 2.5 MEQ/5 ML VIAL ONE (13:48)
[2023-09-08] MEDS ORDERED: Lidocaine 1% PF 5 ML VIAL ONE (13:48)
== END 2023-09-08 10:54 | disposition home or self-care (01) ==
LOC: RAD 10:53
PROVIDERS: ATTEND Internal Medicine Critical Care Medicine
DX: R06.00 Dyspnea, unspecified (principal)
CPT/HCPCS: 71046; J1644

== ENCOUNTER 2023-10-07 11:29 | Outpatient (CLI) | payer MEDICARE | END 2023-10-07 11:30 | disposition home or self-care (01) | LOC: BICRAD 11:29 | PROVIDERS: ATTEND Nurse Practitioner Family | DX: R06.00 Dyspnea, unspecified (principal); I70.0 Atherosclerosis of aorta; M43.8X4 Other specified deforming dorsopathies, thoracic region; J98.4 Other disorders of lung | CPT/HCPCS: 71046; 87086 ==

== ENCOUNTER 2023-10-10 18:03 | Inpatient (IN) | payer MEDICARE ==
[~2023-10-10 18:03] MED LIST changes: -Iopamidol 370 76% 75 ML VIAL FS ONE; +Iopamidol-370 76% 500 ML MDV (1 ML CHARGE) ONE
[2023-10-10 19:47] LABS: #Eosinphils 0.1 thou/uL (0.0-0.7); #Monocytes 1.3 thou/uL (0.11-0.59); #Neutrophils 12.6 thou/uL (1.40-6.50); %Basophils 0.2 % (0.0-1.0); %Eosinophils 0.6 % (0.0-10.0); %Lymphocytes 10.5 % (21.0-51.0); %Monocytes 8.4 % (0.0-10.0); Hematocrit 26.1 % (36.0-47.0); Hemoglobin 8.1 g/dL (12.0-16.0); Mean Corpuscular Volume 64.4 fl (78.0-98.0); Platelet Count 239 10x3/uL (130-400); RBC Distribution Width 19.9 % (11.5-14.5); Red Blood Cell (RBC) Count 4.05 mill/uL (4.20-5.40)
[2023-10-10 20:08] LABS: Anisocytosis SLIGHT = 6-15 cells HPF (0-5); CellaVision Operator ID LAB.KB; Hypochromia SLIGHT = 6-15 cells HPF (0-5); Microcytosis MODERATE=15-30 cells HPF (0-5); Ovalocytes SLIGHT = 2-5 cells HPF (0-1); Platelet Adequacy Comment Platelets Normal; Polychromasia SLIGHT = 2-3 cells HPF (0-2); Target Cells SLIGHT = 2-5 cells HPF (0-1); Tear Drops SLIGHT = 2-5 cells HPF (0-1)
[2023-10-10 20:13] LABS: ALT (SGPT) 23 U/L (8-55); AST (SGOT) 36 U/L (5-34); Albumin 3.3 g/dL (3.4-4.8); Alkaline Phosphatase 88 U/L (40-110); Anion Gap 13 mmol/L (10-20); BUN (Urea Nitrogen) 20 mg/dL (9.8-20.1); Calc. Creatinine Clearance 0 mL/min (70-130); Calcium 8.9 mg/dL (7.8-10.44); Carbon Dioxide 21 mmol/L (23-31); Chloride 105 mmol/L (98-107); Estimated GFR 42; Globulin 3.3 g/dL (2.4-3.5); Glucose 125 mg/dL (83-110); Lipase 12 U/L (8-78); Potassium 3.2 mmol/L (3.5-5.1); Protein, Total 6.6 g/dL (5.8-8.1); Sodium 136 mmol/L (136-145)
[2023-10-10 20:17] LABS: Troponin I Less than 0.010 ng/mL (< 0.028)
[2023-10-10 21:39] LABS: Bacteria/HPF None Seen HPF (None Seen); Bilirubin Negative (Negative); Blood, Urine Trace (Negative); CAUTI Indications for Culture Pelvic or flank pain; Clarity Clear (Clear); Glucose, Urine (Dipstick) Normal (Negative); Ketone, Urine Negative (Negative); Leukocyte Negative Leu/uL (Negative); Nitrite Negative (Negative); Protein, Urine (Dipstick) 10 mg/dL (Neg-Trace); RBC/HPF 0-3 HPF (0-3); Urobilinogen Normal mg/dL (Less than 2); WBC/HPF 0-3 HPF (0-3); pH, Urine 6.5 (5.0-9.0)
[2023-10-10 21:43] LABS: Urine Culture Reflex No No
[2023-10-10] MEDS ORDERED: LevoFLOXacin 750 mg/D5W 150 ml Premix Bag ONE (21:44)
[2023-10-10] MEDS ORDERED: Potassium Chloride 20 MEQ TAB ONE (21:44)
[2023-10-10 22:32] LABS: Actual Bicarbonate (HCO3v) 22.8 mEq/L (22-28); Base Excess -1.8 mEq/L (-2.0 to +3.0); Calcium, Ionized (venous) 1.13 mmol/L (1.16-1.32); Chloride (VBG) 103 mmol/L (98-106); Hematocrit-VBG 28 % (36.0-47.0); Hemoglobin (Hb) 9.4 g/dL (11.7-16.1); Potassium (VBG) 3.33 mmol/L (3.70-5.30); Sodium 137 mmol/L (133-146); pH (venous) 7.395 (7.32-7.43)
[2023-10-10 22:49] LABS: SARS-CoV-2 NAA Rapid Test Not Detected (NotDetected)
[2023-10-10] MEDS ORDERED: Ondansetron PF 4 MG/2 ML Vial IVP PRN (23:32)
[2023-10-10] MEDS ORDERED: Ipratropium/Albuterol 3 ML NEB EZPAP PRN (23:34)
[2023-10-10 23:41] LABS: Troponin I Less than 0.010 ng/mL (< 0.028)
[2023-10-11 00:50] LABS: Magnesium 1.6 mg/dL (1.6-2.6)
[2023-10-11 00:52] VITALS: BMI 21.7
[2023-10-11] MEDS ORDERED: Sodium Chloride 0.9% 500 ML IV SCH (01:30)
[2023-10-11] MEDS ORDERED: Magnesium 2 GM/50 ML(in water) 2 GM in Premix 1 BAG IVPB SCH (01:30)
[2023-10-11] MEDS: Ipratropium/Albuterol 3 ML NEB NEB SCH ×5 (02:37→21:54)
[2023-10-11 07:04] LABS: #Eosinphils 0.1 thou/uL (0.0-0.7); #Monocytes 1.2 thou/uL (0.11-0.59); #Neutrophils 12.4 thou/uL (1.40-6.50); %Basophils 0.2 % (0.0-1.0); %Eosinophils 0.4 % (0.0-10.0); %Lymphocytes 7.3 % (21.0-51.0); %Monocytes 8.1 % (0.0-10.0); Hematocrit 23.7 % (36.0-47.0); Hemoglobin 7.4 g/dL (12.0-16.0); Mean Corpuscular HGB CONC 31.2 g/dL (32.0-36.0); Mean Corpuscular Hemoglobin 20.1 pg (27.0-31.0); Mean Corpuscular Volume 64.2 fl (78.0-98.0); Platelet Count 239 10x3/uL (130-400); RBC Distribution Width 19.8 % (11.5-14.5); Red Blood Cell (RBC) Count 3.69 mill/uL (4.20-5.40)
[2023-10-11 07:35] LABS: Anion Gap 13 mmol/L (10-20); BUN (Urea Nitrogen) 16 mg/dL (9.8-20.1); Calc. Creatinine Clearance 29 mL/min (70-130); Calcium 8.6 mg/dL (7.8-10.44); Carbon Dioxide 20 mmol/L (23-31); Chloride 107 mmol/L (98-107); Estimated GFR 45; Glucose 99 mg/dL (83-110); Magnesium 2.2 mg/dL (1.6-2.6); Potassium 3.6 mmol/L (3.5-5.1); Sodium 136 mmol/L (136-145)
[2023-10-11] MEDS: Enoxaparin 30 MG (0.3 mL) SYRINGE SC SCH (09:46)
[2023-10-11] MEDS: Acetaminophen 325 MG TAB PO PRN (21:23)
[2023-10-11] MEDS: Benzocaine/Menthol 1 LOZ LOZ PO PRN (21:24)
[2023-10-12] MEDS: Ipratropium/Albuterol 3 ML NEB NEB SCH ×6 (01:44→23:12)
[2023-10-12 04:20] LABS: #Eosinphils 0.1 thou/uL (0.0-0.7); #Monocytes 1.1 thou/uL (0.11-0.59); #Neutrophils 7.9 thou/uL (1.40-6.50); %Basophils 0.4 % (0.0-1.0); %Eosinophils 0.9 % (0.0-10.0); %Lymphocytes 12.9 % (21.0-51.0); %Monocytes 10.1 % (0.0-10.0); %Neutrophils 74.4 % (42.0-75.0); Hematocrit 21.8 % (36.0-47.0); Hemoglobin 6.9 g/dL (12.0-16.0); Mean Corpuscular HGB CONC 31.7 g/dL (32.0-36.0); Mean Corpuscular Hemoglobin 20.4 pg (27.0-31.0); Mean Corpuscular Volume 64.3 fl (78.0-98.0); Platelet Count 220 10x3/uL (130-400); RBC Distribution Width 20.2 % (11.5-14.5); Red Blood Cell (RBC) Count 3.39 mill/uL (4.20-5.40); White Blood Cell (WBC) Count 10.7 10x3/uL (4.8-10.8)
[2023-10-12 04:47] LABS: Anion Gap 13 mmol/L (10-20); BUN (Urea Nitrogen) 12 mg/dL (9.8-20.1); Calc. Creatinine Clearance 30 mL/min (70-130); Calcium 8.2 mg/dL (7.8-10.44); Carbon Dioxide 21 mmol/L (23-31); Chloride 108 mmol/L (98-107); Estimated GFR 46; Glucose 134 mg/dL (83-110); Magnesium 1.8 mg/dL (1.6-2.6); Potassium 3.1 mmol/L (3.5-5.1); Sodium 139 mmol/L (136-145)
[2023-10-12 05:07] LABS: Anisocytosis MODERATE=16-30 cells HPF (0-5); CellaVision Operator ID lab.sh2; Hypochromia SLIGHT = 6-15 cells HPF (0-5); Macrocytosis SLIGHT = 6-15 cells HPF (0-5); Microcytosis MODERATE=15-30 cells HPF (0-5); Ovalocytes MODERATE= 6-15 cells HPF (0-1); Platelet Adequacy Comment Platelets Normal; Polychromasia SLIGHT = 2-3 cells HPF (0-2); Target Cells SLIGHT = 2-5 cells HPF (0-1); Tear Drops SLIGHT = 2-5 cells HPF (0-1)
[2023-10-12] MEDS: Enoxaparin 30 MG (0.3 mL) SYRINGE SC SCH (09:32)
[2023-10-12] MEDS ORDERED: Phenol 177 ML BOT PO PRN (13:33)
[2023-10-12] MEDS ORDERED: Furosemide 20 MG (2 mL) VIAL SLOW IVP SCH (14:15)
[2023-10-12] MEDS: methylPREDNISolone Sod Succ 40 MG VIAL IVP SCH (17:29)
[2023-10-12] MEDS ORDERED: LevoFLOXacin 750 mg/D5W 750 MG in Premix 1 BAG IVPB SCH (22:00)
[2023-10-13] MEDS: methylPREDNISolone Sod Succ 40 MG VIAL IVP SCH ×2 (00:28→18:47)
[2023-10-13] MEDS: Ipratropium/Albuterol 3 ML NEB NEB SCH ×6 (00:57→22:23)
[2023-10-13 04:48] LABS: #Monocytes 0.1 thou/uL (0.11-0.59); #Neutrophils 6.3 thou/uL (1.40-6.50); %Basophils 0.6 % (0.0-1.0); %Lymphocytes 5.6 % (21.0-51.0); %Monocytes 1.4 % (0.0-10.0); %Neutrophils 87.5 % (42.0-75.0); Mean Corpuscular HGB CONC 32.6 g/dL (32.0-36.0); Mean Corpuscular Volume 67.6 fl (78.0-98.0); Platelet Count 247 10x3/uL (130-400); RBC Distribution Width 22.8 % (11.5-14.5); Red Blood Cell (RBC) Count 5.09 mill/uL (4.20-5.40); White Blood Cell (WBC) Count 7.2 10x3/uL (4.8-10.8)
[2023-10-13 04:51] LABS: Hemoglobin 11.2 g/dL (12.0-16.0)
[2023-10-13 04:52] LABS: Hematocrit 34.4 % (36.0-47.0)
[2023-10-13 05:14] LABS: Anion Gap 18 mmol/L (10-20); BUN (Urea Nitrogen) 17 mg/dL (9.8-20.1); Calc. Creatinine Clearance 32 mL/min (70-130); Calcium 8.8 mg/dL (7.8-10.44); Carbon Dioxide 19 mmol/L (23-31); Chloride 103 mmol/L (98-107); Estimated GFR 50; Glucose 175 mg/dL (83-110); Magnesium 1.6 mg/dL (1.6-2.6); Potassium 3.6 mmol/L (3.5-5.1); Sodium 136 mmol/L (136-145)
[2023-10-13] MEDS: guaiFENesin/DM ER PO SCH (20:10)
[2023-10-13] MEDS: Benzonatate 100 MG CAP PO PRN (20:10)
[2023-10-14] MEDS: Ipratropium/Albuterol 3 ML NEB NEB SCH ×6 (02:27→22:54)
[2023-10-14] MEDS: Benzonatate 100 MG CAP PO PRN ×2 (10:11→18:03)
[2023-10-14] MEDS: predniSONE 20 MG TAB PO SCH (10:11)
[2023-10-14] MEDS: guaiFENesin/DM ER PO SCH ×2 (10:12→20:00)
[2023-10-14] MEDS: LevoFLOXacin 500 MG TAB PO SCH (10:16)
[2023-10-14 11:00] LABS: #Monocytes 0.9 thou/uL (0.11-0.59); #Neutrophils 12.5 thou/uL (1.40-6.50); %Basophils 0.2 % (0.0-1.0); %Lymphocytes 6.4 % (21.0-51.0); %Neutrophils 84.4 % (42.0-75.0); Hematocrit 36.5 % (36.0-47.0); Hemoglobin 11.9 g/dL (12.0-16.0); Mean Corpuscular HGB CONC 32.6 g/dL (32.0-36.0); Mean Corpuscular Hemoglobin 22.7 pg (27.0-31.0); Mean Corpuscular Volume 69.5 fl (78.0-98.0); Platelet Count 329 10x3/uL (130-400); RBC Distribution Width 24.3 % (11.5-14.5); Red Blood Cell (RBC) Count 5.25 mill/uL (4.20-5.40); White Blood Cell (WBC) Count 14.8 10x3/uL (4.8-10.8)
[2023-10-14 11:22] LABS: ALT (SGPT) 98 U/L (8-55); AST (SGOT) 71 U/L (5-34); Albumin 3.3 g/dL (3.4-4.8); Alkaline Phosphatase 111 U/L (40-110); Anion Gap 14 mmol/L (10-20); BUN (Urea Nitrogen) 29 mg/dL (9.8-20.1); Bilirubin, Total 1.1 mg/dL (0.2-1.2); Calc. Creatinine Clearance 32 mL/min (70-130); Calcium 8.9 mg/dL (7.8-10.44); Carbon Dioxide 22 mmol/L (23-31); Chloride 105 mmol/L (98-107); Estimated GFR 49; Globulin 3.7 g/dL (2.4-3.5); Glucose 189 mg/dL (83-110); Sodium 137 mmol/L (136-145)
[2023-10-14 11:39] LABS: CellaVision Operator ID LAB.GE; Microcytosis MODERATE=15-30 cells HPF (0-5); Ovalocytes SLIGHT = 2-5 cells HPF (0-1); Platelet Adequacy Comment Platelets Normal; Polychromasia MODERATE = 3-4 cells HPF (0-2)
[2023-10-14] MEDS: Benzocaine/Menthol 1 LOZ LOZ PO PRN ×2 (12:31→18:03)
[2023-10-14] MEDS ORDERED: LevoFLOXacin 750 MG TAB PO SCH (21:00)
[2023-10-15] MEDS: Ipratropium/Albuterol 3 ML NEB NEB SCH ×4 (04:06→18:23)
[2023-10-15] MEDS: LevoFLOXacin 500 MG TAB PO SCH (05:58)
[2023-10-15] MEDS: Mometasone 100 MCG/Formoterol 5 MCG 120 PUFF INHALER INH SCH ×2 (06:45→18:24)
[2023-10-15] MEDS: predniSONE 20 MG TAB PO SCH (10:03)
[2023-10-15] MEDS: Benzocaine/Menthol 1 LOZ LOZ PO PRN ×3 (10:04→22:46)
[2023-10-15] MEDS: Benzonatate 100 MG CAP PO PRN ×2 (10:04→19:42)
[2023-10-15] MEDS: guaiFENesin/DM ER PO SCH ×2 (10:04→19:41)
[2023-10-15 10:09] LABS: Hematocrit 36.6 % (36.0-47.0); Hemoglobin 11.5 g/dL (12.0-16.0); Manual Diff?? YES; Mean Corpuscular HGB CONC 31.4 g/dL (32.0-36.0); Mean Corpuscular Hemoglobin 21.9 pg (27.0-31.0); Mean Corpuscular Volume 69.7 fl (78.0-98.0); Mean Platelet Volume 10.5 fL (7.4-10.4); Platelet Count 343 10x3/uL (130-400); RBC Distribution Width 25.1 % (11.5-14.5); Red Blood Cell (RBC) Count 5.25 mill/uL (4.20-5.40); White Blood Cell (WBC) Count 13.8 10x3/uL (4.8-10.8)
[2023-10-15 10:12] LABS: Delete Auto Diff?? YES
[2023-10-15 10:31] LABS: Anion Gap 9 mmol/L (10-20); BUN (Urea Nitrogen) 34 mg/dL (9.8-20.1); Calc. Creatinine Clearance 30 mL/min (70-130); Calcium 8.4 mg/dL (7.8-10.44); Carbon Dioxide 25 mmol/L (23-31); Chloride 108 mmol/L (98-107); Estimated GFR 47; Glucose 118 mg/dL (83-110); Potassium 4.3 mmol/L (3.5-5.1); Sodium 138 mmol/L (136-145)
[2023-10-15 10:42] LABS: Band 1 % (5-11); CellaVision Operator ID LAB.KW3; Elliptocytes SLIGHT = 2-5 cells HPF (0-1); Hypochromia SLIGHT = 6-15 cells HPF (0-5); Lymphocytes 8 % (21-51); Monocytes 11 % (0-10); Neutrophil 80 % (42-75); Platelet Adequacy Comment Platelets Normal; Polychromasia MARKED = >4 cells HPF (0-2); Target Cells SLIGHT = 2-5 cells HPF (0-1); Tear Drops SLIGHT = 2-5 cells HPF (0-1); Total Cell Count 100
[2023-10-16] MEDS: LevoFLOXacin 500 MG TAB PO SCH (03:42)
[2023-10-16] MEDS: Benzocaine/Menthol 1 LOZ LOZ PO PRN ×2 (03:42→10:31)
[2023-10-16] MEDS: Mometasone 100 MCG/Formoterol 5 MCG 120 PUFF INHALER INH SCH ×2 (07:01→18:06)
[2023-10-16] MEDS: Ipratropium/Albuterol 3 ML NEB NEB SCH ×3 (07:03→18:04)
[2023-10-16] MEDS: predniSONE 20 MG TAB PO SCH (08:33)
[2023-10-16] MEDS: Benzonatate 100 MG CAP PO PRN (08:34)
[2023-10-16] MEDS: Acetaminophen 325 MG TAB PO PRN (08:39)
[2023-10-16 09:37] LABS: Hematocrit 42.6 % (36.0-47.0); Manual Diff?? YES; Mean Corpuscular HGB CONC 30.5 g/dL (32.0-36.0); Mean Corpuscular Hemoglobin 22.5 pg (27.0-31.0); Platelet Count 334 10x3/uL (130-400); RBC Distribution Width 26.5 % (11.5-14.5); Red Blood Cell (RBC) Count 5.77 mill/uL (4.20-5.40); White Blood Cell (WBC) Count 13.2 10x3/uL (4.8-10.8)
[2023-10-16] MEDS: guaiFENesin/DM ER PO SCH ×2 (10:25→20:10)
[2023-10-16 11:16] LABS: Delete Auto Diff?? YES; Mean Corpuscular Volume 73.8 fl (78.0-98.0)
[2023-10-16 12:25] LABS: Albumin 3.4 g/dL (3.4-4.8)
[2023-10-16 12:26] LABS: Calcium 8.6 mg/dL (7.8-10.44); Chloride 107 mmol/L (98-107); Sodium 137 mmol/L (136-145)
[2023-10-16 12:27] LABS: Globulin 3.3 g/dL (2.4-3.5); Glucose 121 mg/dL (83-110); Protein, Total 6.7 g/dL (5.8-8.1)
[2023-10-16 12:28] LABS: Anion Gap 16 mmol/L (10-20); Carbon Dioxide 18 mmol/L (23-31)
[2023-10-16 12:29] LABS: Bilirubin, Total 1.3 mg/dL (0.2-1.2)
[2023-10-16 12:30] LABS: Alkaline Phosphatase 112 U/L (40-110); Calc. Creatinine Clearance 32 mL/min (70-130); Estimated GFR 51
[2023-10-16 12:31] LABS: BUN (Urea Nitrogen) 31 mg/dL (9.8-20.1)
[2023-10-16 12:32] LABS: AST (SGOT) 38 U/L (5-34)
[2023-10-16 12:33] LABS: ALT (SGPT) 94 U/L (8-55)
[2023-10-16 12:40] LABS: Band 4 % (5-11); Eosinophils 1 % (0-10); Lymphocytes 14 % (21-51); Monocytes 2 % (0-10); Myelocyte 3 % (0-0); Neutrophil 76 % (42-75); Nucleated RBC (Manual Ct) 1 % (0)
[2023-10-16 12:41] LABS: Anisocytosis MODERATE=16-30 cells (100X) (0-5/hpf); Hypochromia SLIGHT = 6-15 cells (100X) (0-5/hpf); Ovalocytes SLIGHT = 2-5 cells (100X) (0-1/hpf); Platelet Adequacy Comment Platelets Normal; Polychromasia SLIGHT = 2-3 cells (100X) (0-2/hpf)
[2023-10-16] MEDS: Guaifenesin DM 100-10/5 ML UDCUP PO PRN (16:35)
[2023-10-16] MEDS ORDERED: Sertraline 25 MG TAB PO SCH (17:00)
[2023-10-16] MEDS: Atorvastatin Calcium 10 MG TAB PO SCH (20:09)
[2023-10-16] MEDS: Sertraline 25 MG TAB PO SCH (20:10)
[2023-10-16] MEDS: Ipratropium/Albuterol 3 ML NEB NEB PRN (22:15)
[2023-10-17] MEDS: Levothyroxine Sodium 88 MCG TAB PO SCH (06:02)
[2023-10-17] MEDS: LevoFLOXacin 500 MG TAB PO SCH (06:02)
[2023-10-17] MEDS: Mometasone 100 MCG/Formoterol 5 MCG 120 PUFF INHALER INH SCH ×2 (07:13→18:35)
[2023-10-17] MEDS: Ipratropium/Albuterol 3 ML NEB NEB SCH ×3 (07:15→18:34)
[2023-10-17] MEDS ORDERED: Non-Formulary Item 1 EACH (Fluticasone/Umeclidin/Vilanter [Trelegy Ellipta 100-62.5-25] 1 IH SCH (09:00)
[2023-10-17] MEDS: Aspirin 81 mg Enteric Coated Tablet PO SCH (09:19)
[2023-10-17] MEDS: Cholecalciferol 1,000 UNITS (25 MCG) TAB PO SCH (09:19)
[2023-10-17] MEDS: predniSONE 20 MG TAB PO SCH (09:19)
[2023-10-17] MEDS: guaiFENesin/DM ER PO SCH ×2 (09:20→20:44)
[2023-10-17 11:17] LABS: Hematocrit 42.8 % (36.0-47.0); Hemoglobin 13.5 g/dL (12.0-16.0); Manual Diff?? YES; Mean Corpuscular HGB CONC 31.5 g/dL (32.0-36.0); Mean Corpuscular Hemoglobin 22.2 pg (27.0-31.0); Mean Corpuscular Volume 70.4 fl (78.0-98.0); Platelet Count 375 10x3/uL (130-400); RBC Distribution Width 26.2 % (11.5-14.5); Red Blood Cell (RBC) Count 6.08 mill/uL (4.20-5.40); White Blood Cell (WBC) Count 18.7 10x3/uL (4.8-10.8)
[2023-10-17 11:22] LABS: Delete Auto Diff?? YES
[2023-10-17 11:42] LABS: ALT (SGPT) 85 U/L (8-55); AST (SGOT) 38 U/L (5-34); Albumin 3.5 g/dL (3.4-4.8); Alkaline Phosphatase 98 U/L (40-110); Anion Gap 18 mmol/L (10-20); BUN (Urea Nitrogen) 35 mg/dL (9.8-20.1); Bilirubin, Total 1.3 mg/dL (0.2-1.2); Calc. Creatinine Clearance 29 mL/min (70-130); Calcium 9.4 mg/dL (7.8-10.44); Carbon Dioxide 17 mmol/L (23-31); Chloride 107 mmol/L (98-107); Estimated GFR 45; Globulin 3.9 g/dL (2.4-3.5); Glucose 66 mg/dL (83-110); Potassium 4.6 mmol/L (3.5-5.1); Protein, Total 7.4 g/dL (5.8-8.1); Sodium 137 mmol/L (136-145)
[2023-10-17 11:54] LABS: Anisocytosis SLIGHT = 6-15 cells HPF (0-5); Band 1 % (5-11); Burr Cells MODERATE= 6-15 cells HPF (0-1); CellaVision Operator ID LAB.CMB; Eosinophils 1 % (0-10); Large Platelets 1.9 % (0-5); Lymphocytes 13 % (21-51); Macrocytosis SLIGHT = 6-15 cells HPF (0-5); Monocytes 5 % (0-10); Myelocyte 1 % (0-0); Neutrophil 72 % (42-75); Other Cell Types 3.8; Ovalocytes MODERATE= 6-15 cells HPF (0-1); Platelet Adequacy Comment Platelets Normal; Polychromasia MODERATE = 3-4 cells HPF (0-2); RBC Morphology 2; Reactive Lymphocytes 4 % (0-10); Tear Drops SLIGHT = 2-5 cells HPF (0-1); Total Cell Count 104
[2023-10-17] MEDS: Benzonatate 100 MG CAP PO PRN (18:09)
[2023-10-17] MEDS: Sertraline 25 MG TAB PO SCH (20:43)
[2023-10-17] MEDS: Atorvastatin Calcium 10 MG TAB PO SCH (20:43)
[2023-10-17] MEDS: Acetaminophen 325 MG TAB PO PRN (20:47)
[2023-10-17] MEDS: Guaifenesin DM 100-10/5 ML UDCUP PO PRN (20:47)
[2023-10-17] MEDS: Ipratropium/Albuterol 3 ML NEB NEB PRN (22:11)
[2023-10-18] MEDS: Guaifenesin DM 100-10/5 ML UDCUP PO PRN ×2 (01:05→22:44)
[2023-10-18] MEDS: Ipratropium/Albuterol 3 ML NEB NEB PRN ×2 (02:10→22:19)
[2023-10-18 05:22] LABS: Hemoglobin 12.3 g/dL (12.0-16.0); Manual Diff?? YES; Mean Corpuscular HGB CONC 31.5 g/dL (32.0-36.0); Mean Corpuscular Hemoglobin 21.9 pg (27.0-31.0); Mean Corpuscular Volume 69.5 fl (78.0-98.0); Mean Platelet Volume 8.6 fL (7.4-10.4); Platelet Count 293 10x3/uL (130-400); RBC Distribution Width 26.1 % (11.5-14.5); Red Blood Cell (RBC) Count 5.61 mill/uL (4.20-5.40)
[2023-10-18] MEDS: LevoFLOXacin 500 MG TAB PO SCH (05:40)
[2023-10-18] MEDS: Levothyroxine Sodium 88 MCG TAB PO SCH (05:40)
[2023-10-18] MEDS: Benzonatate 100 MG CAP PO PRN ×2 (05:40→20:25)
[2023-10-18 05:55] LABS: ALT (SGPT) 65 U/L (8-55); AST (SGOT) 19 U/L (5-34); Albumin 3.3 g/dL (3.4-4.8); Alkaline Phosphatase 85 U/L (40-110); Anion Gap 13 mmol/L (10-20); BUN (Urea Nitrogen) 43 mg/dL (9.8-20.1); Bilirubin, Total 1.1 mg/dL (0.2-1.2); Calc. Creatinine Clearance 25 mL/min (70-130); Calcium 9.1 mg/dL (7.8-10.44); Carbon Dioxide 22 mmol/L (23-31); Chloride 106 mmol/L (98-107); Estimated GFR 38; Glucose 103 mg/dL (83-110); Potassium 4.4 mmol/L (3.5-5.1); Protein, Total 6.3 g/dL (5.8-8.1); Sodium 137 mmol/L (136-145)
[2023-10-18 06:05] LABS: Delete Auto Diff?? YES
[2023-10-18 06:52] LABS: Anisocytosis SLIGHT = 6-15 cells HPF (0-5); Band 1 % (5-11); Burr Cells SLIGHT = 2-5 cells HPF (0-1); CellaVision Operator ID LAB.JMM; Lymphocytes 9 % (21-51); Macrocytosis SLIGHT = 6-15 cells HPF (0-5); Metamyelocyte 3 % (0-0); Monocytes 6 % (0-10); Myelocyte 5 % (0-0); Neutrophil 77 % (42-75); Pappenheimer Bodies SLIGHT = 1-2 cells (100X) (None Seen); Platelet Adequacy Comment Platelets Normal; Polychromasia SLIGHT = 2-3 cells HPF (0-2); Smudge Cells 10.7 %; Total Cell Count 103
[2023-10-18] MEDS: Ipratropium/Albuterol 3 ML NEB NEB SCH ×3 (07:54→18:27)
[2023-10-18] MEDS: Mometasone 100 MCG/Formoterol 5 MCG 120 PUFF INHALER INH SCH ×2 (07:55→18:28)
[2023-10-18] MEDS: Cholecalciferol 1,000 UNITS (25 MCG) TAB PO SCH (08:47)
[2023-10-18] MEDS: Aspirin 81 mg Enteric Coated Tablet PO SCH (08:47)
[2023-10-18] MEDS: predniSONE 20 MG TAB PO SCH (08:47)
[2023-10-18] MEDS: guaiFENesin/DM ER PO SCH ×2 (08:49→20:24)
[2023-10-18] MEDS ORDERED: Sodium Chloride 0.9% 1,000 ML IV SCH (13:45)
[2023-10-18] MEDS: Sertraline 25 MG TAB PO SCH (20:24)
[2023-10-18] MEDS: Atorvastatin Calcium 10 MG TAB PO SCH (20:24)
[2023-10-18] MEDS: Acetaminophen 325 MG TAB PO PRN (22:44)
[2023-10-19] MEDS: Ipratropium/Albuterol 3 ML NEB NEB PRN (02:31)
[2023-10-19] MEDS: Levothyroxine Sodium 88 MCG TAB PO SCH (05:16)
[2023-10-19] MEDS: LevoFLOXacin 500 MG TAB PO SCH (05:16)
[2023-10-19] MEDS: Benzonatate 100 MG CAP PO PRN ×2 (05:16→16:37)
[2023-10-19 05:27] LABS: Hematocrit 37.8 % (36.0-47.0); Hemoglobin 11.9 g/dL (12.0-16.0); Manual Diff?? YES; Mean Corpuscular HGB CONC 31.5 g/dL (32.0-36.0); Mean Corpuscular Hemoglobin 22.2 pg (27.0-31.0); Mean Corpuscular Volume 70.7 fl (78.0-98.0); Platelet Count 312 10x3/uL (130-400); RBC Distribution Width 26.4 % (11.5-14.5); Red Blood Cell (RBC) Count 5.35 mill/uL (4.20-5.40)
[2023-10-19 05:47] LABS: Delete Auto Diff?? YES
[2023-10-19 06:10] LABS: Band 2 % (5-11); CellaVision Operator ID lab.abc; Eosinophils 1 % (0-10); Hypochromia SLIGHT = 6-15 cells HPF (0-5); Lymphocytes 7 % (21-51); Metamyelocyte 2 % (0-0); Microcytosis SLIGHT = 6-15 cells HPF (0-5); Monocytes 4 % (0-10); Myelocyte 6 % (0-0); Neutrophil 78 % (42-75); Platelet Adequacy Comment Platelets Normal; Polychromasia MODERATE = 3-4 cells HPF (0-2); Smudge Cells 18.8 %; Tear Drops SLIGHT = 2-5 cells HPF (0-1); Total Cell Count 101
[2023-10-19 06:22] LABS: Anion Gap 12 mmol/L (10-20); BUN (Urea Nitrogen) 43 mg/dL (9.8-20.1); Calc. Creatinine Clearance 29 mL/min (70-130); Calcium 8.3 mg/dL (7.8-10.44); Carbon Dioxide 19 mmol/L (23-31); Chloride 108 mmol/L (98-107); Estimated GFR 44; Glucose 108 mg/dL (83-110); Potassium 4.4 mmol/L (3.5-5.1); Sodium 135 mmol/L (136-145)
[2023-10-19] MEDS: Ipratropium/Albuterol 3 ML NEB NEB SCH ×3 (07:28→18:40)
[2023-10-19] MEDS: Mometasone 100 MCG/Formoterol 5 MCG 120 PUFF INHALER INH SCH ×2 (07:29→18:42)
[2023-10-19] MEDS: Cholecalciferol 1,000 UNITS (25 MCG) TAB PO SCH (07:45)
[2023-10-19] MEDS: guaiFENesin/DM ER PO SCH (07:45)
[2023-10-19] MEDS: Aspirin 81 mg Enteric Coated Tablet PO SCH (07:45)
[2023-10-19] MEDS: predniSONE 20 MG TAB PO SCH (07:45)
[2023-10-19 17:35] VITALS: BP 129/70; TEMP 98.1
== END 2023-10-19 19:30 | disposition home or self-care (01) | DRG 193 ==
LOC: ERS 18:03 → T4-A 22:25
PROVIDERS: ADMIT Internal Medicine; ATTEND Internal Medicine
PROC: 4A043R1 Measurement of Venous Saturation, Peripheral, Percutaneous Approach (ICD-10-PCS; 2023-10-10)
PROC: 30233N1 Transfusion of Nonautologous Red Blood Cells into Peripheral Vein, Percutaneous Approach (ICD-10-PCS; principal; 2023-10-12)
DX: J18.9 Pneumonia, unspecified organism (principal); J96.21 Acute and chronic respiratory failure with hypoxia; N17.9 Acute kidney failure, unspecified; M48.54XA Collapsed vertebra, not elsewhere classified, thoracic region, initial encounter for fracture; G91.2 (Idiopathic) normal pressure hydrocephalus; Z79.899 Other long term (current) drug therapy; Z79.82 Long term (current) use of aspirin; J44.9 Chronic obstructive pulmonary disease, unspecified; E78.5 Hyperlipidemia, unspecified; I12.9 Hypertensive chronic kidney disease with stage 1 through stage 4 chronic kidney disease, or unspecified chronic kidney disease; E03.9 Hypothyroidism, unspecified; Z90.710 Acquired absence of both cervix and uterus; Z90.49 Acquired absence of other specified parts of digestive tract; F41.9 Anxiety disorder, unspecified; Z87.891 Personal history of nicotine dependence; N18.30 Chronic kidney disease, stage 3 unspecified; Z82.49 Family history of ischemic heart disease and other diseases of the circulatory system; Z11.52 Encounter for screening for COVID-19; D63.1 Anemia in chronic kidney disease; M81.0 Age-related osteoporosis without current pathological fracture
CPT/HCPCS: 36415; 36416; 36430; 71045; 71275; 74177; 80048; 80053; 81001; 82805; 83605; 83690; 83735; 83880; 84484; 85025; 86850; 86900; 86901; 87070; 87205; 93005; 94640; 96374; J1650; J1940; J1956; J2920; J3475; J7030; J7050; J7512; J7620; P9016; Q9967

== ENCOUNTER 2024-01-20 18:09 | Inpatient (IN) | payer MEDICARE ==
[2024-01-20] MEDS ORDERED: Ipratropium/Albuterol 3 ML NEB ONE (19:37)
[2024-01-20] MEDS ORDERED: methylPREDNISolone Sod Succ/PF 125 MG/2 ML VIAL ONE (19:42)
[2024-01-20 20:16] LABS: Actual Bicarbonate (HCO3a) 18.5 mEq/L (22-28); Analyzer IN Cardio ER; Base Excess (BEa) -4.3 mEq/L (-2.0 to +3.0); CO2 Tension 26.3 mmHg (35.0-45.0); Calcium, Ionized (arterial) 1.08 mmol/L (1.12-1.30); Carboxyhemoglobin (COHb) 1.1 gm% (0.0-3.0); Hematocrit-ABG 27 % (36.0-47.0); Hemoglobin (Hb) 9.2 g/dL (12.0-16.0); O2 Tension (PaO2), arterial 62.3 mmHg (> 60.0); Potassium - ABG Lab 4.18 mmol/L (3.70-5.30); pH, Arterial 7.466 (7.35-7.45)
[2024-01-20 20:19] LABS: Puncture Site LRA
[2024-01-20 20:20] LABS: ALV-art Gradient 104.465 mmHg (0-20)
[2024-01-20 20:24] LABS: Hematocrit 30.4 % (36.0-47.0); Hemoglobin 9.4 g/dL (12.0-16.0); Mean Corpuscular HGB CONC 30.9 g/dL (32.0-36.0); Mean Corpuscular Hemoglobin 21.1 pg (27.0-31.0); Mean Corpuscular Volume 68.2 fL (78.0-98.0); Platelet Count 160 10x3/uL (130-400); RBC Distribution Width 17.9 % (11.5-14.5); Red Blood Cell (RBC) Count 4.46 mill/uL (4.20-5.40)
[2024-01-20 20:31] LABS: INR-International Normal Ratio 1.2; PTT 25.8 sec (22.9-36.1); Prothrombin Time 15.3 sec (12.0-14.7)
[2024-01-20 20:36] LABS: ALT (SGPT) 28 U/L (8-55); AST (SGOT) 19 U/L (5-34); Alkaline Phosphatase 80 U/L (40-110); Anion Gap 18 mmol/L (10-20); BUN (Urea Nitrogen) 29 mg/dL (9.8-20.1); Bilirubin, Total 4.2 mg/dL (0.2-1.2); Calc. Creatinine Clearance 0 mL/min (70-130); Calcium 8.9 mg/dL (7.8-10.44); Carbon Dioxide 16 mmol/L (23-31); Chloride 107 mmol/L (98-107); Estimated GFR 29; Glucose 102 mg/dL (83-110); Lipase 10 U/L (8-78); Potassium 4.3 mmol/L (3.5-5.1); Sodium 137 mmol/L (136-145)
[2024-01-20 20:39] LABS: Troponin I Less than 0.010 ng/mL (< 0.028)
[2024-01-20] MEDS ORDERED: cefTRIAXone (ROCEPHIN) 2 GM VIAL ONE (20:57)
[2024-01-20] MEDS ORDERED: Sodium Chloride 0.9% 100 ML ONE (20:57)
[2024-01-20] MEDS ORDERED: Ondansetron PF 4 MG/2 ML Vial IVP PRN (21:12)
[2024-01-20] MEDS ORDERED: HYDROcodone/Acetaminophen 7.5/325 mg Tablet PO PRN (21:12)
[2024-01-20] MEDS ORDERED: Ipratropium/Albuterol 3 ML NEB NEB PRN (21:13)
[2024-01-20 21:14] LABS: Band 2 % (5-11); Hypochromia SLIGHT = 6-15 cells HPF (0-5); Lymphocytes 4 % (21-51); Microcytosis SLIGHT = 6-15 cells HPF (0-5); Monocytes 6 % (0-10); Neutrophil 88 % (42-75); Platelet Adequacy Comment Platelets Normal; Polychromasia SLIGHT = 2-3 cells HPF (0-2); Tear Drops SLIGHT = 2-5 cells HPF (0-1)
[2024-01-20] MEDS ORDERED: Dextrose 50% Abboject 50 ML SYRINGE SLOW IVP PRN (21:16)
[2024-01-20] MEDS ORDERED: Dextrose 5% in Water 1,000 ML IV PRN (21:16)
[2024-01-20] MEDS ORDERED: Glucagon 1 MG/ML KIT IM PRN (21:16)
[2024-01-20] MEDS ORDERED: Azithromycin 500 MG VIAL ONE (21:27)
[2024-01-20 22:55] VITALS: BMI 33.1
[2024-01-20] MEDS: Sodium Chloride 0.9% 1,000 ML IV SCH (23:09)
[2024-01-20] MEDS: methylPREDNISolone Sod Succ 40 MG VIAL IVP SCH (23:31)
[2024-01-20] MEDS: Azithromycin 500 MG in Sodium Chloride 0.9% 250 ML 250 ML IVPB SCH (23:31)
[2024-01-21 01:23] LABS: Troponin I Less than 0.010 ng/mL (< 0.028)
[2024-01-21 03:40] LABS: #Basophils Less than 0.03 10x3/uL (0.0-0.2); #Eosinphils Less than 0.03 10x3/uL (0.0-0.7); %Basophils 0.1 % (0.0-1.0); %Lymphocytes 3.3 % (21.0-51.0); %Monocytes 0.9 % (0.0-10.0); %Neutrophils 94.4 % (42.0-75.0); Hematocrit 23.6 % (36.0-47.0); Hemoglobin 7.3 g/dL (12.0-16.0); Mean Corpuscular HGB CONC 30.9 g/dL (32.0-36.0); Mean Corpuscular Hemoglobin 20.8 pg (27.0-31.0); Mean Corpuscular Volume 67.2 fL (78.0-98.0); Platelet Count 130 10x3/uL (130-400); RBC Distribution Width 17.3 % (11.5-14.5); Red Blood Cell (RBC) Count 3.51 mill/uL (4.20-5.40)
[2024-01-21 04:03] LABS: Anisocytosis SLIGHT = 6-15 cells HPF (0-5); Hypochromia SLIGHT = 6-15 cells HPF (0-5); Microcytosis SLIGHT = 6-15 cells HPF (0-5); Platelet Adequacy Comment Platelets Normal; Polychromasia SLIGHT = 2-3 cells HPF (0-2); Tear Drops SLIGHT = 2-5 cells HPF (0-1)
[2024-01-21 04:05] LABS: Anion Gap 17 mmol/L (10-20); BUN (Urea Nitrogen) 30 mg/dL (9.8-20.1); Calc. Creatinine Clearance 23 mL/min (70-130); Calcium 7.8 mg/dL (7.8-10.44); Carbon Dioxide 17 mmol/L (23-31); Chloride 110 mmol/L (98-107); Estimated GFR 34; Glucose 160 mg/dL (83-110); Potassium 4.5 mmol/L (3.5-5.1); Sodium 139 mmol/L (136-145)
[2024-01-21 04:10] LABS: Troponin I Less than 0.010 ng/mL (< 0.028)
[2024-01-21] MEDS: Heparin 5,000 UNITS/ML VIAL SC SCH (08:13)
[2024-01-21] MEDS: Pantoprazole 40 MG VIAL IVP SCH (08:13)
[2024-01-21] MEDS ORDERED: Non-Formulary Item 1 EACH (Fluticasone/Umeclidin/Vilanter [Trelegy Ellipta 100-62.5-25] 1 IH SCH (09:00)
[2024-01-21] MEDS ORDERED: Enoxaparin 40 MG (0.4 mL) SYRINGE SC SCH (09:00)
[2024-01-21] MEDS ORDERED: Famotidine/PF 20 mg/2ml Vial SLOW IVP SCH (09:00)
[2024-01-21] MEDS: Loratadine 10 MG TAB PO SCH (09:46)
[2024-01-21] MEDS ORDERED: Iopamidol 370 76% 100 ML VIAL ONE (10:59)
[2024-01-21] MEDS: Ipratropium/Albuterol 3 ML NEB NEB SCH (14:14)
[2024-01-21] MEDS: Sertraline 25 MG TAB PO SCH (17:36)
[2024-01-21] MEDS: Mometasone 100 MCG/Formoterol 5 MCG 120 PUFF INHALER INH SCH (18:49)
[2024-01-21] MEDS: cefTRIAXone\\ROCEPHIN 1 GM in Sodium Chloride 0.9% 100 ML IVPB SCH (20:00)
[2024-01-21] MEDS: Amlodipine 5 MG TAB PO SCH (20:03)
[2024-01-21] MEDS: Atorvastatin Calcium 10 MG TAB PO SCH (20:03)
[2024-01-21] MEDS: Insulin Regular 300 UNITS/3 ML VIAL SC PRN (20:11)
[2024-01-22] MEDS: Levothyroxine Sodium 88 MCG TAB PO SCH (05:31)
[2024-01-22] MEDS: Guaifenesin DM 100-10/5 ML UDCUP PO PRN (10:49)
[2024-01-22] MEDS: Insulin Regular 300 UNITS/3 ML VIAL SC PRN (13:27)
[2024-01-22] MEDS: Benzonatate 100 MG CAP PO SCH (13:27)
[2024-01-22 15:24] LABS: Legionella Urinary Ag Negative (Negative); Strep pneumo Urine Ag NEGATIVE (NEGATIVE)
[2024-01-23 05:00] LABS: #Basophils Less than 0.03 10x3/uL (0.0-0.2); #Eosinphils Less than 0.03 10x3/uL (0.0-0.7); %Basophils 0.1 % (0.0-1.0); %Lymphocytes 3.1 % (21.0-51.0); %Monocytes 1.5 % (0.0-10.0); %Neutrophils 93.7 % (42.0-75.0); Hematocrit 22.1 % (36.0-47.0); Hemoglobin 6.8 g/dL (12.0-16.0); Mean Corpuscular HGB CONC 30.8 g/dL (32.0-36.0); Mean Corpuscular Hemoglobin 19.9 pg (27.0-31.0); Mean Corpuscular Volume 64.6 fL (78.0-98.0); Platelet Count 178 10x3/uL (130-400); RBC Distribution Width 17.4 % (11.5-14.5); Red Blood Cell (RBC) Count 3.42 mill/uL (4.20-5.40)
[2024-01-23 05:14] LABS: Anion Gap 15 mmol/L (10-20); BUN (Urea Nitrogen) 22 mg/dL (9.8-20.1); Calc. Creatinine Clearance 37 mL/min (70-130); Calcium 7.6 mg/dL (7.8-10.44); Carbon Dioxide 15 mmol/L (23-31); Chloride 115 mmol/L (98-107); Estimated GFR 61; Glucose 150 mg/dL (83-110); Potassium 3.7 mmol/L (3.5-5.1); Sodium 141 mmol/L (136-145)
[2024-01-23 05:57] LABS: Hypochromia SLIGHT = 6-15 cells HPF (0-5); Microcytosis SLIGHT = 6-15 cells HPF (0-5); Platelet Adequacy Comment Platelets Normal; Polychromasia SLIGHT = 2-3 cells HPF (0-2); Tear Drops SLIGHT = 2-5 cells HPF (0-1)
[2024-01-23] MEDS: Pantoprazole DR 40 MG TAB PO SCH (08:42)
[2024-01-23 10:28] LABS: Iron 154 ug/dL (50-170); Iron Binding Capacity, Total 155 mcg/dL (265-497)
[2024-01-23] MEDS: methylPREDNISolone Sod Succ 40 MG VIAL IVP SCH (21:20)
[2024-01-23] MEDS: Folic Acid 1 MG TAB PO SCH (21:21)
[2024-01-24 07:54] LABS: #Basophils Less than 0.03 10x3/uL (0.0-0.2); #Eosinphils Less than 0.03 10x3/uL (0.0-0.7); %Basophils 0.2 % (0.0-1.0); %Lymphocytes 6.4 % (21.0-51.0); %Monocytes 4.9 % (0.0-10.0); %Neutrophils 83.7 % (42.0-75.0); Hematocrit 29.6 % (36.0-47.0); Hemoglobin 9.8 g/dL (12.0-16.0); Mean Corpuscular HGB CONC 33.1 g/dL (32.0-36.0); Mean Corpuscular Hemoglobin 22.8 pg (27.0-31.0); Platelet Count 161 10x3/uL (130-400); RBC Distribution Width 20.8 % (11.5-14.5); Red Blood Cell (RBC) Count 4.29 mill/uL (4.20-5.40)
[2024-01-24 07:59] VITALS: TEMP 97.5
[2024-01-24 08:05] LABS: Anion Gap 16 mmol/L (10-20); BUN (Urea Nitrogen) 20 mg/dL (9.8-20.1); Calc. Creatinine Clearance 36 mL/min (70-130); Calcium 7.8 mg/dL (7.8-10.44); Carbon Dioxide 19 mmol/L (23-31); Chloride 110 mmol/L (98-107); Estimated GFR 58; Glucose 133 mg/dL (83-110); Potassium 3.7 mmol/L (3.5-5.1); Sodium 141 mmol/L (136-145)
[2024-01-24 13:06] VITALS: BP 145/72
== END 2024-01-24 12:37 | disposition home or self-care (01) | DRG 193 ==
LOC: ERS 18:09 → 2SE 21:14
PROVIDERS: ADMIT Hospitalist; ATTEND Hospitalist
PROC: 4A033R1 Measurement of Arterial Saturation, Peripheral, Percutaneous Approach (ICD-10-PCS; 2024-01-20)
PROC: 30233N1 Transfusion of Nonautologous Red Blood Cells into Peripheral Vein, Percutaneous Approach (ICD-10-PCS; principal; 2024-01-23)
DX: J18.9 Pneumonia, unspecified organism (principal); J96.21 Acute and chronic respiratory failure with hypoxia; J44.1 Chronic obstructive pulmonary disease with (acute) exacerbation; N17.9 Acute kidney failure, unspecified; J44.0 Chronic obstructive pulmonary disease with (acute) lower respiratory infection; Z79.899 Other long term (current) drug therapy; Z79.82 Long term (current) use of aspirin; E78.5 Hyperlipidemia, unspecified; E03.9 Hypothyroidism, unspecified; I12.9 Hypertensive chronic kidney disease with stage 1 through stage 4 chronic kidney disease, or unspecified chronic kidney disease; N18.9 Chronic kidney disease, unspecified; Z90.710 Acquired absence of both cervix and uterus; Z90.49 Acquired absence of other specified parts of digestive tract; Z98.890 Other specified postprocedural states; F41.9 Anxiety disorder, unspecified; D63.1 Anemia in chronic kidney disease; J43.9 Emphysema, unspecified
CPT/HCPCS: 36415; 36416; 36430; 36600; 71045; 71260; 80048; 80053; 82274; 82805; 83540; 83550; 83605; 83690; 83880; 84145; 84484; 85025; 85610; 85730; 86850; 86900; 86901; 87040; 87449; 87899; 93005; 94640; 94760; 96361; 96365; 96367; 96375; C9113; J0456; J0696; J1644; J1815; J2920; J2930; J3490; J7050; J7620; P9016; Q9967

== ENCOUNTER 2024-07-20 14:49 | Inpatient (IN) | payer MEDICARE ==
[2024-07-20 15:22] LABS: Hematocrit 31.8 % (36.0-47.0); Hemoglobin 10.1 g/dL (12.0-16.0); Mean Corpuscular HGB CONC 31.8 g/dL (32.0-36.0); Platelet Count 231 10x3/uL (130-400); RBC Distribution Width 16.2 % (11.5-14.5); Red Blood Cell (RBC) Count 5.05 mill/uL (4.20-5.40)
[2024-07-20 15:41] LABS: Band 5 % (5-11); Lymphocytes 2 % (21-51); Monocytes 5 % (0-10); Neutrophil 88 % (42-75); Platelet Adequacy Comment Platelets Normal; Polychromasia SLIGHT = 2-3 cells HPF (0-2); Schistocytes SLIGHT = 2-5 cells HPF (0-1); Target Cells SLIGHT = 2-5 cells HPF (0-1); Tear Drops SLIGHT = 2-5 cells HPF (0-1)
[2024-07-20 15:55] LABS: ALT (SGPT) 145 U/L (8-55); AST (SGOT) 227 U/L (5-34); Albumin 3.4 g/dL (3.4-4.8); Alkaline Phosphatase 104 U/L (40-110); Anion Gap 16 mmol/L (10-20); BUN (Urea Nitrogen) 26 mg/dL (9.8-20.1); Bilirubin, Total 3.1 mg/dL (0.2-1.2); Calc. Creatinine Clearance 0 mL/min (70-130); Calcium 9.2 mg/dL (7.8-10.44); Carbon Dioxide 20 mmol/L (23-31); Chloride 105 mmol/L (98-107); Estimated GFR 35; Glucose 136 mg/dL (83-110); Lipase 11 U/L (8-78); Potassium 3.9 mmol/L (3.5-5.1); Protein, Total 7.4 g/dL (5.8-8.1); Sodium 137 mmol/L (136-145)
[2024-07-20 15:58] LABS: Troponin I Less than 0.010 ng/mL (< 0.028)
[2024-07-20] MEDS ORDERED: Piperacillin/Tazobactam 4.5 GM VIAL ONE (16:17)
[2024-07-20] MEDS ORDERED: Sodium Chloride 0.9% 100 ML ONE (16:18)
[2024-07-20 18:55] LABS: Troponin I Less than 0.010 ng/mL (< 0.028)
[2024-07-20] MEDS ORDERED: Ondansetron ODT 4 MG TAB PO PRN (19:00)
[2024-07-20 20:05] VITALS: BMI 21.4
[2024-07-20 20:52] LABS: Legionella Urinary Ag Negative (Negative); Strep pneumo Urine Ag NEGATIVE (NEGATIVE)
[2024-07-20] MEDS ORDERED: Ipratropium/Albuterol 3 ML NEB NEB SCH (21:00)
[2024-07-20] MEDS: Piperacillin/Tazobactam 3.375 GM in Sodium Chloride 0.9% 100 ML IVPB SCH (21:08)
[2024-07-20] MEDS: Vancomycin (BATCH) 1.25 GM in Premix 1 BAG IVPB SCH (21:08)
[2024-07-20] MEDS: Ipratropium/Albuterol 3 ML NEB NEB SCH (21:10)
[2024-07-20] MEDS: Mometasone 100 MCG HFA INHALER (RT USE) INH SCH (21:12)
[2024-07-20] MEDS ORDERED: Vancomycin Dose by Levels Sliding Scale (Wt <71) FS SCH (21:15)
[2024-07-20 21:37] LABS: Influenza A by NAA Not Detected (NotDetected); Influenza B by NAA Not Detected (NotDetected); SARS-CoV-2 NAA Rapid Test Not Detected (NotDetected)
[2024-07-20 22:06] LABS: Troponin I Less than 0.010 ng/mL (< 0.028)
[2024-07-21] MEDS: Ondansetron PF 4 MG/2 ML Vial IVP PRN (02:29)
[2024-07-21] MEDS: Acetaminophen 325 MG TAB PO PRN (02:33)
[2024-07-21 06:05] LABS: #Basophils 0.04 10x3/uL (0.0-0.2); #Eosinophils Less than 0.03 10x3/uL (0.0-0.7); %Basophils 0.2 % (0.0-1.0); %Lymphocytes 4.1 % (21.0-51.0); %Neutrophils 88.4 % (42.0-75.0); Hemoglobin 8.3 g/dL (12.0-16.0); Mean Corpuscular HGB CONC 31.9 g/dL (32.0-36.0); Mean Corpuscular Hemoglobin 20.1 pg (27.0-31.0); Mean Corpuscular Volume 63.1 fL (78.0-98.0); Platelet Count 152 10x3/uL (130-400); RBC Distribution Width 15.9 % (11.5-14.5); Red Blood Cell (RBC) Count 4.12 mill/uL (4.20-5.40)
[2024-07-21 06:16] LABS: ALT (SGPT) 98 U/L (8-55); AST (SGOT) 84 U/L (5-34); Albumin 2.7 g/dL (3.4-4.8); Alkaline Phosphatase 91 U/L (40-110); Anion Gap 14 mmol/L (10-20); BUN (Urea Nitrogen) 21 mg/dL (9.8-20.1); Bilirubin, Total 2.8 mg/dL (0.2-1.2); Calc. Creatinine Clearance 23 mL/min (70-130); Carbon Dioxide 18 mmol/L (23-31); Chloride 109 mmol/L (98-107); Estimated GFR 34; Globulin 3.4 g/dL (2.4-3.5); Glucose 164 mg/dL (83-110); Potassium 3.1 mmol/L (3.5-5.1); Protein, Total 6.1 g/dL (5.8-8.1); Sodium 138 mmol/L (136-145)
[2024-07-21 06:35] LABS: Hypochromia SLIGHT = 6-15 cells HPF (0-5); Microcytosis SLIGHT = 6-15 cells HPF (0-5); Platelet Adequacy Comment Platelets Normal; Polychromasia SLIGHT = 2-3 cells HPF (0-2); Tear Drops SLIGHT = 2-5 cells HPF (0-1)
[2024-07-21] MEDS: Mometasone 100 MCG HFA INHALER (RT USE) INH SCH (07:46)
[2024-07-21] MEDS ORDERED: Polyethylene Glycol 3350 17 GM Packet PO PRN (08:18)
[2024-07-21] MEDS: Aspirin 81 mg Enteric Coated Tablet PO SCH (09:11)
[2024-07-21] MEDS: Loratadine 10 MG TAB PO SCH (09:11)
[2024-07-21] MEDS: Heparin 5,000 UNITS/ML VIAL SC SCH (09:11)
[2024-07-21] MEDS: Sodium Chloride 0.9% 1,000 ML IV SCH (13:13)
[2024-07-21] MEDS: Potassium Chloride 20 MEQ TAB PO SCH (13:13)
[2024-07-21] MEDS: Folic Acid 1 MG TAB PO SCH (20:14)
[2024-07-21] MEDS: Atorvastatin Calcium 10 MG TAB PO SCH (20:14)
[2024-07-21] MEDS: Sertraline 25 MG TAB PO SCH (20:14)
[2024-07-21] MEDS ORDERED: Atorvastatin Calcium 10 MG TAB PO SCH (21:00)
[2024-07-21] MEDS ORDERED: Non-Formulary Item 1 EACH (Sertraline Hcl [Zoloft] 50 MG Tablet) PO SCH (21:00)
[2024-07-21] MEDS ORDERED: Non-Formulary Item 1 EACH (Folic Acid [Folic Acid] 0.4 MG Tablet) PO SCH (21:00)
[2024-07-21] MEDS: Benzonatate 100 MG CAP PO PRN (21:00)
[2024-07-22 02:37] LABS: Vancomycin, Trough 9.2 ug/mL
[2024-07-22 02:41] LABS: ALT (SGPT) 75 U/L (8-55); AST (SGOT) 50 U/L (5-34); Albumin 2.4 g/dL (3.4-4.8); Alkaline Phosphatase 104 U/L (40-110); Anion Gap 12 mmol/L (10-20); BUN (Urea Nitrogen) 18 mg/dL (9.8-20.1); Bilirubin, Total 2.1 mg/dL (0.2-1.2); Calc. Creatinine Clearance 24 mL/min (70-130); Calcium 8.1 mg/dL (7.8-10.44); Carbon Dioxide 16 mmol/L (23-31); Chloride 115 mmol/L (98-107); Estimated GFR 36; Globulin 3.4 g/dL (2.4-3.5); Glucose 105 mg/dL (83-110); Potassium 4.1 mmol/L (3.5-5.1); Protein, Total 5.8 g/dL (5.8-8.1); Sodium 139 mmol/L (136-145)
[2024-07-22 02:47] LABS: #Basophils 0.04 10x3/uL (0.0-0.2); %Basophils 0.2 % (0.0-1.0); %Eosinophils 0.3 % (0.0-10.0); %Lymphocytes 7.8 % (21.0-51.0); %Monocytes 7.2 % (0.0-10.0); %Neutrophils 83.7 % (42.0-75.0); Hematocrit 24.3 % (36.0-47.0); Hemoglobin 7.4 g/dL (12.0-16.0); Mean Corpuscular HGB CONC 30.5 g/dL (32.0-36.0); Mean Corpuscular Hemoglobin 19.9 pg (27.0-31.0); Mean Corpuscular Volume 65.3 fL (78.0-98.0); Mean Platelet Volume 10.3 fL (7.4-10.4); Platelet Count 146 10x3/uL (130-400); RBC Distribution Width 16.2 % (11.5-14.5); Red Blood Cell (RBC) Count 3.72 mill/uL (4.20-5.40)
[2024-07-22] MEDS: Levothyroxine Sodium 88 MCG TAB PO SCH (05:05)
[2024-07-22] MEDS: Vancomycin HCl 750 MG in Sodium Chloride 0.9% 250 ML 250 ML IVPB SCH (09:07)
[2024-07-22] MEDS: Lidocaine 4% Patch TD SCH (10:21)
[2024-07-22] MEDS: Acetaminophen/Codeine 30-300mg Tablet PO PRN (10:22)
[2024-07-22] MEDS: methylPREDNISolone Sod Succ 40 MG VIAL IVP SCH ×2 (14:55→20:43)
[2024-07-22] MEDS: Ipratropium/Albuterol 3 ML NEB NEB SCH (16:05)
[2024-07-22] MEDS: Transdermal Patch Removal TOP SCH (22:05)
[2024-07-22] MEDS: Amlodipine 5 MG TAB PO SCH (22:05)
[2024-07-23 05:33] LABS: #Basophils Less than 0.03 10x3/uL (0.0-0.2); #Eosinophils Less than 0.03 10x3/uL (0.0-0.7); %Basophils 0.1 % (0.0-1.0); %Lymphocytes 6.6 % (21.0-51.0); %Neutrophils 88.9 % (42.0-75.0); Hematocrit 24.6 % (36.0-47.0); Hemoglobin 7.8 g/dL (12.0-16.0); Mean Corpuscular HGB CONC 31.7 g/dL (32.0-36.0); Mean Corpuscular Hemoglobin 19.9 pg (27.0-31.0); Mean Corpuscular Volume 62.9 fL (78.0-98.0); Platelet Count 187 10x3/uL (130-400); RBC Distribution Width 16.2 % (11.5-14.5); Red Blood Cell (RBC) Count 3.91 mill/uL (4.20-5.40)
[2024-07-23 06:09] LABS: Anisocytosis SLIGHT = 6-15 cells HPF (0-5); Hypochromia MODERATE=16-30 cells HPF (0-5); Microcytosis SLIGHT = 6-15 cells HPF (0-5); Platelet Adequacy Comment Platelets Normal; Polychromasia SLIGHT = 2-3 cells HPF (0-2); Tear Drops SLIGHT = 2-5 cells HPF (0-1)
[2024-07-23 06:17] LABS: ALT (SGPT) 57 U/L (8-55); AST (SGOT) 24 U/L (5-34); Albumin 2.4 g/dL (3.4-4.8); Alkaline Phosphatase 119 U/L (40-110); Anion Gap 17 mmol/L (10-20); BUN (Urea Nitrogen) 15 mg/dL (9.8-20.1); Bilirubin, Total 1.3 mg/dL (0.2-1.2); Calc. Creatinine Clearance 30 mL/min (70-130); Calcium 8.6 mg/dL (7.8-10.44); Carbon Dioxide 13 mmol/L (23-31); Chloride 114 mmol/L (98-107); Estimated GFR 48; Globulin 3.9 g/dL (2.4-3.5); Glucose 142 mg/dL (83-110); Potassium 4.4 mmol/L (3.5-5.1); Protein, Total 6.3 g/dL (5.8-8.1); Sodium 140 mmol/L (136-145)
[2024-07-23] MEDS: Lidocaine 4% Patch TD SCH (08:45)
[2024-07-23] MEDS: Cyclobenzaprine 10 MG TAB PO SCH (10:37)
[2024-07-24] MEDS: methylPREDNISolone Sod Succ 40 MG VIAL IVP SCH (08:05)
[2024-07-24 09:02] LABS: Lactic Acid 2.08 mmol/L (0.5-2.2)
[2024-07-24] MEDS ORDERED: Loperamide HCl 2 MG CAP PO PRN (09:36)
[2024-07-24] MEDS: Sodium Bicarbonate 75 MEQ in Dextrose 5% in Water 1,000 ML IV SCH (10:33)
[2024-07-24] MEDS: Loperamide HCl 2 MG CAP PO SCH (10:34)
[2024-07-24] MEDS: Sodium Bicarbonate Tab 325 MG TAB PO SCH (10:34)
[2024-07-24] MEDS: Saccharomyces boulardii 250 MG CAP PO SCH (10:34)
[2024-07-24] MEDS: Ipratropium/Albuterol 3 ML NEB NEB SCH (14:04)
[2024-07-24] MEDS: Amoxicillin/Potassium Clav 875 MG TAB PO SCH (20:16)
[2024-07-25 08:19] LABS: Anion Gap 15 mmol/L (10-20); BUN (Urea Nitrogen) 19 mg/dL (9.8-20.1); Calc. Creatinine Clearance 32 mL/min (70-130); Calcium 8.6 mg/dL (7.8-10.44); Carbon Dioxide 21 mmol/L (23-31); Chloride 104 mmol/L (98-107); Estimated GFR 50; Glucose 103 mg/dL (83-110); Potassium 2.7 mmol/L (3.5-5.1); Sodium 137 mmol/L (136-145)
[2024-07-25] MEDS: Saccharomyces boulardii 250 MG CAP PO SCH (09:12)
[2024-07-25] MEDS: predniSONE 20 MG TAB PO SCH (09:12)
[2024-07-25] MEDS ORDERED: Electrolyte Replacement Protocol 1 EACH FS SCH (10:00)
[2024-07-25] MEDS ORDERED: Potassium Chloride 20 MEQ in Premix 2 BAG IVPB SCH (10:00)
[2024-07-25 10:33] LABS: Magnesium 1.3 mg/dL (1.6-2.6)
[2024-07-25] MEDS: Potassium Chloride 20 MEQ TAB PO SCH (11:33)
[2024-07-25] MEDS: Magnesium Sulfate In Water 4 GM in Premix 1 BAG IVPB SCH (12:40)
[2024-07-25] MEDS: Potassium Chloride 20 MEQ in Premix 1 BAG IVPB SCH (14:47)
[2024-07-25] MEDS: Potassium Chloride 20 MEQ in Premix 2 BAG IVPB SCH (16:00)
[2024-07-25] MEDS: Cyclobenzaprine 10 MG TAB PO PRN (20:05)
[2024-07-26 05:24] LABS: Anion Gap 15 mmol/L (10-20); BUN (Urea Nitrogen) 29 mg/dL (9.8-20.1); Calc. Creatinine Clearance 29 mL/min (70-130); Calcium 8.6 mg/dL (7.8-10.44); Carbon Dioxide 22 mmol/L (23-31); Chloride 107 mmol/L (98-107); Estimated GFR 45; Glucose 122 mg/dL (83-110); Magnesium 2.6 mg/dL (1.6-2.6); Potassium 4.8 mmol/L (3.5-5.1); Sodium 139 mmol/L (136-145)
[2024-07-26 07:20] VITALS: TEMP 97.8
[2024-07-26 16:17] VITALS: BP 119/56
== END 2024-07-26 18:26 | disposition home or self-care (01) | DRG 871 ==
LOC: ERS 14:49 → T4-B 17:47
PROVIDERS: ADMIT Physician Assistant; ATTEND Family Medicine
DX: A41.9 Sepsis, unspecified organism (principal); J15.69 Pneumonia due to other Gram-negative bacteria; J96.21 Acute and chronic respiratory failure with hypoxia; N17.9 Acute kidney failure, unspecified; J96.10 Chronic respiratory failure, unspecified whether with hypoxia or hypercapnia; J44.1 Chronic obstructive pulmonary disease with (acute) exacerbation; E87.21 Acute metabolic acidosis; J43.9 Emphysema, unspecified; D56.3 Thalassemia minor; E87.6 Hypokalemia; E83.42 Hypomagnesemia; R65.20 Severe sepsis without septic shock; I12.9 Hypertensive chronic kidney disease with stage 1 through stage 4 chronic kidney disease, or unspecified chronic kidney disease; N18.31 Chronic kidney disease, stage 3a; D56.9 Thalassemia, unspecified; Z90.710 Acquired absence of both cervix and uterus; Z99.81 Dependence on supplemental oxygen; Z90.49 Acquired absence of other specified parts of digestive tract; Z98.890 Other specified postprocedural states; Z87.891 Personal history of nicotine dependence
CPT/HCPCS: 36415; 71045; 71260; 74160; 80048; 80053; 80202; 83605; 83690; 83735; 83880; 84484; 85025; 87040; 87081; 87449; 87899; 93005; 94640; 96365; J1644; J2405; J2543; J2919; J3370; J3475; J3480; J7030; J7050; J7070; J7512; J7620; Q9967

== ENCOUNTER 2024-08-10 09:33 | Outpatient (CLI) | payer MEDICARE | END 2024-08-10 09:34 | disposition home or self-care (01) | LOC: RAD 09:33 | PROVIDERS: ATTEND Internal Medicine Critical Care Medicine | DX: R06.00 Dyspnea, unspecified (principal); J98.4 Other disorders of lung; R91.8 Other nonspecific abnormal finding of lung field | CPT/HCPCS: 71046 ==

== ENCOUNTER 2024-11-10 10:47 | Outpatient (CLI) | payer OTHER | END 2024-11-10 10:48 | disposition home or self-care (01) | LOC: BICRAD 10:47 | PROVIDERS: ATTEND Family Medicine | DX: J44.1 Chronic obstructive pulmonary disease with (acute) exacerbation (principal); J18.1 Lobar pneumonia, unspecified organism | CPT/HCPCS: 71046 ==

== ENCOUNTER 2025-05-01 07:56 | Outpatient (CLI) | payer OTHER | END 2025-05-01 07:57 | disposition home or self-care (01) | LOC: RAD 07:56 | PROVIDERS: ATTEND Internal Medicine Critical Care Medicine | DX: R06.00 Dyspnea, unspecified (principal) | CPT/HCPCS: 71046 ==

== ENCOUNTER 2025-06-26 11:40 | Emergency (ER) | payer OTHER ==
[2025-06-26 12:23] LABS: #Basophils 0.05 10x3/uL (0.0-0.2); #Eosinophils 0.16 10x3/uL (0.0-0.7); #Monocytes 0.54 10x3/uL (0.11-0.59); #Neutrophils 5.80 10x3/uL (1.40-6.50); %Basophils 0.6 % (0.0-1.0); %Eosinophils 1.9 % (0.0-10.0); %Lymphocytes 20.3 % (21.0-51.0); %Monocytes 6.5 % (0.0-10.0); %Neutrophils 69.9 % (42.0-75.0); Hematocrit 35.6 % (36.0-47.0); Hemoglobin 11.2 g/dL (12.0-16.0); Mean Corpuscular Hemoglobin 20.5 pg (27.0-31.0); Mean Corpuscular Volume 65.2 fL (78.0-98.0); Platelet Count 188 10x3/uL (130-400); Red Blood Cell (RBC) Count 5.46 mill/uL (4.20-5.40); White Blood Cell (WBC) Count 8.31 10x3/uL (4.8-10.8)
[2025-06-26 12:41] LABS: ALT (SGPT) 16 U/L (Less than 34); AST (SGOT) 31 U/L (11-34); Albumin 4.0 g/dL (3.1-4.5); Alkaline Phosphatase 57 U/L (40-110); Anion Gap 15 mmol/L (10-20); BUN (Urea Nitrogen) 20 mg/dL (9.8-20.1); Bilirubin, Total 2.1 mg/dL (0.3-1.2); Calc. Creatinine Clearance 0 mL/min (70-130); Calcium 9.4 mg/dL (7.8-10.44); Carbon Dioxide 20 mmol/L (23-31); Chloride 111 mmol/L (98-107); Globulin 3.2 g/dL (2.4-3.5); Glucose 112 mg/dL (83-110); Potassium 3.6 mmol/L (3.5-5.1); Sodium 142 mmol/L (136-145)
[2025-06-26] MEDS ORDERED: Ketorolac Tromethamine 30 MG (1 mL) VIAL ONE ×2 (12:41→12:43)
[2025-06-26] MEDS ORDERED: Magnesium 2 GM/50 ML BAG (IN WATER) ONE (12:42)
[2025-06-26 12:56] LABS: Anisocytosis SLIGHT = 6-15 cells HPF (0-5); Microcytosis SLIGHT = 6-15 cells HPF (0-5); Platelet Adequacy Comment Platelets Normal; Polychromasia SLIGHT = 2-3 cells HPF (0-2); Schistocytes SLIGHT = 2-5 cells HPF (0-1); Target Cells SLIGHT = 2-5 cells HPF (0-1)
[2025-06-26 15:44] LABS: CAUTI Indications for Culture Alt mental st,lethar; Glucose, Urine (Dipstick) Normal (Negative); Leukocyte 75 Leu/uL (Negative); Protein, Urine (Dipstick) Negative (Neg-Trace); Specific Gravity, Urine 1.013 (1.002-1.036)
[2025-06-26 15:46] LABS: Bacteria/HPF 1+ HPF (None Seen); Urine Culture Reflex No No
== END 2025-06-26 15:49 | disposition home or self-care (01) ==
LOC: ERS 11:40
DX: J44.9 Chronic obstructive pulmonary disease, unspecified (principal); J98.4 Other disorders of lung; E80.6 Other disorders of bilirubin metabolism; E78.5 Hyperlipidemia, unspecified; I12.9 Hypertensive chronic kidney disease with stage 1 through stage 4 chronic kidney disease, or unspecified chronic kidney disease; N18.9 Chronic kidney disease, unspecified; D63.1 Anemia in chronic kidney disease; Z79.899 Other long term (current) drug therapy; Z55.6 Problems related to health literacy
CPT/HCPCS: 71045; 73030; 80053; 81001; 83880; 84484; 85025; 87086; 93005; 94760; J1885; J3475; 96365; 96375